=== PATIENT | male | born 1985 | race Caucasian/White ===

== ENCOUNTER 2017-02-13 12:13 | Emergency (ER) | payer MEDICAID | END 2017-02-13 12:50 | disposition home or self-care (01) | DX: J40 Bronchitis, not specified as acute or chronic (principal); R03.0 Elevated blood-pressure reading, without diagnosis of hypertension; G62.9 Polyneuropathy, unspecified; K21.9 Gastro-esophageal reflux disease without esophagitis; F17.200 Nicotine dependence, unspecified, uncomplicated ==

== ENCOUNTER 2017-06-06 19:01 | Emergency (ER) | payer MEDICAID ==
[2017-06-06 19:16] VITALS: BP 121/83
--- NOTE | 2017-06-06 20:31 | ED Physician Documentation ---
PD HPI HEADACHE - Stated complaint Stated Complaint: MIGRAINE - Chief complaint Chief Complaint: Neuro - History obtained from History obtained from: Patient - History of Present Illness Timing - onset: How many months ago (1 1/2 months of neck pain to some degree after a head injury (tree branch fell onto his tent when camping, with reported LOC). Seen in [place] [facility] with CTs of head and neck. Released from ER. has had some neck pain to some degree since, and intermittent migraine type headaches. Current migraine has been the past day.) Timing - onset during: Rest Timing - duration: Days (1) Timing - details: Gradual onset, Still present Worst headache ever?: No: Worst headache ever? Location: Back (over the top to frontal area) Quality: Throbbing, Aching Associated symptoms: Nausea. No: Fever, Weakness, Numbness, Vision changes Improved by: Dark room. No: Meds (tramadol has been helping neck but is out. Has not had any physical treatment such as PT nor chiropractic.) Worsened by: Light Contributing factors: Trauma (see above). No: Recent illness Similar symptoms before: Diagnosis (migraines infrequent in the past, several now the past month.) Review of Systems Constitutional: denies: Fever, Chills Eyes: reports: Photophobia. denies: Loss of vision Ears: denies: Ear pain, Drainage/discharge Nose: denies: Rhinorrhea / runny nose, Congestion Throat: denies: Sore throat Respiratory: denies: Cough GI: reports: Nausea. denies: Vomiting, Diarrhea Skin: denies: Rash, Lesions Neurologic: reports: Headache. denies: Focal weakness, Numbness, Near syncope, Altered mental status PD PAST MEDICAL HISTORY - Past Medical History Past Medical History: Yes Cardiovascular: None Respiratory: None Neuro: Peripheral neuropathy, Seizure disorder Endocrine/Autoimmune: None GI: GERD, Chronic diarrhea : None HEENT: None Psych: None Musculoskeletal: None Derm: None - Past Surgical History Past Surgical History: Yes General: Colonoscopy HEENT: Tonsil/Adenoidectomy - Present Medications Home Medications: Ambulatory Orders Medication Instructions Recorded Confirmed Gabapentin [Neurontin] 800 mg PO TID 01/03/15 06/06/17 Butalb/Acetaminophen/Caffeine 1 each PO Q8H PRN #15 capsule 06/06/17 [[id number]-Fhsehdwf-Udii 50-300-40] Dexamethasone [Decadron] 4 mg PO DAILY #5 tablet 06/06/17 Naproxen 375 mg PO BID #20 tablet 06/06/17 Promethazine [Phenergan] 25 mg PO Q8H PRN #15 tab 06/06/17 Tizanidine HCl 4 mg PO TID #30 capsule 06/06/17 Tramadol HCl 50 mg PO Q6H PRN #30 tablet 06/06/17 tiZANidine [Zanaflex] 4 mg PO DAILY PM 06/06/17 06/06/17 - Allergies Allergies/Adverse Reactions: Allergies Allergy/AdvReac Type Severity Reaction Status Date / Time No Known Drug Allergies Allergy Verified 06/06/17 21:06 - Social History Does the pt smoke?: No Smoking Status: Former smoker Does the pt drink ETOH?: No Does the pt have substance abuse?: No - Immunizations Immunizations are current?: Yes Immunizations: TDAP current <10years - POLST Patient has POLST: No PD ED PE NORMAL - Vitals Vital signs reviewed: Yes - General General: Alert and oriented X 3, Well developed/nourished - HEENT HEENT: Atraumatic, PERRL (light sensitive), Pharynx benign - Neck Neck: Supple, no meningeal sign, No adenopathy, Other (muscular tenderness bilaterally without bony midline tender. ) - Cardiac Cardiac: RRR, No murmur - Respiratory Respiratory: Clear bilaterally - Abdomen Abdomen: Soft, Non tender - Derm Derm: Normal color, Warm and dry - Extremities Extremities: No tenderness to palpate, Normal ROM s pain - Neuro Neuro: Alert and oriented X 3, filler wiper 2-12 intact, No motor deficit, No sensory deficit, Normal speech - Psych Psych: Normal mood Results - Vitals Vitals: Vital Signs - 24 hr 06/06/17 19:14 Temperature 36.7 C Heart Rate 87 Respiratory 14 Rate Blood Pressure 121/83 H O2 Saturation 100 Oxygen O2 Source Room air PD MEDICAL DECISION MAKING - ED course Complexity details: considered differential (more chronic neck pain that is worse, and now migraine type symptoms as well. No red flags per se. Has had several since head injury April 23, and was seen in [facility] ER with CT head and neck per patient. ), d/w patient Departure - Departure Disposition: 01 Home, Self Care Clinical Impression: Neck muscle strain Qualifiers: Encounter type: initial encounter Qualified Code(s): S16.1XXA - Strain of muscle, fascia and tendon at neck level, initial encounter Headache, migraine Qualifiers: Migraine type: without aura Status migrainosus presence: without status migrainosus Intractability: not intractable Qualified Code(s): G43.009 - Migraine without aura, not intractable, without status migrainosus Condition: Stable Record reviewed to determine appropriate education?: Yes Instructions: ED Sprain Strain Neck, ED Headache Migraine Follow-Up: [facility] [Provider Group] Prescriptions: Butalb/Acetaminophen/Caffeine [Csnyut-Yzweufji-Fpii 50-300-40] 1 each PO Q8H PRN #15 capsule PRN Reason: Migraine Dexamethasone [Decadron] 4 mg PO DAILY #5 tablet Naproxen 375 mg PO BID #20 tablet Promethazine [Phenergan] 25 mg PO Q8H PRN #15 tab PRN Reason: Migraine Tizanidine HCl 4 mg PO TID #30 capsule Tramadol HCl 50 mg PO Q6H PRN #30 tablet PRN Reason: Pain Comments: Heat and gentle stretching for the neck. I might suggest chiropractic or massage for the area as well. Continue tizanidine but increase it to 3 times a day for the next week and a half. Naproxen twice daily as an anti-inflammatory and for the pain. Dexamethasone daily for 5 more days as an anti-inflammatory as well. Add tramadol if needed for pain. Can also add Tylenol. For the migraine headaches in particular, could also try Fioricet along with promethazine. Follow-up with [facility] [address], call for an appointment. Discharge Date/Time: 06/06/17 21:07
[2017-06-06] MEDS ORDERED: traMADol 50 MG TABLET PO STA (20:54)
[2017-06-06] MEDS ORDERED: DEXAMETHASONE 10 MG/ML VIAL PO STA (20:54)
[2017-06-06] MEDS ORDERED: METHOCARBAMOL 500 MG TABLET PO STA (20:55)
[2017-06-06] MEDS ORDERED: PROMETHAZINE 25 MG TABLET PO STA (21:01)
[2017-06-06] MEDS ORDERED: DEXAMETHASONE 10 MG/ML VIAL ONE (21:03)
[2017-06-06] MEDS ORDERED: traMADol 50 MG TABLET PO ONE (21:03)
[2017-06-06] MEDS ORDERED: METHOCARBAMOL 500 MG TABLET PO ONE (21:04)
[2017-06-06] MEDS ORDERED: PROMETHAZINE 25 MG TABLET ONE (21:07)
== END 2017-06-06 21:07 | disposition home or self-care (01) ==
LOC: ED 19:01
DX: S16.1XXD Strain of muscle, fascia and tendon at neck level, subsequent encounter (principal); W20.8XXD Other cause of strike by thrown, projected or falling object, subsequent encounter; G43.009 Migraine without aura, not intractable, without status migrainosus; G62.9 Polyneuropathy, unspecified; K21.9 Gastro-esophageal reflux disease without esophagitis; Z87.891 Personal history of nicotine dependence
CPT/HCPCS: 99283; A9270; Q0169

== ENCOUNTER 2018-11-14 14:53 | Inpatient (IN) | payer MEDICAID ==
[2018-11-14 16:54] LABS: BASOPHILS % (AUTO) 0.5 %; EOSINOPHILS % (AUTO) 0.2 %; HGB - HEMOGLOBIN 16.1 g/dL (14.0-18.0); LYMPHOCYTES % (AUTO) 27.2 %; MEAN CORPUSCULAR HGB CONC 34.4 g/dL (32.0-36.0); MEAN CORPUSCULAR VOLUME 104.5 fL (80.0-94.0); MEAN PLATELET VOLUME 7.5 fL (7.4-11.4); MONOCYTES # (AUTO) 0.4 10^3/uL (0.0-1.0); MONOCYTES % (AUTO) 11.6 %; NEUTROPHILS # (AUTO) 2.3 10^3/uL (1.5-6.6); NEUTROPHILS % (AUTO) 60.5 %; PLT - PLATELET COUNT 173 10^3/uL (130-450); RED BLOOD COUNT 4.48 10^6/uL (4.70-6.10); RED CELL DISTRIBUTION WIDTH 15.6 % (12.0-15.0); WHITE BLOOD COUNT 3.7 x10^3/uL (4.8-10.8)
[2018-11-14 17:14] LABS: ALBUMIN/GLOBULIN RATIO 1.3 (1.0-2.2); BILIRUBIN,TOTAL 6.2 mg/dL (0.2-1.0); CALCIUM 9.1 mg/dL (8.5-10.3); CREATININE 0.8 mg/dL (0.6-1.2); TOTAL PROTEIN 7.1 g/dL (6.7-8.2)
[2018-11-14] MEDS ORDERED: SODIUM CHLORIDE 0.9% 1,000 ML IV ONE ×3 (18:49→23:50)
--- NOTE | 2018-11-14 19:04 | ED Physician Documentation ---
PD HPI NVD - Stated complaint Stated Complaint: VOMITING, HEADACHE - Chief complaint Chief Complaint: Abd Pain - History obtained from History obtained from: Patient - History of Present Illness Timing - onset: How many days ago (3) Timing - duration: Days Timing - details: Abrupt onset Pain level max: 5 Pain level now: 5 Associated symptoms: Abdominal pain (crampy, diffuse), Other (nausea, vomiting, diarrhea). No: Fever Contributing factors: Alcohol use (alcoholic) Improved by: Vomiting Worsened by: Eating Recently seen: Not recently seen - Additonal information Additional information: 33-year-old male presents to the emergency department nausea, vomiting, diarrhea over the past 3 days. He is an alcoholic and drinks approximately 12 alcoholic beverages a day. States that he had to have an alcoholic drink to come here today. Review of Systems Ten Systems: 10 systems reviewed and negative Constitutional: denies: Fever, Chills Nose: denies: Rhinorrhea / runny nose, Congestion Throat: denies: Sore throat Cardiac: denies: Chest pain / pressure Respiratory: denies: Cough GI: reports: Diarrhea. denies: Constipation, Hematemesis, Bloody / black stool : denies: Dysuria Skin: denies: Rash PD PAST MEDICAL HISTORY - Past Medical History Cardiovascular: None Respiratory: None Endocrine/Autoimmune: None GI: GERD, Chronic diarrhea : None HEENT: None Psych: None Musculoskeletal: None Derm: None - Past Surgical History Past Surgical History: Yes General: Colonoscopy HEENT: Tonsil/Adenoidectomy - Present Medications Home Medications: Ambulatory Orders Medication Instructions Recorded Confirmed Gabapentin [Neurontin] 800 mg PO TID 01/03/15 06/06/17 Butalb/Acetaminophen/Caffeine 1 each PO Q8H PRN #15 capsule 06/06/17 [[id number]-Wivovyzr-Johb 50-300-40] Dexamethasone [Decadron] 4 mg PO DAILY #5 tablet 06/06/17 Naproxen 375 mg PO BID #20 tablet 06/06/17 Promethazine [Phenergan] 25 mg PO Q8H PRN #15 tab 06/06/17 Tizanidine HCl 4 mg PO TID #30 capsule 06/06/17 Tramadol HCl 50 mg PO Q6H PRN #30 tablet 06/06/17 tiZANidine [Zanaflex] 4 mg PO DAILY PM 06/06/17 06/06/17 - Allergies Allergies/Adverse Reactions: Allergies Allergy/AdvReac Type Severity Reaction Status Date / Time No Known Drug Allergies Allergy Verified 06/06/17 21:06 - Social History Does the pt smoke?: No Smoking Status: Former smoker Does the pt drink ETOH?: No Does the pt have substance abuse?: No - Immunizations Immunizations are current?: Yes Immunizations: TDAP current <10years - POLST Patient has POLST: No PD ED PE NORMAL - Vitals Vital signs reviewed: Yes - General General: Alert and oriented X 3, No acute distress, Well developed/nourished - HEENT HEENT: PERRL, Moist mucous membranes, Other (Mild jaundice) - Neck Neck: Supple, no meningeal sign - Cardiac Cardiac: RRR, Strong equal pulses - Respiratory Respiratory: No respiratory distress, Clear bilaterally - Abdomen Abdomen: Soft, Non distended, Other (Tender palpation right upper quadrant. No peritoneal signs) - Back Back: No CVA TTP, No spinal TTP - Derm Derm: Warm and dry, No rash - Extremities Extremities: No edema - Neuro Neuro: Alert and oriented X 3 - Psych Psych: Normal mood, Normal affect Results - Vitals Vitals: Vital Signs - 24 hr 11/14/18 11/14/18 11/14/18 15:32 18:41 21:05 Temperature 36.8 C 36.7 C Heart Rate 114 H 96 86 Respiratory 18 16 18 Rate Blood Pressure 145/88 H 143/94 H 119/79 O2 Saturation 99 98 98 11/14/18 22:28 Temperature Heart Rate 90 Respiratory 18 Rate Blood Pressure 107/77 O2 Saturation 96 Oxygen O2 Source Room air - Labs Labs: Laboratory Tests 11/14/18 11/14/18 11/14/18 15:38 16:49 16:49 WBC 3.7 L RBC 4.48 L Hgb 16.1 Hct 46.9 MCV 104.5 H MCH 36.0 H MCHC 34.4 RDW 15.6 H Plt Count 173 MPV 7.5 Neut # (Auto) 2.3 Lymph # (Auto) 1.0 L [place] # (Auto) 0.4 Eos # (Auto) 0.0 Baso # (Auto) 0.0 Absolute Nucleated RBC 0.00 Nucleated RBC % 0.1 PT INR APTT Sodium 128 L Potassium 3.7 Chloride 87 L Carbon Dioxide 29 Anion Gap 12.0 BUN 13 Creatinine 0.8 Estimated GFR (MDRD) 111 Glucose 88 Calcium 9.1 Total Bilirubin 6.2 H AST 779 H ALT 534 H Alkaline Phosphatase 79 Total Protein 7.1 Albumin 4.0 Globulin 3.1 Albumin/Globulin Ratio 1.3 Lipase 69 H Ethyl Alcohol Influenza A (Rapid) Negative Influenza B (Rapid) Negative 11/14/18 11/14/18 11/14/18 16:49 16:49 16:49 WBC RBC Hgb Hct MCV MCH MCHC RDW Plt Count MPV Neut # (Auto) Lymph # (Auto) [place] # (Auto) Eos # (Auto) Baso # (Auto) Absolute Nucleated RBC Nucleated RBC % PT 18.5 H INR 1.6 H APTT 41.3 H Sodium Potassium Chloride Carbon Dioxide Anion Gap BUN Creatinine Estimated GFR (MDRD) Glucose Calcium Total Bilirubin AST ALT Alkaline Phosphatase Total Protein Albumin Globulin Albumin/Globulin Ratio Lipase Ethyl Alcohol 177.0 Influenza A (Rapid) Influenza B (Rapid) - Rads (name of study) RUQ US Radiology: Prelim report reviewed, EMP read contemporaneously, See rad report (Large fatty liver. Mild irregular gallbladder wall thickening, with no gallstones or dilated ducts. ) PD MEDICAL DECISION MAKING - ED course Complexity details: reviewed old records, reviewed results, re-evaluated patient, considered differential, d/w patient, d/w training consultant ED course: 33-year-old male, heavy alcoholic who presents to the emergency department with what appears to be an alcoholic hepatitis. Given Ativan, Zofran. His meld score is 25 and his maddrey discriminant factor is 36. I discussed with the hospitalist here, Dr. Gastelum who is concerned that he may go into withdrawal and need an ICU bed, there are no ICU beds available here. Contacted [facility] in [place], however no beds are available there either. No beds available at [facility]. I discussed the case with Dr. Vasquez at [address], [facility] in [place], He does not feel that the patient needs an ICU bed at this time. He states should the patient require ICU level care, he will gladly accept the patient in transfer at that point. Recommends admission here and to call him if the patient worsens to the point of needing ICU bed. Recontacted Dr. Gastelum, she accepts an admission at this time. This document was made in part using voice recognition software. While efforts are made to proofread this document, sound alike and grammatical errors may occur. Departure - Departure Disposition: 66 [facility] DC/Xfer Clinical Impression: Hyponatremia, Dehydration Alcoholic hepatitis Qualifiers: Ascites presence: without ascites Qualified Code(s): K70.10 - Alcoholic hepatitis without ascites Alcohol intoxication Qualifiers: Complication of substance-induced condition: uncomplicated Qualified Code(s): F10.920 - Alcohol use, unspecified with intoxication, uncomplicated Condition: Stable Discharge Date/Time: 11/15/18 00:36
[2018-11-14] MEDS ORDERED: ONDANSETRON 4 MG/2 ML VIAL IVP STA (19:05)
[2018-11-14] MEDS ORDERED: LORazepam 2 MG/ML VIAL IVP STA ×2 (19:05→23:46)
[2018-11-14] MEDS ORDERED: PANTOPRAZOLE 40 MG VIAL IVP STA (19:05)
[2018-11-14 19:13] LABS: INR 1.6 (0.8-1.2); PT - PROTHROMBIN TIME 18.5 secs (9.9-12.6)
--- NOTE | 2018-11-14 20:01 | Ultrasound Report ---
Reason: elevated LFT's, elevated Bilirubin Procedure Date: 11/14/2018 Accession Number: [id number] / [id number] Procedure: US - Abdomen Limited CPT Code: FULL RESULT: EXAM: ABDOMEN ULTRASOUND LIMITED, RUQ EXAM DATE: 11/14/2018 07:49 PM. CLINICAL HISTORY: Elevated LFTs. Elevated Bilirubin. COMPARISON: None. TECHNIQUE: Real-time scanning was performed with static images obtained. FINDINGS: Liver: Enlarged. Heterogeneous echogenic echotexture. 20 cm. Main portal vein flow: Hepatopetal. Gallbladder: Mild irregular wall thickening. No stones or sonographic Stokes's sign. Biliary System: CBD measures 4 mm. No intrahepatic or extrahepatic ductal dilatation. Other: The visualized pancreas and right kidney are unremarkable. No free fluid. IMPRESSION: 1. Large fatty liver. 2. Mild irregular gallbladder wall thickening, with no gallstones or dilated ducts. RADIA
[2018-11-15] MEDS ORDERED: MAGNESIUM SULFATE 2 GRAM 2 GM/50 ML BAG IV ONE (00:06)
[2018-11-15 00:36] LABS: BASOPHILS % (AUTO) 0.4 %; EOSINOPHILS % (AUTO) 0.7 %; HGB - HEMOGLOBIN 13.4 g/dL (14.0-18.0); LYMPHOCYTES # (AUTO) 1.2 10^3/uL (1.5-3.5); LYMPHOCYTES % (AUTO) 37.1 %; MEAN CORPUSCULAR HEMOGLOBIN 36.5 pg (27.0-31.0); MEAN CORPUSCULAR HGB CONC 34.9 g/dL (32.0-36.0); MEAN CORPUSCULAR VOLUME 104.5 fL (80.0-94.0); MEAN PLATELET VOLUME 7.2 fL (7.4-11.4); MONOCYTES # (AUTO) 0.3 10^3/uL (0.0-1.0); MONOCYTES % (AUTO) 10.1 %; NEUTROPHILS # (AUTO) 1.7 10^3/uL (1.5-6.6); NEUTROPHILS % (AUTO) 51.7 %; PLT - PLATELET COUNT 131 10^3/uL (130-450); RED BLOOD COUNT 3.68 10^6/uL (4.70-6.10); RED CELL DISTRIBUTION WIDTH 15.3 % (12.0-15.0); WHITE BLOOD COUNT 3.2 x10^3/uL (4.8-10.8)
[2018-11-15 00:40] LABS: PT - PROTHROMBIN TIME 22.7 secs (9.9-12.6)
[2018-11-15 00:51] LABS: ALBUMIN 2.9 g/dL (3.2-5.5); ALBUMIN/GLOBULIN RATIO 1.3 (1.0-2.2); CALCIUM 7.6 mg/dL (8.5-10.3); CREATININE 0.7 mg/dL (0.6-1.2); MAGNESIUM 1.6 mg/dL (1.7-2.8); TOTAL PROTEIN 5.1 g/dL (6.7-8.2)
[2018-11-15] MEDS: SODIUM CHLORIDE FLUSH 0.9% 10 ML SYRINGE IVP SCH ×4 (01:17→17:27)
[2018-11-15] MEDS: IBUPROFEN 400 MG TABLET PO PRN ×4 (01:37→20:08)
[2018-11-15] MEDS: ONDANSETRON ODT 4 MG TABLET TL PRN ×2 (01:37→12:41)
--- NOTE | 2018-11-15 01:39 | HISTORY & PHYSICAL EXAMINATION ---
Chief Complaint - Chief Complaint Chief Complaint: Nausea and vomiting with abdominal pain in an alcoholic for the last 3 days History of Present Illness - Admitted From Admitted From:: Home/emergency room - History Obtained From Records Reviewed: Miriam History obtained from: Patient, Dr. Mayer, [facility] Exam Limitations: Mild sleepiness - History of Present Illness HPI Comment/Other: This is an unfortunate 33-year-old white male who is a very poor historian but this is currently intoxicated. He has a history of alcohol abuse, and has previous withdrawal seizures. He has been hospitalized 2-3 times in our hospit al because of this. He is also been seen in the emergency room for multiple encounters. He presented himself to the emergency room today because of nausea, vomiting, diarrhea for the last 3 days. He drinks approximately 12 hard cider drinks a day. He has diffuse crampy abdominal pain, no blood in his stool. Unable to keep anything down except the alcohol for the last 3 days. He was evaluated in the emergency room by Dr. Mayer. Afebrile, tachycardic at 114, with a blood pressure of 145/88 and an oxygen saturation of 99. He is alert and oriented. He is a soft, nondistended abdomen. But he is tender over the right upper quadrant. No peritoneal signs. He has mild jaundice. His whit e cell count is low at 3.7, hemoglobin is 16.1. Platelets 173. His INR is 1.6. Sodium 128. BUN 13, creatinine 0.8, total bili 6.2, AST 779, ALT 534, lipase 69. Ethyl alcohol level is 177. Because of his acute alcoholic hepatitis, that is quite severe, Dr. Mayer attempted transfer to an outside facility. Especially for a higher level of care. Currently there are no beds at [facility]. [facility] in [place] did agree to take the patient only if he decompensated enough to need ICU care. History - Past Medical History Cardiovascular: reports: None Respiratory: reports: None Neuro: reports: Seizure disorder Endocrine/Autoimmune: reports: None GI: reports: GERD, Chronic diarrhea : reports: None HEENT: reports: None Psych: reports: None Musculoskeletal: reports: None Derm: reports: None MRSA Hx?: No - Past Surgical History General: reports: Colonoscopy HEENT: reports: Tonsil/Adenoidectomy - Family & Social History Family History Comment/Other: Father of complications of alcoholism when he was in his 60s. Complication included acute alcohol poisoning. Mother is alive And she also has problems with alcoholism. One sister is alive and well positive for diabetes. Positive for heart disease. Negative for cancer. No children Living arrangement: At home Living Situation: With spouse/s.o. Social History Notes: Social history born in [facility]. Living on [facility] since the age of 1. Endorses the use of cannabis, but no heroin, speed, methamphetamines. Drinks on a daily basis.12 hard ciders a day. Never smoked. Unable to hold down a job. without any children.Currently living with his girlfriend in [place]. She does not have any problems with alcoholism or recreational substance abuse. - Substance History Use: Uses substance without health or social issues: Cannabis Abuse: Recurrent use of substance despite neg consequences: Alcohol Abuse Issues: Intoxication, Anxiety Disorder, Other (Seizures and alcoholic hepatitis with alcoholic liver disease) Dependence: Experiences withdrawal or developed tolerances: Alcohol Dependence Issues: Intoxication, Anxiety Disorder, Withdrawal - POLST Patient has POLST: No POLST Status: Full Code Meds/Allgy - Home Medications Home Medications: Ambulatory Orders Medication Instructions Recorded Confirmed Gabapentin [Neurontin] 800 mg PO TID 01/03/15 06/06/17 Butalb/Acetaminophen/Caffeine 1 each PO Q8H PRN #15 capsule 06/06/17 [[id number]-Likglubb-Jcdt 50-300-40] Dexamethasone [Decadron] 4 mg PO DAILY #5 tablet 06/06/17 Naproxen 375 mg PO BID #20 tablet 06/06/17 Promethazine [Phenergan] 25 mg PO Q8H PRN #15 tab 06/06/17 Tizanidine HCl 4 mg PO TID #30 capsule 06/06/17 Tramadol HCl 50 mg PO Q6H PRN #30 tablet 06/06/17 tiZANidine [Zanaflex] 4 mg PO DAILY PM 06/06/17 06/06/17 - Allergies Allergies/Adverse Reactions: Allergies Allergy/AdvReac Type Severity Reaction Status Date / Time No Known Drug Allergies Allergy Verified 06/06/17 21:06 Review of Systems - Constitutional Constitutional: reports: Fatigue, Malaise, Weakness, Poor appetite, Diaphoresis. denies: Fever, Chills - Eyes Eyes: denies: Pain, Irritation, Amaurosis, Blurred vision, Field loss, Vision loss - Ears, Nose & Throat Ears, Nose & Throat: denies: Ear pain, Hearing loss, Hearing aids, Tinnitus, Vertigo, Nasal obstruction, Nasal congestion, Postnasal drainage, Sore throat - Cardiovascular Cariovascular: reports: Decr. exercise tolerance. denies: Irregular heart rate, Palpitations, Chest pain, Edema, Lightheadedness, Syncope, Exertional dyspnea - Respiratory Respiratory: reports: Cough. denies: Sputum production, Wheezing, Snoring, Hemoptysis, Orthopnea, Apnea - Gastrointestinal Gastrointestinal: reports: Abdominal pain, Abdominal distention, Diarrhea, Nausea, Vomiting, Reflux/heartburn, Poor appetite. denies: Black stools, Bloody stools, Coffee grounds emesis, Bloating - Genitourinary Genitourinary: denies: Dysuria, Frequency, Urgency, Hematuria, Incontinence - Musculoskeletal Musculoskeletal: reports: Muscle aches. denies: Muscle pain, Back pain, Stiffness - Integumentary Integumentary: denies: Rash, Pruritis, Lesions, Dryness - Neurological Neurological: reports: General weakness, Headache. denies: Focal weakness, Dizziness, Numbness, Memory problems, Pre-existing deficit - Psychiatric Psychiatric: reports: Depression. denies: Anxiety, Suicidal, Delusions - Endocrine Endocrine: denies: Polyuria, Polydypsia, Polyphagia - Hematologic/Lymphatic Hematologic/Lymphatic: reports: Anemia, Bruising Prior Level of Functionality: Still able to do all his activities of daily living when he is well. 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 Still drives a car. Currently living with his girlfriend in [place]. Sometimes lives with his mother. Exam - Vital Signs Vital Signs: Vital Signs x48h Temp Pulse Pulse Resp BP BP Pulse Ox 11/15/18 00:50 36.8 C 76 16 132/83 H 98 11/15/18 00:06 95 16 126/78 97 11/14/18 22:28 90 18 107/77 96 11/14/18 21:05 86 18 119/79 98 11/14/18 18:41 36.7 C 96 16 143/94 H 98 - Physical Exam General Appearance: positive: No acute distress, Lethargic (Eyes are closed, but he will open them at my insistence, and slowly respond to my questions.) Eyes Bilateral: positive: PERRL, EOMI, Other (Scleral icterus present) Neck: positive: No JVD, Lymphadenopathy (R), Lymphadenopathy (L). negative: Sti ff neck, Carotid bruit Respiratory: positive: Chest non-tender, No respiratory distress. negative: Wheezes, Rales, Rhonchi Cardiovascular: positive: Regular rate & rhythm, Tachycardia. negative: Gallop/S4, Friction rub Peripheral Pulses: positive: 1+ Abdomen: positive: Nml bowel sounds, Tenderness (Mild, right upper quadrant and epigastrium.), Hepatomegaly, Other (Mild distention). negative: Guarding, Rebound Skin: positive: Warm, Diaphoresis, Pallor Extremities: positive: Non-tender, Full ROM, No pedal edema Neurologic/Psychiatric: positive: Oriented x3, CN's nml (2-12), Motor nml, Weakness, Other (So far no tremors. No agitation.) Reflexes: Bicep (R): 1+, Bicep (L): 1+, Knee (R): 1+, Knee (L): 1+, Ankle (R): 0, Ankle (L): 0 Babinski Reflex: Right: Down, Left: Down Conclusion/Plan - Problem List (1) Alcoholic hepatitis Conclusion/Plan: Mirza alcoholic hepatitis score is 6 points. Those with a score greater than 9 may benefit from steroids. Meld score is 24. Although he appears to be sedated, there does not appear to be hepatic encephalopathy. Ammonia level was not done, but will be ordered for the morning. Plan: Monitor for infection Monitor for renal failure Ulcer prophylaxis with proton pump inhibitor. Ammonia level in the morning Banana bag Magnesium sulfate 1 g Acute hepatitis panel in the morning Qualifiers: Ascites presence: without ascites Qualified Code(s): K70.10 - Alcoholic hepatitis without ascites (2) Hx of seizure disorder Conclusion/Plan: Due to alcohol withdrawal. At this time he is still currently intoxicated. He may need Keppra for a short duration of time while he is in the hospital. At this time will continue to monitor. (3) Alcohol abuse Conclusion/Plan: At this time without ascites. Mild liver failure. Strongly encouraged to refrain from drinking and have complete abstinence from alcohol. I have explained to him the severity of his illness tonight. I also explained to him that alcohol withdrawal and alcohol withdrawal seizures carry within themselves their own mortality rate. I have encouraged him to seek whatever help he can whether his spiritual, practical, meditative, etc., to stop drinking. He still defines himself as having a quality of life and that he has a mother that loves him and a girlfriend that loves him. (4) Pancytopenia Conclusion/Plan: Most likely from alcohol toxicity, direct the bone marrow. No evidence of th rombocytopenia. Plan: Anemia panel Banana bag - Lab Results Fish Bones: 11/15/18 00:25 11/15/18 00:25 - Diagnostic Imaging Results Diagnostic Imaging Results: positive: Final report reviewed Diagnostic Imaging Results Comments: EXAM: [id number] US/ABDLTD ([id number]) Reason: elevated LFT's, elevated Bilirubin Procedure Date: 11/14/2018 Accession Number: [id number] / [id number] Procedure: US - Abdomen Limited CPT Code: FULL RESULT: EXAM: ABDOMEN ULTRASOUND LIMITED, RUQ EXAM DATE: 11/14/2018 07:49 PM. CLINICAL HISTORY: Elevated LFTs. Elevated Bilirubin. COMPARISON: None. TECHNIQUE: Real-time scanning was performed with static images obtained. FINDINGS: Liver: Enlarged. Heterogeneous echogenic echotexture. 20 cm. Main portal vein flow: Hepatopetal. Gallbladder: Mild irregular wall thickening. No stones or sonographic Stokes's sign. Biliary System: CBD measures 4 mm. No intrahepatic or extrahepatic ductal dilatation. Other: The visualized pancreas and right kidney are unremarkable. No free fluid. IMPRESSION: 1. Large fatty liver. 2. Mild irregular gallbladder wall thickening, with no gallstones or dilated ducts. Core Measures - Anticipated LOS I expect patient to be DC'd or transferred within 96 hours.: Yes - DVT/VTE - Prophylaxis VTE/DVT Device ordered at admit?: Yes
[2018-11-15 02:18] LABS: MUDS CUTOFF CONCENTRATIONS CUTOFF CONC BELOW:
[2018-11-15 02:29] LABS: AMPHETAMINE SCREEN,URINE NEGATIVE (NEGATIVE); BENZODIAZEPINES SCREEN, URINE POSITIVE (NEGATIVE); COCAINE SCREEN URINE NEGATIVE (NEGATIVE); METHADONE SCREEN, URINE NEGATIVE (NEGATIVE); METHAMPHETAMINES SCREEN, URINE NEGATIVE (NEGATIVE); OPIATE SCREEN, URINE NEGATIVE (NEGATIVE); OXYCODONE SCREEN, URINE NEGATIVE (NEGATIVE); PROPOXYPHENE SCREEN, URINE NEGATIVE (NEGATIVE); TRICYCLIC ANTIDEPRESSANT,URINE NEGATIVE (NEGATIVE)
[2018-11-15 06:03] LABS: MEAN RETIC VALUE 119.6; RED BLOOD COUNT 3.7 10^6/uL (4.70-6.10)
[2018-11-15 06:24] LABS: % IRON SATURATION 92 % (20-50); IRON 149 ug/dL (45-182); TOTAL IRON BINDING CAPACITY 162 ug/dL (250-450); TRANSFERRIN 116 mg/dL (180-329)
[2018-11-15] MEDS: PANTOPRAZOLE 40 MG VIAL IVP SCH (06:42)
[2018-11-15] MEDS: ONDANSETRON 4 MG/2 ML VIAL IVP PRN ×2 (08:54→14:56)
[2018-11-15] MEDS: POLYETHYLENE GLYCOL 3350 17 GM PACKET PO SCH (08:56)
[2018-11-15] MEDS ORDERED: MULTIVITAMIN 10 ML, THIAMINE INJ 100 MG, FOLIC ACID INJ 1 MG in SODIUM CHLORIDE 0.9% 1,... IV SCH (09:00)
--- NOTE | 2018-11-15 09:29 | PROVIDER PROGRESS NOTE ---
Subjective - Prog Note Date Prog Note Date: 11/15/18 Prog Note Time: 08:00 - Subjective Subjective: Patient with continued nausea, although without emesis. No further diarrhea. He is sleepy this morning. Reports that he is thirsty Current Medications - Current Medications Current Medications: Active Medications Chlordiazepoxide HCl (Librium) 25 mg PO Q6HR [facility] Multivitamins 10 ml/ Thiamine HCl 100 mg/ Folic Acid 1 mg/Sodium Chloride 1,011.2 mls @ 100 mls/hr IV DAILY [facility] Last Admin: 11/15/18 09:54 Dose: 100 mls/hr Ibuprofen (Motrin) 400 mg PO Q4HR PRN PRN Reason: Pain 1 to 4 Last Admin: 11/15/18 08:53 Dose: 400 mg Lorazepam (Ativan Inj (Vial)) 1 mg IVP Q30M PRN; Protocol PRN Reason: CIWA >8 Ondansetron HCl (Zofran Inj) 4 mg IVP Q6HR PRN PRN Reason: Nausea / Vomiting Last Admin: 11/15/18 08:54 Dose: 4 mg Ondansetron HCl (Zofran Odt) 4 mg TL Q6HR PRN PRN Reason: Nausea / Vomiting Last Admin: 11/15/18 01:37 Dose: 4 mg Oxycodone HCl (Roxicodone) 5 mg PO Q4HR PRN PRN Reason: Pain 5 to 7 Pantoprazole Sodium (Protonix) 40 mg IVP QDAC [facility] Last Admin: 11/15/18 06:42 Dose: 40 mg Polyethylene Glycol (Miralax) 17 gm PO DAILY [facility] Last Admin: 11/15/18 08:56 Dose: Not Given Prochlorperazine Edisylate (Compazine Inj) 10 mg IVP Q6HR PRN PRN Reason: Nausea / Vomiting Sodium Chloride (Normal Saline Flush 0.9%) 10 ml IVP PRN PRN PRN Reason: NEEDED PER PROVIDER ORDERS Sodium Chloride (Normal Saline Flush 0.9%) 10 ml IVP 0100,0900,1700 [facility] Last Admin: 11/15/18 08:54 Dose: 10 ml Home Meds: Gabapentin [Neurontin] 800 mg PO QID 01/03/15 tiZANidine [Zanaflex] 4 mg PO BID PRN 06/06/17 Bupropion HCl [Bupropion HCl Sr] 150 mg PO DAILY 11/15/18 Propranolol HCl 20 mg PO QID PRN 11/15/18 SUMAtriptan succinate [Sumatriptan Succinate] 100 mg PO ONCE PRN MDD 200 MG 11/15/18 Objective - Vital Signs/Intake & Output Vital Signs: Vital Signs x48h Temp Pulse Resp BP Pulse Ox 11/15/18 08:22 36.6 C 75 16 128/75 96 11/15/18 05:40 37.0 C 79 16 131/76 H 98 Intake & Output: Intake & Output 11/12/18 11/13/18 11/14/18 11/15/18 23:59 23:59 23:59 23:59 Intake Total 1000 2050 Output Total 350 Balance 1000 1700 - Objective General Appearance: positive: No acute distress, Alert Eyes Bilateral: positive: Normal inspection, PERRL, EOMI Eyes: OU Scleral icterus ENT: positive: ENT inspection nml, Pharynx nml Neck: positive: Nml inspection, No JVD Respiratory: positive: Chest non-tender, No respiratory distress, Breath sounds nml Cardiovascular: positive: Regular rate & rhythm Peripheral Pulses: 2+ Dorsalis pedis (R), 2+ Dorsalis pedis (L) Abdomen: positive: No distention, Hepatomegaly, Other (mild RUQ pain) Skin: positive: Warm, Dry Extremities: positive: Full ROM Neurologic/Psychiatric: positive: Oriented x3, CN's nml (2-12), Motor nml, Other (No agitation. No tremors noted at rest.) - Lab Results Fish Bones: 11/15/18 00:25 11/15/18 09:15 Other Labs: Lab Results x24hrs 11/15/18 11/15/18 11/15/18 Range/Units 05:45 05:45 05:45 WBC (4.8-10.8) x10^3/uL RBC (4.70-6.10) 10^6/uL Hgb (14.0-18.0) g/dL Hct (42.0-52.0) % MCV (80.0-94.0) fL MCH (27.0-31.0) pg MCHC (32.0-36.0) g/dL RDW (12.0-15.0) % Plt Count (130-450) 10^3/uL MPV (7.4-11.4) fL Reticulocyte % (Auto) (0.5-2.3) % Neut # (Auto) (1.5-6.6) 10^3/uL Lymph # (Auto) (1.5-3.5) 10^3/uL Butts # (Auto) (0.0-1.0) 10^3/uL Eos # (Auto) (0.0-0.7) 10^3/uL Baso # (Auto) (0.0-0.1) 10^3/uL Absolute Nucleated RBC x10^3/uL Nucleated RBC % /100WBC Absolute Retic (0.020-0.110) 10^6/uL PT (9.9-12.6) secs INR (0.8-1.2) APTT (24.9-33.3) secs Sodium (135-145) mmol/L Potassium (3.5-5.0) mmol/L Chloride (101-111) mmol/L Carbon Dioxide (21-32) mmol/L Anion Gap (6-13) BUN (6-20) mg/dL Creatinine (0.6-1.2) mg/dL Estimated GFR (MDRD) (>89) Glucose (70-100) mg/dL Calcium (8.5-10.3) mg/dL Phosphorus (2.5-4.6) mg/dL Magnesium (1.7-2.8) mg/dL Iron 149 (45-182) ug/dL TIBC 162 L (250-450) ug/dL % Saturation 92 H (20-50) % Transferrin 116 L (180-329) mg/dL Ferritin 2205.0 H (23.9-336.2) ng/mL Total Bilirubin (0.2-1.0) mg/dL GGT (8-55) IU/L AST (10-42) IU/L ALT (10-60) IU/L Alkaline Phosphatase (42-121) IU/L Lactate Dehydrogenase 188 (91-225) IU/L Total Protein (6.7-8.2) g/dL Albumin (3.2-5.5) g/dL Globulin (2.1-4.2) g/dL Albumin/Globulin Ratio (1.0-2.2) Lipase (22-51) U/L Vitamin B12 3236 H (180-914) pg/mL Urine Opiates Screen (NEGATIVE) Ur Oxycodone Screen (NEGATIVE) Urine Methadone Screen (NEGATIVE) Ur Propoxyphene Screen (NEGATIVE) Ur Barbiturates Screen (NEGATIVE) Ur Tricyclics Screen (NEGATIVE) Ur Phencyclidine Scrn (NEGATIVE) Ur Amphetamine Screen (NEGATIVE) U Methamphetamines Scrn (NEGATIVE) U Benzodiazepines Scrn (NEGATIVE) Urine Cocaine Screen (NEGATIVE) U Cannabinoids Screen (NEGATIVE) Ethyl Alcohol mg/dL Influenza A (Rapid) (Negative) Influenza B (Rapid) (Negative) 11/15/18 11/15/18 11/15/18 Range/Units 05:45 01:55 00:25 WBC (4.8-10.8) x10^3/uL RBC 3.70 L (4.70-6.10) 10^6/uL Hgb (14.0-18.0) g/dL Hct (42.0-52.0) % MCV (80.0-94.0) fL MCH (27.0-31.0) pg MCHC (32.0-36.0) g/dL RDW (12.0-15.0) % Plt Count (130-450) 10^3/uL MPV (7.4-11.4) fL Reticulocyte % (Auto) 0.58 (0.5-2.3) % Neut # (Auto) (1.5-6.6) 10^3/uL Lymph # (Auto) (1.5-3.5) 10^3/uL Butts # (Auto) (0.0-1.0) 10^3/uL Eos # (Auto) (0.0-0.7) 10^3/uL Baso # (Auto) (0.0-0.1) 10^3/uL Absolute Nucleated RBC x10^3/uL Nucleated RBC % /100WBC Absolute Retic 0.022 (0.020-0.110) 10^6/uL PT (9.9-12.6) secs INR (0.8-1.2) APTT (24.9-33.3) secs Sodium 132 L (135-145) mmol/L Potassium 3.5 (3.5-5.0) mmol/L Chloride 98 L (101-111) mmol/L Carbon Dioxide 27 (21-32) mmol/L Anion Gap 7.0 (6-13) BUN 10 (6-20) mg/dL Creatinine 0.7 (0.6-1.2) mg/dL Estimated GFR (MDRD) 129 (>89) Glucose 90 (70-100) mg/dL Calcium 7.6 L (8.5-10.3) mg/dL Phosphorus 3.0 (2.5-4.6) mg/dL Magnesium 1.6 L (1.7-2.8) mg/dL Iron (45-182) ug/dL TIBC (250-450) ug/dL % Saturation (20-50) % Transferrin (180-329) mg/dL Ferritin (23.9-336.2) ng/mL Total Bilirubin 5.0 H (0.2-1.0) mg/dL GGT 1118 H (8-55) IU/L AST 517 H (10-42) IU/L ALT 348 H (10-60) IU/L Alkaline Phosphatase 65 (42-121) IU/L Lactate Dehydrogenase (91-225) IU/L Total Protein 5.1 L (6.7-8.2) g/dL Albumin 2.9 L (3.2-5.5) g/dL Globulin 2.2 (2.1-4.2) g/dL Albumin/Globulin Ratio 1.3 (1.0-2.2) Lipase (22-51) U/L Vitamin B12 (180-914) pg/mL Urine Opiates Screen NEGATIVE (NEGATIVE) Ur Oxycodone Screen NEGATIVE (NEGATIVE) Urine Methadone Screen NEGATIVE (NEGATIVE) Ur Propoxyphene Screen NEGATIVE (NEGATIVE) Ur Barbiturates Screen NEGATIVE (NEGATIVE) Ur Tricyclics Screen NEGATIVE (NEGATIVE) Ur Phencyclidine Scrn NEGATIVE (NEGATIVE) Ur Amphetamine Screen NEGATIVE (NEGATIVE) U Methamphetamines Scrn NEGATIVE (NEGATIVE) U Benzodiazepines Scrn POSITIVE H (NEGATIVE) Urine Cocaine Screen NEGATIVE (NEGATIVE) U Cannabinoids Screen NEGATIVE (NEGATIVE) Ethyl Alcohol 58.2 mg/dL Influenza A (Rapid) (Negative) Influenza B (Rapid) (Negative) 11/15/18 11/15/18 11/14/18 Range/Units 00:25 00:25 16:49 WBC 3.2 L (4.8-10.8) x10^3/uL RBC 3.68 L (4.70-6.10) 10^6/uL Hgb 13.4 L (14.0-18.0) g/dL Hct 38.4 L (42.0-52.0) % MCV 104.5 H (80.0-94.0) fL MCH 36.5 H (27.0-31.0) pg MCHC 34.9 (32.0-36.0) g/dL RDW 15.3 H (12.0-15.0) % Plt Count 131 (130-450) 10^3/uL MPV 7.2 L (7.4-11.4) fL Reticulocyte % (Auto) (0.5-2.3) % Neut # (Auto) 1.7 (1.5-6.6) 10^3/uL Lymph # (Auto) 1.2 L (1.5-3.5) 10^3/uL Butts # (Auto) 0.3 (0.0-1.0) 10^3/uL Eos # (Auto) 0.0 (0.0-0.7) 10^3/uL Baso # (Auto) 0.0 (0.0-0.1) 10^3/uL Absolute Nucleated RBC 0.00 x10^3/uL Nucleated RBC % 0.0 /100WBC Absolute Retic (0.020-0.110) 10^6/uL PT 22.7 H (9.9-12.6) secs INR 2.0 H (0.8-1.2) APTT 41.3 H (24.9-33.3) secs Sodium (135-145) mmol/L Potassium (3.5-5.0) mmol/L Chloride (101-111) mmol/L Carbon Dioxide (21-32) mmol/L Anion Gap (6-13) BUN (6-20) mg/dL Creatinine (0.6-1.2) mg/dL Estimated GFR (MDRD) (>89) Glucose (70-100) mg/dL Calcium (8.5-10.3) mg/dL Phosphorus (2.5-4.6) mg/dL Magnesium (1.7-2.8) mg/dL Iron (45-182) ug/dL TIBC (250-450) ug/dL % Saturation (20-50) % Transferrin (180-329) mg/dL Ferritin (23.9-336.2) ng/mL Total Bilirubin (0.2-1.0) mg/dL GGT (8-55) IU/L AST (10-42) IU/L ALT (10-60) IU/L Alkaline Phosphatase (42-121) IU/L Lactate Dehydrogenase (91-225) IU/L Total Protein (6.7-8.2) g/dL Albumin (3.2-5.5) g/dL Globulin (2.1-4.2) g/dL Albumin/Globulin Ratio (1.0-2.2) Lipase (22-51) U/L Vitamin B12 (180-914) pg/mL Urine Opiates Screen (NEGATIVE) Ur Oxycodone Screen (NEGATIVE) Urine Methadone Screen (NEGATIVE) Ur Propoxyphene Screen (NEGATIVE) Ur Barbiturates Screen (NEGATIVE) Ur Tricyclics Screen (NEGATIVE) Ur Phencyclidine Scrn (NEGATIVE) Ur Amphetamine Screen (NEGATIVE) U Methamphetamines Scrn (NEGATIVE) U Benzodiazepines Scrn (NEGATIVE) Urine Cocaine Screen (NEGATIVE) U Cannabinoids Screen (NEGATIVE) Ethyl Alcohol mg/dL Influenza A (Rapid) (Negative) Influenza B (Rapid) (Negative) 11/14/18 11/14/18 11/14/18 Range/Units 16:49 16:49 16:49 WBC (4.8-10.8) x10^3/uL RBC (4.70-6.10) 10^6/uL Hgb (14.0-18.0) g/dL Hct (42.0-52.0) % MCV (80.0-94.0) fL MCH (27.0-31.0) pg MCHC (32.0-36.0) g/dL RDW (12.0-15.0) % Plt Count (130-450) 10^3/uL MPV (7.4-11.4) fL Reticulocyte % (Auto) (0.5-2.3) % Neut # (Auto) (1.5-6.6) 10^3/uL Lymph # (Auto) (1.5-3.5) 10^3/uL Butts # (Auto) (0.0-1.0) 10^3/uL Eos # (Auto) (0.0-0.7) 10^3/uL Baso # (Auto) (0.0-0.1) 10^3/uL Absolute Nucleated RBC x10^3/uL Nucleated RBC % /100WBC Absolute Retic (0.020-0.110) 10^6/uL PT 18.5 H (9.9-12.6) secs INR 1.6 H (0.8-1.2) APTT (24.9-33.3) secs Sodium 128 L (135-145) mmol/L Potassium 3.7 (3.5-5.0) mmol/L Chloride 87 L (101-111) mmol/L Carbon Dioxide 29 (21-32) mmol/L Anion Gap 12.0 (6-13) BUN 13 (6-20) mg/dL Creatinine 0.8 (0.6-1.2) mg/dL Estimated GFR (MDRD) 111 (>89) Glucose 88 (70-100) mg/dL Calcium 9.1 (8.5-10.3) mg/dL Phosphorus (2.5-4.6) mg/dL Magnesium (1.7-2.8) mg/dL Iron (45-182) ug/dL TIBC (250-450) ug/dL % Saturation (20-50) % Transferrin (180-329) mg/dL Ferritin (23.9-336.2) ng/mL Total Bilirubin 6.2 H (0.2-1.0) mg/dL GGT (8-55) IU/L AST 779 H (10-42) IU/L ALT 534 H (10-60) IU/L Alkaline Phosphatase 79 (42-121) IU/L Lactate Dehydrogenase (91-225) IU/L Total Protein 7.1 (6.7-8.2) g/dL Albumin 4.0 (3.2-5.5) g/dL Globulin 3.1 (2.1-4.2) g/dL Albumin/Globulin Ratio 1.3 (1.0-2.2) Lipase 69 H (22-51) U/L Vitamin B12 (180-914) pg/mL Urine Opiates Screen (NEGATIVE) Ur Oxycodone Screen (NEGATIVE) Urine Methadone Screen (NEGATIVE) Ur Propoxyphene Screen (NEGATIVE) Ur Barbiturates Screen (NEGATIVE) Ur Tricyclics Screen (NEGATIVE) Ur Phencyclidine Scrn (NEGATIVE) Ur Amphetamine Screen (NEGATIVE) U Methamphetamines Scrn (NEGATIVE) U Benzodiazepines Scrn (NEGATIVE) Urine Cocaine Screen (NEGATIVE) U Cannabinoids Screen (NEGATIVE) Ethyl Alcohol 177.0 mg/dL Influenza A (Rapid) (Negative) Influenza B (Rapid) (Negative) 11/14/18 11/14/18 Range/Units 16:49 15:38 WBC 3.7 L (4.8-10.8) x10^3/uL RBC 4.48 L (4.70-6.10) 10^6/uL Hgb 16.1 (14.0-18.0) g/dL Hct 46.9 (42.0-52.0) % MCV 104.5 H (80.0-94.0) fL MCH 36.0 H (27.0-31.0) pg MCHC 34.4 (32.0-36.0) g/dL RDW 15.6 H (12.0-15.0) % Plt Count 173 (130-450) 10^3/uL MPV 7.5 (7.4-11.4) fL Reticulocyte % (Auto) (0.5-2.3) % Neut # (Auto) 2.3 (1.5-6.6) 10^3/uL Lymph # (Auto) 1.0 L (1.5-3.5) 10^3/uL Butts # (Auto) 0.4 (0.0-1.0) 10^3/uL Eos # (Auto) 0.0 (0.0-0.7) 10^3/uL Baso # (Auto) 0.0 (0.0-0.1) 10^3/uL Absolute Nucleated RBC 0.00 x10^3/uL Nucleated RBC % 0.1 /100WBC Absolute Retic (0.020-0.110) 10^6/uL PT (9.9-12.6) secs INR (0.8-1.2) APTT (24.9-33.3) secs Sodium (135-145) mmol/L Potassium (3.5-5.0) mmol/L Chloride (101-111) mmol/L Carbon Dioxide (21-32) mmol/L Anion Gap (6-13) BUN (6-20) mg/dL Creatinine (0.6-1.2) mg/dL Estimated GFR (MDRD) (>89) Glucose (70-100) mg/dL Calcium (8.5-10.3) mg/dL Phosphorus (2.5-4.6) mg/dL Magnesium (1.7-2.8) mg/dL Iron (45-182) ug/dL TIBC (250-450) ug/dL % Saturation (20-50) % Transferrin (180-329) mg/dL Ferritin (23.9-336.2) ng/mL Total Bilirubin (0.2-1.0) mg/dL GGT (8-55) IU/L AST (10-42) IU/L ALT (10-60) IU/L Alkaline Phosphatase (42-121) IU/L Lactate Dehydrogenase (91-225) IU/L Total Protein (6.7-8.2) g/dL Albumin (3.2-5.5) g/dL Globulin (2.1-4.2) g/dL Albumin/Globulin Ratio (1.0-2.2) Lipase (22-51) U/L Vitamin B12 (180-914) pg/mL Urine Opiates Screen (NEGATIVE) Ur Oxycodone Screen (NEGATIVE) Urine Methadone Screen (NEGATIVE) Ur Propoxyphene Screen (NEGATIVE) Ur Barbiturates Screen (NEGATIVE) Ur Tricyclics Screen (NEGATIVE) Ur Phencyclidine Scrn (NEGATIVE) Ur Amphetamine Screen (NEGATIVE) U Methamphetamines Scrn (NEGATIVE) U Benzodiazepines Scrn (NEGATIVE) Urine Cocaine Screen (NEGATIVE) U Cannabinoids Screen (NEGATIVE) Ethyl Alcohol mg/dL Influenza A (Rapid) Negative (Negative) Influenza B (Rapid) Negative (Negative) Assessment/Plan - Problem List (1) Alcoholic hepatitis Impression: Mirza alcoholic hepatitis score is 6 points and Meld score 24 on admission. Ammonia level was WNL this morning. LFTs improving. Plan: Ulcer prophylaxis with proton pump inhibitor. Banana bag -- once tolerating oral diet without n/v, will switch to PO thiamine, folate, and MVI Follow up hepatic labs in the morning Qualifiers: Ascites presence: without ascites Qualified Code(s): K70.10 - Alcoholic hepatitis without ascites (2) Hx of seizure disorder Impression: Due to alcohol withdrawal. He may need Keppra for a short duration of time while he is in the hospital. At this time, he has not exhibited any seizure like activity Plan: continue to monitor (3) Alcohol abuse Impression: At this time without ascites. Mild liver failure. He has been strongly encouraged to refrain from drinking and have complete abstinence from alcohol. Plan: add librium for withdrawal CIWA protocol (4) Pancytopenia Impression: Most likely from alcohol toxicity, directly affecting the bone marrow. No evidence of thrombocytopenia. Anemia panel completed. Plan: Obtain folate lever tomorrow CBC tomorrow Qualifiers: Ascites presence: without ascites Qualified Code(s): K70.10 - Alcoholic hepatitis without ascites
[2018-11-15 09:41] LABS: ALBUMIN 3.1 g/dL (3.2-5.5); ALBUMIN/GLOBULIN RATIO 1.4 (1.0-2.2); BILIRUBIN,TOTAL 6.8 mg/dL (0.2-1.0); CALCIUM 8.1 mg/dL (8.5-10.3); CREATININE 0.8 mg/dL (0.6-1.2); TOTAL PROTEIN 5.3 g/dL (6.7-8.2)
[2018-11-15] MEDS: chlordiazePOXIDE 25 MG CAPSULE PO SCH ×3 (12:41→23:45)
[2018-11-15] MEDS: LORazepam 2 MG/ML VIAL IVP PRN ×2 (15:59→20:53)
[2018-11-15] MEDS: SODIUM CHLORIDE FLUSH 0.9% 10 ML SYRINGE IVP PRN (20:53)
[2018-11-15] MEDS: PROCHLORPERAZINE 10 MG/2 ML VIAL IVP PRN (21:02)
[2018-11-16] MEDS: ONDANSETRON ODT 4 MG TABLET TL PRN ×2 (00:08→08:57)
[2018-11-16] MEDS: oxyCODONE 5 MG TABLET PO PRN ×4 (00:09→19:37)
[2018-11-16] MEDS: SODIUM CHLORIDE FLUSH 0.9% 10 ML SYRINGE IVP SCH ×3 (02:06→15:51)
[2018-11-16] MEDS: IBUPROFEN 400 MG TABLET PO PRN (03:09)
[2018-11-16] MEDS: chlordiazePOXIDE 25 MG CAPSULE PO SCH ×3 (06:05→17:34)
[2018-11-16] MEDS: SODIUM CHLORIDE FLUSH 0.9% 10 ML SYRINGE IVP PRN (06:06)
[2018-11-16] MEDS: PANTOPRAZOLE 40 MG VIAL IVP SCH (06:07)
[2018-11-16 06:39] LABS: BASOPHILS % (AUTO) 0.5 %; EOSINOPHILS # (AUTO) 0.1 10^3/uL (0.0-0.7); EOSINOPHILS % (AUTO) 3.1 %; HGB - HEMOGLOBIN 13.3 g/dL (14.0-18.0); LYMPHOCYTES # (AUTO) 1.4 10^3/uL (1.5-3.5); LYMPHOCYTES % (AUTO) 40.8 %; MEAN CORPUSCULAR HEMOGLOBIN 36.3 pg (27.0-31.0); MEAN CORPUSCULAR HGB CONC 34.3 g/dL (32.0-36.0); MEAN CORPUSCULAR VOLUME 105.7 fL (80.0-94.0); MEAN PLATELET VOLUME 8.3 fL (7.4-11.4); MONOCYTES # (AUTO) 0.3 10^3/uL (0.0-1.0); MONOCYTES % (AUTO) 10.4 %; NEUTROPHILS # (AUTO) 1.5 10^3/uL (1.5-6.6); NEUTROPHILS % (AUTO) 45.2 %; PLT - PLATELET COUNT 104 10^3/uL (130-450); RED BLOOD COUNT 3.66 10^6/uL (4.70-6.10); WHITE BLOOD COUNT 3.3 x10^3/uL (4.8-10.8)
[2018-11-16 06:43] LABS: INR 1.4 (0.8-1.2); PT - PROTHROMBIN TIME 15.5 secs (9.9-12.6)
[2018-11-16 06:57] LABS: ALBUMIN 3.1 g/dL (3.2-5.5); ALBUMIN/GLOBULIN RATIO 1.3 (1.0-2.2); BILIRUBIN,TOTAL 5.9 mg/dL (0.2-1.0); CALCIUM 8.3 mg/dL (8.5-10.3); CREATININE 0.7 mg/dL (0.6-1.2); PHOSPHORUS 2.7 mg/dL (2.5-4.6); TOTAL PROTEIN 5.5 g/dL (6.7-8.2)
--- NOTE | 2018-11-16 08:51 | PROVIDER PROGRESS NOTE ---
Subjective - Prog Note Date Prog Note Date: 11/16/18 Prog Note Time: 08:30 - Subjective Subjective: Patient with improved appetite today, ate breakfast Denies nausea. Received ativan yesterday evening for CIWA >8 Does not sleep well at night, reports that is one of the reasons he started to drink when he was younger K 3.2 today, is being repleted Liver enzymes trending down Current Medications - Current Medications Current Medications: Active Medications Chlordiazepoxide HCl (Librium) 25 mg PO Q6HR [facility] Last Admin: 11/16/18 06:05 Dose: 25 mg Multivitamins 10 ml/ Thiamine HCl 100 mg/ Folic Acid 1 mg/Sodium Chloride 1,011.2 mls @ 100 mls/hr IV DAILY [facility] Last Infusion: 11/15/18 20:04 Dose: Infused Ibuprofen (Motrin) 400 mg PO Q4HR PRN PRN Reason: Pain 1 to 4 Last Admin: 11/16/18 03:09 Dose: 400 mg Lorazepam (Ativan Inj (Vial)) 1 mg IVP Q30M PRN; Protocol PRN Reason: CIWA >8 Last Admin: 11/15/18 20:53 Dose: 1 mg Ondansetron HCl (Zofran Inj) 4 mg IVP Q6HR PRN PRN Reason: Nausea / Vomiting Last Admin: 11/15/18 14:56 Dose: 4 mg Ondansetron HCl (Zofran Odt) 4 mg TL Q6HR PRN PRN Reason: Nausea / Vomiting Last Admin: 11/16/18 00:08 Dose: 4 mg Oxycodone HCl (Roxicodone) 5 mg PO Q4HR PRN PRN Reason: Pain 5 to 7 Last Admin: 11/16/18 06:06 Dose: 5 mg Pantoprazole Sodium (Protonix) 40 mg IVP QDAC [facility] Last Admin: 11/16/18 06:07 Dose: 40 mg Polyethylene Glycol (Miralax) 17 gm PO DAILY [facility] Last Admin: 11/15/18 08:56 Dose: Not Given Potassium Chloride (K-Dur) 20 meq PO Q2HR [facility] Stop: 11/16/18 12:01 Prochlorperazine Edisylate (Compazine Inj) 10 mg IVP Q6HR PRN PRN Reason: Nausea / Vomiting Last Admin: 11/15/18 21:02 Dose: 10 mg Sodium Chloride (Normal Saline Flush 0.9%) 10 ml IVP PRN PRN PRN Reason: NEEDED PER PROVIDER ORDERS Last Admin: 11/16/18 06:06 Dose: 10 ml Sodium Chloride (Normal Saline Flush 0.9%) 10 ml IVP 0100,0900,1700 [facility] Last Admin: 11/16/18 02:06 Dose: 10 ml Home Medications: Gabapentin [Neurontin] 800 mg PO QID 01/03/15 tiZANidine [Zanaflex] 4 mg PO BID PRN 06/06/17 Bupropion HCl [Bupropion HCl Sr] 150 mg PO DAILY 11/15/18 LORazepam [Ativan] 0.5 - 1 mg PO QPM PRN 11/15/18 Propranolol HCl 20 mg PO QID PRN 11/15/18 Objective - Vital Signs/Intake & Output Reviewed Vital Signs: Yes Vital Signs: Vital Signs x48h Temp Pulse Resp BP Pulse Ox 11/16/18 08:00 36.6 C 99 16 159/85 H 97 11/16/18 03:03 36.6 C 70 18 129/63 98 Intake & Output: Intake & Output 11/13/18 11/14/18 11/15/18 11/16/18 23:59 23:59 23:59 23:59 Intake Total 1000 5041.2 Output Total 1450 1000 Balance 1000 3591.2 -1000 - Objective General Appearance: positive: No acute distress, Alert Eyes Bilateral: positive: Normal inspection, PERRL ENT: positive: ENT inspection nml, Pharynx nml, No signs of dehydration Neck: positive: Nml inspection, Trachea midline Respiratory: positive: Chest non-tender, No respiratory distress, Breath sounds nml. negative: Wheezes, Rales, Rhonchi Cardiovascular: positive: Regular rate & rhythm, No murmur, No gallop Peripheral Pulses: 2+ Dorsalis pedis (R), 2+ Dorsalis pedis (L) Abdomen: positive: Non-tender, Nml bowel sounds, No distention, Hepatomegaly Skin: positive: Warm, Dry Extremities: positive: Non-tender, Full ROM Neurologic/Psychiatric: positive: Oriented x3, CN's nml (2-12), Motor nml, Sensation nml, Mood/affect nml - Lab Results Fish Bones: 11/16/18 06:06 11/16/18 06:06 Other Labs: Lab Results x24hrs 11/16/18 11/16/18 11/16/18 Range/Units 06:06 06:06 06:06 WBC 3.3 L (4.8-10.8) x10^3/uL RBC 3.66 L (4.70-6.10) 10^6/uL Hgb 13.3 L (14.0-18.0) g/dL Hct 38.7 L (42.0-52.0) % MCV 105.7 H (80.0-94.0) fL MCH 36.3 H (27.0-31.0) pg MCHC 34.3 (32.0-36.0) g/dL RDW 16.0 H (12.0-15.0) % Plt Count 104 L (130-450) 10^3/uL MPV 8.3 (7.4-11.4) fL Neut # (Auto) 1.5 (1.5-6.6) 10^3/uL Lymph # (Auto) 1.4 L (1.5-3.5) 10^3/uL [place] # (Auto) 0.3 (0.0-1.0) 10^3/uL Eos # (Auto) 0.1 (0.0-0.7) 10^3/uL Baso # (Auto) 0.0 (0.0-0.1) 10^3/uL Absolute Nucleated RBC 0.00 x10^3/uL Nucleated RBC % 0.0 /100WBC PT (9.9-12.6) secs INR (0.8-1.2) Sodium 134 L (135-145) mmol/L Potassium 3.2 L (3.5-5.0) mmol/L Chloride 102 (101-111) mmol/L Carbon Dioxide 27 (21-32) mmol/L Anion Gap 5.0 L (6-13) BUN 6 (6-20) mg/dL Creatinine 0.7 (0.6-1.2) mg/dL Estimated GFR (MDRD) 129 (>89) Glucose 94 (70-100) mg/dL Calcium 8.3 L (8.5-10.3) mg/dL Phosphorus 2.7 (2.5-4.6) mg/dL Magnesium 2.0 (1.7-2.8) mg/dL Total Bilirubin 5.9 H (0.2-1.0) mg/dL GGT 1075 H (8-55) IU/L AST 327 H (10-42) IU/L ALT 267 H (10-60) IU/L Alkaline Phosphatase 70 (42-121) IU/L Ammonia (7-35) umol/L Total Protein 5.5 L (6.7-8.2) g/dL Albumin 3.1 L (3.2-5.5) g/dL Globulin 2.4 (2.1-4.2) g/dL Albumin/Globulin Ratio 1.3 (1.0-2.2) Folate 10.05 (5.90 - >24.8) ng/mL 11/16/18 11/15/18 11/15/18 Range/Units 06:06 09:15 09:15 WBC (4.8-10.8) x10^3/uL RBC (4.70-6.10) 10^6/uL Hgb (14.0-18.0) g/dL Hct (42.0-52.0) % MCV (80.0-94.0) fL MCH (27.0-31.0) pg MCHC (32.0-36.0) g/dL RDW (12.0-15.0) % Plt Count (130-450) 10^3/uL MPV (7.4-11.4) fL Neut # (Auto) (1.5-6.6) 10^3/uL Lymph # (Auto) (1.5-3.5) 10^3/uL [place] # (Auto) (0.0-1.0) 10^3/uL Eos # (Auto) (0.0-0.7) 10^3/uL Baso # (Auto) (0.0-0.1) 10^3/uL Absolute Nucleated RBC x10^3/uL Nucleated RBC % /100WBC PT 15.5 H (9.9-12.6) secs INR 1.4 H (0.8-1.2) Sodium 134 L (135-145) mmol/L Potassium 3.8 (3.5-5.0) mmol/L Chloride 98 L (101-111) mmol/L Carbon Dioxide 27 (21-32) mmol/L Anion Gap 9.0 (6-13) BUN 8 (6-20) mg/dL Creatinine 0.8 (0.6-1.2) mg/dL Estimated GFR (MDRD) 111 (>89) Glucose 88 (70-100) mg/dL Calcium 8.1 L (8.5-10.3) mg/dL Phosphorus (2.5-4.6) mg/dL Magnesium (1.7-2.8) mg/dL Total Bilirubin 6.8 H (0.2-1.0) mg/dL GGT (8-55) IU/L AST 459 H (10-42) IU/L ALT 333 H (10-60) IU/L Alkaline Phosphatase 58 (42-121) IU/L Ammonia 27.1 (7-35) umol/L Total Protein 5.3 L (6.7-8.2) g/dL Albumin 3.1 L (3.2-5.5) g/dL Globulin 2.2 (2.1-4.2) g/dL Albumin/Globulin Ratio 1.4 (1.0-2.2) Folate (5.90 - >24.8) ng/mL Assessment/Plan - Problem List (1) Alcoholic hepatitis Impression: [place] alcoholic hepatitis score 6 points and Meld score 24 on admission. Ammonia level was WNL 2/8. LFTs improving -- AST 327 and ALT 267 today. He is tolerating a regular diet Plan: Ulcer prophylaxis with proton pump inhibitor. change banana Banana bag to PO thiamine, folate, and MVI daily acute hepatitis labs anticipate if patient continues to improve, he will be able to discharge [facility] with close follow-up outpatient. Qualifiers: Ascites presence: without ascites Qualified Code(s): K70.10 - Alcoholic hepatitis without ascites (2) Hx of seizure disorder Impression: Due to alcohol withdrawal. At this time, he has not exhibited any seizure like activity Plan: continue to monitor (3) Alcohol abuse Impression: At this time without ascites. Mild liver failure. He has been strongly encouraged to refrain from drinking and have complete abstinence from alcohol. Plan: add librium for withdrawal -- will plan to discharge patient with librium taper. CIWA protocol (4) Pancytopenia Impression: Most likely from alcohol toxicity, directly affecting the bone marrow. Platelets decreased to 104 today. Anemia panel completed. Plan: monitor for bleeding daily CBCs Qualifiers: Ascites presence: without ascites Qualified Code(s): K70.10 - Alcoholic h epatitis without ascites
[2018-11-16] MEDS: POTASSIUM CHLORIDE 20 MEQ TABLET PO SCH ×3 (08:57→12:10)
[2018-11-16] MEDS: POLYETHYLENE GLYCOL 3350 17 GM PACKET PO SCH (08:58)
[2018-11-16] MEDS: FOLIC ACID 1 MG TABLET PO SCH (09:05)
[2018-11-16] MEDS: THIAMINE 100 MG TABLET PO SCH (09:05)
[2018-11-16 13:28] LABS: HEPATITIS A IGM NON-REACTIVE (NON-REACTIVE); HEPATITIS B CORE ANTIBODY IGM NON-REACTIVE (NON-REACTIVE); HEPATITIS B SURFACE ANTIGEN NON-REACTIVE (NON-REACTIVE); HEPATITIS C ANTIBODY NON-REACTIVE (NON-REACTIVE)
[2018-11-16] MEDS: PROCHLORPERAZINE 10 MG/2 ML VIAL IVP PRN ×2 (15:51→21:09)
[2018-11-16] MEDS: LORazepam 2 MG/ML VIAL IVP PRN ×2 (15:52→21:05)
[2018-11-17] MEDS: chlordiazePOXIDE 25 MG CAPSULE PO SCH ×2 (00:09→06:40)
[2018-11-17] MEDS: oxyCODONE 5 MG TABLET PO PRN ×2 (00:09→06:41)
[2018-11-17] MEDS: ONDANSETRON ODT 4 MG TABLET TL PRN ×2 (00:09→08:33)
[2018-11-17] MEDS: SODIUM CHLORIDE FLUSH 0.9% 10 ML SYRINGE IVP SCH ×2 (00:09→08:35)
[2018-11-17 06:15] LABS: BASOPHILS % (AUTO) 0.7 %; EOSINOPHILS # (AUTO) 0.1 10^3/uL (0.0-0.7); HGB - HEMOGLOBIN 13.2 g/dL (14.0-18.0); LYMPHOCYTES # (AUTO) 1.6 10^3/uL (1.5-3.5); LYMPHOCYTES % (AUTO) 42.8 %; MEAN CORPUSCULAR HEMOGLOBIN 36.4 pg (27.0-31.0); MEAN CORPUSCULAR VOLUME 107.2 fL (80.0-94.0); MEAN PLATELET VOLUME 8.2 fL (7.4-11.4); MONOCYTES # (AUTO) 0.3 10^3/uL (0.0-1.0); MONOCYTES % (AUTO) 7.8 %; NEUTROPHILS # (AUTO) 1.7 10^3/uL (1.5-6.6); NEUTROPHILS % (AUTO) 45.7 %; PLT - PLATELET COUNT 85 10^3/uL (130-450); RED BLOOD COUNT 3.63 10^6/uL (4.70-6.10); WHITE BLOOD COUNT 3.7 x10^3/uL (4.8-10.8)
[2018-11-17 06:26] LABS: INR 1.1 (0.8-1.2); PT - PROTHROMBIN TIME 12.2 secs (9.9-12.6)
[2018-11-17 06:33] LABS: ALBUMIN 3.1 g/dL (3.2-5.5); ALBUMIN/GLOBULIN RATIO 1.1 (1.0-2.2); BILIRUBIN,TOTAL 3.5 mg/dL (0.2-1.0); CALCIUM 8.9 mg/dL (8.5-10.3); CREATININE 0.8 mg/dL (0.6-1.2); MAGNESIUM 1.7 mg/dL (1.7-2.8); PHOSPHORUS 3.8 mg/dL (2.5-4.6); TOTAL PROTEIN 5.8 g/dL (6.7-8.2)
[2018-11-17] MEDS ORDERED: PANTOPRAZOLE 40 MG TABLET PO SCH (07:00)
[2018-11-17] MEDS ORDERED: MULTIVITAMIN TABLET PO SCH (08:00)
[2018-11-17] MEDS: FOLIC ACID 1 MG TABLET PO SCH (08:34)
[2018-11-17] MEDS: THIAMINE 100 MG TABLET PO SCH (08:34)
[2018-11-17] MEDS: POLYETHYLENE GLYCOL 3350 17 GM PACKET PO SCH (08:35)
--- NOTE | 2018-11-17 10:08 | CT Report ---
Reason: abd pain Procedure Date: 11/17/2018 Accession Number: [id number] / [id number] Procedure: CT - KUB CPT Code: FULL RESULT: EXAM: CT ABDOMEN AND PELVIS (CT KUB) EXAM DATE: 11/17/2018 08:26 AM. CLINICAL HISTORY: Generalized abdominal pain. COMPARISONS: Abdomen limited 11/14/2018 7:20 PM. TECHNIQUE: Routine axial helical CT imaging was performed through the abdomen and pelvis without IV contrast. Reconstructions: Coronal and sagittal. In accordance with CT protocol optimization, one or more of the following dose reduction techniques were utilized for this exam: automated exposure control, adjustment of mA and/or KV based on patient size, or use of iterative reconstructive technique. FINDINGS: Lung Bases: Unremarkable. Right Kidney/Ureter: No stones, hydronephrosis, or hydroureter. No perinephric fat stranding. Left Kidney/Ureter: No stones, hydronephrosis, or hydroureter. No perinephric fat stranding. Other Solid Organs: Unenhanced images of the liver, spleen, adrenals and pancreas are unremarkable. Gallbladder/Bile Ducts: Mildly contracted gallbladder. Peritoneal Cavity: Stomach is nondistended. No small bowel obstruction. Small fatty umbilical hernia. Normal appendix. Moderate volume of stool in the colon. No diverticulitis. No free air. No enlarged retroperitoneal or mesenteric lymph nodes. Pelvic Organs: No bladder calculi. Urinary bladder is minimally distended. Prostate gland and seminal vesicles are unremarkable. No pelvic adenopathy. No pelvic free fluid. Vasculature: Unremarkable. Other: No acute osseous abnormalities are identified. IMPRESSION: 1. Normal appendix. 2. No nephrolithiasis. No hydronephrosis. No bladder calculi. 3. No bowel obstruction. No diverticulitis. Moderate volume of stool in the colon. 4. Mildly contracted gallbladder on these unenhanced images. [facility]
--- NOTE | 2018-11-17 11:17 | Discharge Plan ---
Discharge Plan Disposition: Home, Self Care Condition: Good Prescriptions: chlordiazePOXIDE [Librium] See Taper PO Q6HR 3 Days capsule Ibuprofen 400 mg PO Q6HR #25 tablet Ondansetron Odt [Zofran Odt] 4 mg TL Q6HR PRN #10 tablet PRN Reason: Nausea / Vomiting Thiamine [Vitamin B-1] 100 mg PO DAILY #30 tablet Diet: Regular Activity Restrictions: No Restrictions Shower Restrictions: No Driving Restrictions: No Weight Bearing: Full Weight Additional Instructions or Follow Up instructions: You were admitted for complications related to alcohol abuse. Your liver enzymes (indicating injury to your liver) were quite elevated on admission. They improved before discharge, but still remain elevated. You were treated for your alcohol withdrawal and sent home on a taper of librium. It is strongly advised that you stay away from alcohol, given the severity of injury to your liver on admission. The social science instructor has given you outpatient resources for your alcohol abuse. Please follow-up a [facility] with the first available provider to monitor how your liver is healing. No Smoking: If you smoke, Please STOP! Call for help.
--- NOTE | 2018-11-17 11:17 | DISCHARGE SUMMARY ---
"Discharge Summary Admit Date: 11/14/18 Discharge Date: 11/17/18 Discharging Provider: Tara Klein [facility] Primary Care Provider: Previously saw Dr. Manuel Palmer at [facility] Code Status: Attempt Resuscitation Condition at Discharge: Good Discharge Disposition: 01 Home, Self Care - DIAGNOSES Admission Diagnoses: Acute hepatitis H/o seizure disorder Alcohol abuse Pancytopenia Discharge Diagnoses with Status of Each Condition: (1) Alcoholic hepatitis, improved (2) Hx of seizure disorder, stable (3) Alcohol abuse, stable (4) Pancytopenia, ongoing - HPI History of Present Illness: As Per Dr. Thomas's H&P dated 11/14/2018: 'This is an unfortunate 33-year-old white male who is a very poor historian but this is currently intoxicated. He has a history of alcohol abuse, and has previous withdrawal seizures. He has been hospitalized 2-3 times in our hospital because of this. He is also been seen in the emergency room for multiple encounters. He presented himself to the emergency room today because of nausea, vomiting, diarrhea for the last 3 days. He drinks approximately 12 hard cider drinks a day. He has diffuse crampy abdominal pain, no blood in his stool. Unable to keep anything down except the alcohol for the last 3 days. He was evaluated in the emergency room by Dr. Mayer. Afebrile, tachycardic at 114, with a blood pressure of 145/88 and an oxygen saturation of 99. He is alert and oriented. He is a soft, nondistended abdomen. But he is tender over the right upper quadrant. No peritoneal signs. He has mild jaundice. His white cell count is low at 3.7, hemoglobin is 16.1. Platelets 173. His INR is 1.6. Sodium 128. BUN 13, creatinine 0.8, total bili 6.2, AST 779, ALT 534, lipase 69. Ethyl alcohol level is 177. Because of his acute alcoholic hepatitis, that is quite severe, Dr. Mayer attempted transfer to an outside facility. Especially for a higher level of care. Currently there are no beds at [facility]. [facility] in [place] did agree to take the patient only if he decompensated enough to need ICU care.' - CONSULTS | PROCEDURES Consultations: None - HOSPITAL COURSE Hospital Course: Hemal was admitted to the hospital for acute alcoholic hepatitis. Mirza alcoholic hepatitis score 6 points and Meld score 24 on admission. Ammonia level was WNL 2/8. His AST/ALT on admission were 779/534, respectively. His AST improved to 204 and ALT to 214 on the day of discharge. He was given a banana bag and once he was able to tolerate a regular diet, this was changed to oral folate/thiamine/MVI. He carries a h/o seizure disorder with previous alcohol withdrawal episodes, but did not exhibit any seizure like activity during his hospitalization. He was placed on the CIWA protocol during his hospitalization. Librium was added and he was discharged with a librium taper over 3 days. He was pancytopenic during hospitalization. There was no evidence of bleeding. He was strongly encouraged to refrain from drinking and have complete abstinence from alcohol. LABOR GANG SUPERVISOR was consulted and gave him information for outpatient resources. He was instructed to have close follow-up with a primary care provider. He states that he previously saw providers at [facility], but has not sought care in some time due to his providers leaving. He was asked to see one of the providers in the office within 7-10 days to establish care and ensure that his liver continues to improve. - ALLERGIES Allergies/Adverse Reactions: Allergies Allergy/AdvReac Type Severity Reaction Status Date / Time No Known Drug Allergies Allergy Verified 06/06/17 21:06 - MEDICATIONS Home Medications: Ambulatory Orders Medication Instructions Recorded Confirmed Gabapentin [Neurontin] 800 mg PO QID 01/03/15 11/15/18 tiZANidine [Zanaflex] 4 mg PO BID PRN 06/06/17 11/15/18 Bupropion HCl [Bupropion HCl Sr] 150 mg PO DAILY 11/15/18 11/15/18 LORazepam [Ativan] 0.5 - 1 mg PO QPM PRN 11/15/18 11/15/18 Propranolol HCl 20 mg PO QID PRN 11/15/18 11/15/18 Ibuprofen 400 mg PO Q6HR #25 tablet 11/17/18 Ibuprofen [Motrin] 400 mg PO Q4HR PRN tablet 11/17/18 Ondansetron Odt [Zofran Odt] 4 mg TL Q6HR PRN #10 tablet 11/17/18 Thiamine [Vitamin B-1] 100 mg PO DAILY #30 tablet 11/17/18 chlordiazePOXIDE [Librium] See Taper PO Q6HR 3 Days capsule 11/17/18 - PHYSICAL EXAM AT DISCHARGE General Appearance: positive: No acute distress, Alert Eyes Bilateral: positive: Normal inspection, PERRL, EOMI ENT: positive: ENT inspection nml, Pharynx nml, No signs of dehydration Neck: positive: Nml inspection, No JVD Respiratory: positive: Chest non-tender, No respiratory distress, Breath sounds nml. negative: Wheezes, Rales, Rhonchi Cardiovascular: positive: Regular rate & rhythm. negative: Tachycardia Peripheral Pulses: positive: 2+ Abdomen: positive: Non-tender, Nml bowel sounds, No distention, Hepatomegaly. negative: Guarding, Rebound Skin: positive: Warm, Dry Extremities: positive: Non-tender, Full ROM Neurologic/Psychiatric: positive: Oriented x3, CN's nml (2-12), Motor nml, Sensation nml, Mood/affect nml, Other (No tremors.) - LABS Result Diagrams: 11/17/18 06:00 11/17/18 06:00 - DIAGNOSTIC IMAGING Diagnostic Imaging Results: Final report reviewed Diagnostic Imaging Results Comments: Abdominal u/s 11/14/2018 -- large fatty liver, mild irregular gallbladder wall thickening, with no gallstones of dilated ducts CT scan w/o contrast 11/17/2018 -- Negative except for moderate volume of stool in the colon - FOLLOW UP Follow Up: Follow-up with provider at [facility] within 7-10 days to follow up on liver enzymes and platelets. - TIME SPENT Time Spent in Discharge (Minutes): 45"
[2018-11-17 12:06] VITALS: BP 132/82
[2018-11-18 13:46] LABS: HEPATITIS B SURFACE ANTIGEN NON-REACTIVE (NON-REACTIVE); HEPATITIS C ANTIBODY NON-REACTIVE (NON-REACTIVE)
== END 2018-11-17 12:20 | disposition home or self-care (01) | DRG 433 ==
LOC: ED 14:53 → MS2 11-15 00:01
PROVIDERS: ADMIT Specialist; ATTEND Nurse Practitioner
DX: K70.10 Alcoholic hepatitis without ascites (principal); D61.818 Other pancytopenia; F10.239 Alcohol dependence with withdrawal, unspecified; F10.229 Alcohol dependence with intoxication, unspecified; Y90.6 Blood alcohol level of 120-199 mg/100 ml; K21.9 Gastro-esophageal reflux disease without esophagitis; K52.9 Noninfective gastroenteritis and colitis, unspecified; Z87.891 Personal history of nicotine dependence; G40.909 Epilepsy, unspecified, not intractable, without status epilepticus; R11.2 Nausea with vomiting, unspecified
CPT/HCPCS: 36415; 74176; 76705; 80053; 80074; 80306; 80320; 82140; 82607; 82728; 82746; 82977; 83540; 83615; 83690; 83735; 84100; 84132; 84466; 85025; 85044; 85610; 85730; 86317; 86704; 86709; 86803; 87275; 87276; 87340; 96361; 96374; 96375; 96376; 99284; 99285

== ENCOUNTER 2018-11-28 13:01 | Outpatient (CLI) | payer MEDICAID ==
[2018-11-28 18:16] LABS: BASOPHILS # (AUTO) 0.1 10^3/uL (0.0-0.1); BASOPHILS % (AUTO) 1.3 %; EOSINOPHILS # (AUTO) 0.1 10^3/uL (0.0-0.7); EOSINOPHILS % (AUTO) 1.1 %; HGB - HEMOGLOBIN 13.1 g/dL (14.0-18.0); LYMPHOCYTES # (AUTO) 1.9 10^3/uL (1.5-3.5); LYMPHOCYTES % (AUTO) 32.2 %; MEAN CORPUSCULAR HEMOGLOBIN 38.5 pg (27.0-31.0); MEAN CORPUSCULAR HGB CONC 36.1 g/dL (32.0-36.0); MEAN CORPUSCULAR VOLUME 106.4 fL (80.0-94.0); MEAN PLATELET VOLUME 7.4 fL (7.4-11.4); MONOCYTES # (AUTO) 0.6 10^3/uL (0.0-1.0); MONOCYTES % (AUTO) 9.6 %; NEUTROPHILS # (AUTO) 3.2 10^3/uL (1.5-6.6); NEUTROPHILS % (AUTO) 55.8 %; PLT - PLATELET COUNT 264 10^3/uL (130-450); RED CELL DISTRIBUTION WIDTH 14.5 % (12.0-15.0); WHITE BLOOD COUNT 5.8 x10^3/uL (4.8-10.8)
[2018-11-28 18:17] LABS: ALBUMIN 4.3 g/dL (3.2-5.5); ALBUMIN/GLOBULIN RATIO 1.3 (1.0-2.2); BILIRUBIN,TOTAL 1.1 mg/dL (0.2-1.0); CALCIUM 9.6 mg/dL (8.5-10.3); TOTAL PROTEIN 7.5 g/dL (6.7-8.2)
== END 2018-11-28 13:02 | disposition home or self-care (01) ==
LOC: LAB.F 13:01
PROVIDERS: ATTEND Nurse Practitioner Family
DX: K85.90 Acute pancreatitis without necrosis or infection, unspecified (principal)
CPT/HCPCS: 36415; 80053; 82150; 83690; 85025

== ENCOUNTER 2019-06-17 11:49 | Outpatient (CLI) | payer MEDICAID ==
--- NOTE | 2019-06-17 15:40 | XRAY Report ---
Reason: BRONCHITIS J40 Procedure Date: 06/17/2019 Accession Number: [id number] / [id number] Procedure: XRS - Chest 2 View X-Ray CPT Code: 44281 FULL RESULT: EXAM: CHEST RADIOGRAPHY EXAM DATE: 06/17/2019 11:59 AM. CLINICAL HISTORY: Chronic cough COMPARISON: CHEST 2 VIEW PA/LAT 09/11/2015 8:21 PM. TECHNIQUE: 2 views. FINDINGS: Lungs/Pleura: No focal opacities evident. No pleural effusion. No pneumothorax. Normal volumes. Mediastinum: Heart and mediastinal contours are unremarkable. Other: Negative bony structures. IMPRESSION: Normal 2-view chest radiography. RADIA
== END 2019-06-17 11:50 | disposition home or self-care (01) ==
LOC: DI.S 11:49
PROVIDERS: ATTEND Family Medicine
DX: J40 Bronchitis, not specified as acute or chronic (principal)
CPT/HCPCS: 71046

== ENCOUNTER 2019-06-22 13:20 | Outpatient (CLI) | payer MEDICAID | END 2019-06-22 13:21 | disposition short-term general hospital (02) | LOC: EMS 13:20 | PROVIDERS: ATTEND Surgery | DX: R07.9 Chest pain, unspecified (principal); R05 Cough | CPT/HCPCS: A0425; A0427; A0999 ==

== ENCOUNTER 2019-10-30 13:51 | Outpatient (CLI) | payer MEDICAID ==
[2019-10-30 18:44] LABS: BASOPHILS % (AUTO) 0.9 %; EOSINOPHILS % (AUTO) 1.2 %; HGB - HEMOGLOBIN 15.4 g/dL (14.0-18.0); LYMPHOCYTES # (AUTO) 1.5 10^3/uL (1.5-3.5); MEAN CORPUSCULAR HEMOGLOBIN 36.5 pg (27.0-31.0); MEAN CORPUSCULAR HGB CONC 35.6 g/dL (32.0-36.0); MEAN CORPUSCULAR VOLUME 102.6 fL (80.0-94.0); MEAN PLATELET VOLUME 9.4 fL (7.4-11.4); MONOCYTES # (AUTO) 0.3 10^3/uL (0.0-1.0); MONOCYTES % (AUTO) 7.4 %; NEUTROPHILS # (AUTO) 1.5 10^3/uL (1.5-6.6); NEUTROPHILS % (AUTO) 45.5 %; PLT - PLATELET COUNT 159 10^3/uL (130-450); RED BLOOD COUNT 4.22 10^6/uL (4.70-6.10); RED CELL DISTRIBUTION WIDTH 12.1 % (12.0-15.0); WHITE BLOOD COUNT 3.4 x10^3/uL (4.8-10.8)
[2019-10-30 19:02] LABS: ALBUMIN 4.3 g/dL (3.2-5.5); ALBUMIN/GLOBULIN RATIO 1.7 (1.0-2.2); BILIRUBIN,TOTAL 0.8 mg/dL (0.2-1.0); CREATININE 0.9 mg/dL (0.6-1.2); TOTAL PROTEIN 6.9 g/dL (6.7-8.2)
[2019-10-30 19:32] LABS: CRP - C-REACTIVE PROTEIN 2.2 mg/dL (0-1.0)
== END 2019-10-30 13:52 | disposition home or self-care (01) ==
LOC: LAB.S 13:51
PROVIDERS: ATTEND Family Medicine
DX: R19.7 Diarrhea, unspecified (principal); R10.9 Unspecified abdominal pain; R61 Generalized hyperhidrosis
CPT/HCPCS: 36415; 80053; 81599; 82150; 82784; 83516; 83690; 85025; 85651; 86140; 86480

== ENCOUNTER 2019-12-06 22:48 | Emergency (ER) | payer MEDICAID ==
--- NOTE | 2019-12-06 23:27 | XRAY Report ---
Reason: fall/trauma/pain Procedure Date: 12/06/2019 Accession Number: [id number] / [id number] Procedure: XR - Ankle 3 View LT CPT Code: Final Report FULL RESULT: EXAM: LEFT ANKLE RADIOGRAPHY EXAM DATE: 12/06/2019 11:22 PM. CLINICAL HISTORY: Fall/trauma/pain. COMPARISON: ANKLE 3 VIEW LT 10/06/2015 5:07 PM. TECHNIQUE: 3 views. FINDINGS: Bones: Normal. No fractures or bone lesions. Joints: Normal. No effusion. No subluxations. The ankle mortise is normally aligned. Soft Tissues: Unremarkable. IMPRESSION: Normal ankle radiography. RADIA
--- NOTE | 2019-12-06 23:39 | ED Physician Documentation ---
PD HPI LOWER EXT INJURY - Stated complaint Stated Complaint: LT ANKLE PX/FALL OFF LADDER - Chief complaint Chief Complaint: Ext Problem - History obtained from History obtained from: Patient - Additional information Additional information: Patient comes emergency department complaining of left ankle pain and swelling for the past week after stepping off a ladder and rolling his ankle. Patient states at that time, he felt a "pop" in the area of his ankle, but he does not remember exactly where. He states that he is noticed lateral ankle pain and that that is also where the swelling has been. He states has been limping around on the ankle for the last week, but that it keeps hurting and he was concerned that something more by be wrong. Patient denies any history of prior injury to this ankle that he can remember, though he states that he probably injured it at some point. He denies any other injuries to any of part of his body during the incident. No other complaints at this time. Review of Systems Ten Systems: 10 systems reviewed and negative Constitutional: reports: Reviewed and negative Eyes: reports: Reviewed and negative Ears: reports: Reviewed and negative Nose: reports: Reviewed and negative Throat: reports: Reviewed and negative Cardiac: reports: Reviewed and negative Respiratory: reports: Reviewed and negative GI: reports: Reviewed and negative : reports: Reviewed and negative Skin: reports: Reviewed and negative Musculoskeletal: reports: Joint pain, Pain with weight bearing Neurologic: reports: Reviewed and negative Psychiatric: reports: Reviewed and negative Endocrine: reports: Reviewed and negative Immunocompromised: reports: Reviewed and negative PD PAST MEDICAL HISTORY - Past Medical History Past Medical History: Yes Cardiovascular: None Respiratory: None Neuro: Seizure disorder Endocrine/Autoimmune: None GI: GERD, Chronic diarrhea : None HEENT: None Psych: None Musculoskeletal: None Derm: None Other Past Medical History: Trigeminal Neuralgia - Past Surgical History Past Surgical History: Yes General: Colonoscopy HEENT: Tonsil/Adenoidectomy - Present Medications Home Medications: Ambulatory Orders Medication Instructions Recorded Confirmed Gabapentin [Neurontin] 800 mg PO QID 01/03/15 11/15/18 tiZANidine [Zanaflex] 4 mg PO BID PRN 06/06/17 11/15/18 LORazepam [Ativan] 0.5 - 1 mg PO QPM PRN 11/15/18 11/15/18 Propranolol HCl 20 mg PO QID PRN 11/15/18 11/15/18 buPROPion HCL [Bupropion HCl Sr] 150 mg PO DAILY 11/15/18 11/15/18 Ibuprofen 400 mg PO Q6HR #25 tablet 11/17/18 Ibuprofen [Motrin] 400 mg PO Q4HR PRN tablet 11/17/18 Ondansetron Odt [Zofran Odt] 4 mg TL Q6HR PRN #10 tablet 11/17/18 Thiamine [Vitamin B-1] 100 mg PO DAILY #30 tablet 11/17/18 chlordiazePOXIDE [Librium] See Taper PO Q6HR 3 Days capsule 11/17/18 - Allergies Allergies/Adverse Reactions: Allergies Allergy/AdvReac Type Severity Reaction Status Date / Time No Known Drug Allergies Allergy Verified 12/06/19 22:59 - Social History Does the pt smoke?: No Smoking Status: Never smoker Does the pt drink ETOH?: No Does the pt have substance abuse?: No - Immunizations Immunizations are current?: Yes Immunizations: TDAP current <10years - POLST Patient has POLST: No POLST Status: Full Code PD ED PE NORMAL - Vitals Vital signs reviewed: Yes - General General: Alert and oriented X 3, No acute distress - HEENT HEENT: Atraumatic, PERRL, EOMI - Neck Neck: Supple, no meningeal sign - Cardiac Cardiac: Strong equal pulses - Respiratory Respiratory: No respiratory distress - Derm Derm: Normal color, Warm and dry, No rash - Extremities Extremities: No deformity, Other (Patient has mild left ankle edema laterally, with faint contusion. He has moderate tenderness palpation over the talofibular ligament area on the left, and mildly limited range of motion, secondary to pain.No bony deformity is noted. No point tenderness of any of the bony structures of the patient's ankle) - Neuro Neuro: Alert and oriented X 3 - Psych Psych: Normal mood, Normal affect Results - Vitals Vitals: Vital Signs - 24 hr 12/06/19 12/07/19 22:59 00:05 Temperature 36.6 C 36.5 C Heart Rate 82 68 Respiratory 16 16 Rate Blood Pressure 144/94 H 136/78 H O2 Saturation 93 100 Oxygen O2 Source Room air - Rads (name of study) Left ankle x-ray Radiology: Final report received, Discussed with rads, EMP read indepedently (Final radiologist impression: Normal ankle radiography.), See rad report PD MEDICAL DECISION MAKING - ED course Complexity details: reviewed old records, reviewed results, considered differential, d/w patient ED course: Patient was worked up with x-ray series of his left ankle, which was found to be negative. He was placed in a Velcro air splint, and we have discussed home management of his symptoms. He may weight-bear as tolerated. There is no evidence of dislocation or fracture on x-ray. We discussed potential need for follow-up, as well as the usual indications for return. Departure - Departure Disposition: 01 Home, Self Care Clinical Impression: Ankle sprain Condition: Fair Instructions: ED Sprain Ankle W X Ray Comments: Your x-ray looks good, and was read by the radiologist as negative. There is no evidence of fracture or dislocation. Most likely, you have sprained your ankle, which would be expected for the sort of injury you are reporting. You may use the air splint for support as long as you need. You may bear weight as tolerated. Please use ice, elevation, ibuprofen, and Tylenol to help with symptoms. Please follow-up with your primary care physician if you are not feeling better in the next couple of weeks. Please avoid any activities that involve strenuous or twisting motion of your ankle. Discharge Date/Time: 12/07/19 00:10
[2019-12-07 00:23] VITALS: BP 136/78
== END 2019-12-07 00:10 | disposition home or self-care (01) ==
LOC: ED 22:48
DX: S93.402A Sprain of unspecified ligament of left ankle, initial encounter (principal); X50.1XXA Overexertion from prolonged static or awkward postures, initial encounter; Y93.89 Activity, other specified
CPT/HCPCS: 99283; 99284

== ENCOUNTER 2019-12-30 11:51 | Outpatient (CLI) | payer MEDICAID | END 2019-12-30 11:52 | disposition critical access hospital (66) | LOC: EMS 11:51 | PROVIDERS: ATTEND Surgery | DX: S09.90XA Unspecified injury of head, initial encounter (principal); W19.XXXA Unspecified fall, initial encounter; Z72.89 Other problems related to lifestyle | CPT/HCPCS: A0425; A0429; A0999 ==

== ENCOUNTER 2019-12-30 12:16 | Emergency (ER) | payer MEDICAID ==
[2019-12-30] MEDS ORDERED: SODIUM CHLORIDE 0.9% 1,000 ML IV ONE (12:45)
[2019-12-30] MEDS ORDERED: ONDANSETRON 4 MG/2 ML VIAL IVP STA (12:48)
[2019-12-30 12:53] LABS: EOSINOPHILS # (AUTO) 0.1 10^3/uL (0.0-0.7); LYMPHOCYTES % (AUTO) 34.1 %; MEAN CORPUSCULAR HGB CONC 34.9 g/dL (32.0-36.0); MEAN CORPUSCULAR VOLUME 106.1 fL (80.0-94.0); MEAN PLATELET VOLUME 10.6 fL (7.4-11.4); MONOCYTES # (AUTO) 0.2 10^3/uL (0.0-1.0); MONOCYTES % (AUTO) 6.3 %; NEUTROPHILS # (AUTO) 1.7 10^3/uL (1.5-6.6); NEUTROPHILS % (AUTO) 55.3 %; PLT - PLATELET COUNT 55 10^3/uL (130-450); RED BLOOD COUNT 3.78 10^6/uL (4.70-6.10); RED CELL DISTRIBUTION WIDTH 11.6 % (12.0-15.0)
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
[2019-12-30 12:59] LABS: MUDS CUTOFF CONCENTRATIONS CUTOFF CONC BELOW:
[2019-12-30 13:01] LABS: BILIRUBIN,URINE NEGATIVE (NEGATIVE); GLUCOSE, URINE (UA) NEGATIVE (NEGATIVE); KETONES,URINE (UA) NEGATIVE (NEGATIVE); LEUKOCYTE ESTERASE, URINE NEGATIVE (NEGATIVE); NITRITE,URINE NEGATIVE (NEGATIVE); OCCULT BLOOD,URINE NEGATIVE (NEGATIVE); PH,URINE 6.5 PH (5.0-7.5); PROTEIN,URINE NEGATIVE (NEGATIVE); UROBILINOGEN,URINE 0.2 (NORMAL) E.U./dL (NORMAL)
[2019-12-30 13:01] LABS: CALCIUM 8.4 mg/dL (8.5-10.3); CREATININE 0.7 mg/dL (0.6-1.2)
[2019-12-30 13:02] LABS: CLARITY,URINE CLEAR (CLEAR)
[2019-12-30 13:11] LABS: AMPHETAMINE SCREEN,URINE NEGATIVE (NEGATIVE); BENZODIAZEPINES SCREEN, URINE NEGATIVE (NEGATIVE); COCAINE SCREEN URINE NEGATIVE (NEGATIVE); METHADONE SCREEN, URINE NEGATIVE (NEGATIVE); METHAMPHETAMINES SCREEN, URINE NEGATIVE (NEGATIVE); OPIATE SCREEN, URINE NEGATIVE (NEGATIVE); OXYCODONE SCREEN, URINE NEGATIVE (NEGATIVE); PROPOXYPHENE SCREEN, URINE NEGATIVE (NEGATIVE); TRICYCLIC ANTIDEPRESSANT,URINE NEGATIVE (NEGATIVE)
--- NOTE | 2019-12-30 13:13 | CT Report ---
Reason: GLF, ETOH, + LOC Procedure Date: 12/30/2019 Accession Number: [id number] / [id number] Procedure: CT - HEAD WO CPT Code: Final Report FULL RESULT: EXAM: CT HEAD EXAM DATE: 12/30/2019 01:01 PM. CLINICAL HISTORY: Ground-level fall, alcohol abuse, loss of consciousness. COMPARISON: HEAD W/O 11/14/2015 5:32 PM HEAD W/O 09/11/2015 8:37 PM. TECHNIQUE: Multiaxial CT images were obtained from the foramen magnum to the vertex. Reformats: Sagittal and coronal. IV contrast: None. In accordance with CT protocol optimization, one or more of the following dose reduction techniques were utilized for this exam: automated exposure control, adjustment of mA and/or KV based on patient size, or use of iterative reconstructive technique. FINDINGS: Parenchyma: No intraparenchymal hemorrhage. No evidence of mass, midline shift, or CT findings of infarction. Douglas-white differentiation is distinct. Extraaxial Spaces: Normal for age. No subdural or epidural collections identified. Ventricles: Normal in size and position. Sinuses and Orbits: Imaged paranasal sinuses, orbits, and mastoids show no significant abnormality. Bones: No evidence of fracture or calvarial defect. Other: None. IMPRESSION: Normal head CT. No acute fracture or intracranial hemorrhage. RADIA
[2019-12-30 14:04] LABS: ALBUMIN 3.8 g/dL (3.2-5.5); BILIRUBIN,TOTAL 2.5 mg/dL (0.2-1.0); MAGNESIUM 2.3 mg/dL (1.7-2.8); TOTAL PROTEIN 6.4 g/dL (6.7-8.2)
[2019-12-30 15:49] VITALS: BP 126/74
== END 2019-12-30 15:55 | disposition home or self-care (01) ==
LOC: EDUNIT# → ED 12:16
DX: S06.0X9A Concussion with loss of consciousness of unspecified duration, initial encounter (principal); W19.XXXA Unspecified fall, initial encounter; W22.8XXA Striking against or struck by other objects, initial encounter; Y92.002 Bathroom of unspecified non-institutional (private) residence as the place of occurrence of the external cause; F10.230 Alcohol dependence with withdrawal, uncomplicated
CPT/HCPCS: 36415; 70450; 80048; 80076; 80306; 81001; 81003; 83735; 85025; 87086; 93005; 96361; 96374; 99284

== ENCOUNTER 2020-03-03 18:23 | Emergency (ER) | payer MEDICAID ==
[2020-03-03] MEDS ORDERED: DICYCLOMINE 10 MG CAPSULE PO STA (18:42)
[2020-03-03] MEDS ORDERED: LOPERAMIDE 2 MG CAPSULE PO STA (18:42)
[2020-03-03] MEDS ORDERED: ONDANSETRON 4 MG/2 ML VIAL IVP STA (18:42)
[2020-03-03] MEDS ORDERED: SODIUM CHLORIDE 0.9% 1,000 ML IV STA (18:42)
[2020-03-03] MEDS ORDERED: THIAMINE INJ 100 MG in SODIUM CHLORIDE 0.9% 50 ML IV STA (18:42)
--- NOTE | 2020-03-03 18:44 | ED Physician Documentation ---
PD HPI ABD PAIN - Stated complaint Stated Complaint: NVD - Chief complaint Chief Complaint: Abd Pain - History obtained from History obtained from: Patient (34-year-old gentleman with longstanding history of alcohol abuse. He was actually sober for several years and doing well, but relapsed to alcohol about 6 or 8 months ago. Over the last 4 to 5 days he has had left lower quadrant pain associated with vomiting and diarrhea. No blood fr om either end. The pain and the vomiting have not kept him from drinking. He describes the pain as burning, nonradiating. No sick contacts. No fevers.) Review of Systems Ten Systems: 10 systems reviewed and negative Constitutional: denies: Fever, Chills Cardiac: denies: Chest pain / pressure, Palpitations Respiratory: denies: Dyspnea, Cough GI: reports: Abdominal Pain, Nausea, Vomiting, Diarrhea. denies: Hematemesis, Bloody / black stool PD PAST MEDICAL HISTORY - Past Medical History Cardiovascular: None Respiratory: None Neuro: Seizure disorder Endocrine/Autoimmune: None GI: GERD, Chronic diarrhea : None HEENT: None Psych: None Musculoskeletal: None Derm: None - Past Surgical History Past Surgical History: Yes General: Colonoscopy HEENT: Tonsil/Adenoidectomy - Present Medications Home Medications: Ambulatory Orders Medication Instructions Recorded Confirmed Gabapentin [Neurontin] 800 mg PO QID 01/03/15 11/15/18 tiZANidine [Zanaflex] 4 mg PO BID PRN 06/06/17 11/15/18 LORazepam [Ativan] 0.5 - 1 mg PO QPM PRN 11/15/18 11/15/18 Propranolol HCl 20 mg PO QID PRN 11/15/18 11/15/18 buPROPion HCL [Bupropion HCl Sr] 150 mg PO DAILY 11/15/18 11/15/18 Ibuprofen 400 mg PO Q6HR #25 tablet 11/17/18 Ibuprofen [Motrin] 400 mg PO Q4HR PRN tablet 11/17/18 Ondansetron Odt [Zofran Odt] 4 mg TL Q6HR PRN #10 tablet 11/17/18 Thiamine [Vitamin B-1] 100 mg PO DAILY #30 tablet 11/17/18 chlordiazePOXIDE [Librium] See Taper PO Q6HR 3 Days capsule 11/17/18 Ondansetron Odt [Zofran] 4 mg TL Q6H PRN #10 tablet 03/03/20 diazePAM [Valium] 5 - 10 mg PO TID PRN #15 tablet 03/03/20 - Allergies Allergies/Adverse Reactions: Allergies Allergy/AdvReac Type Severity Reaction Status Date / Time No Known Drug Allergies Allergy Verified 12/06/19 22:59 - Social History Does the pt smoke?: No Smoking Status: Never smoker Does the pt drink ETOH?: No Does the pt have substance abuse?: No - Immunizations Immunizations are current?: Yes Immunizations: TDAP current <10years - POLST Patient has POLST: No POLST Status: Full Code PD ED PE NORMAL - Vitals Vital signs reviewed: Yes - General General: Alert and oriented X 3, No acute distress - Abdomen Abdomen: Normal bowel sounds, Other (Abdomen is soft and completely nontender) - Derm Derm: Other (He has a lot of bruises all over that he cannot really Splane. No specifically tender areas.) - Extremities Extremities: No deformity, No tenderness to palpate, Normal ROM s pain - Neuro Neuro: Alert and oriented X 3, Normal speech Results - Vitals Vitals: Vital Signs - 24 hr 03/03/20 03/03/20 03/03/20 18:31 18:49 19:41 Temperature 36.8 C Heart Rate 97 80 80 Respiratory 16 18 16 Rate Blood Pressure 138/96 H 130/99 H 109/75 O2 Saturation 95 95 96 03/03/20 20:21 Temperature Heart Rate 84 Respiratory 16 Rate Blood Pressure 124/80 O2 Saturation 97 Oxygen O2 Source Room air - Labs Labs: Laboratory Tests 03/03/20 03/03/20 03/03/20 18:52 18:52 18:52 WBC 3.2 L RBC 4.33 L Hgb 16.2 Hct 45.6 MCV 105.3 H MCH 37.4 H MCHC 35.5 RDW 11.6 L Plt Count 114 L MPV 9.4 Neut # (Auto) 1.8 Lymph # (Auto) 1.2 L [place] # (Auto) 0.2 Eos # (Auto) 0.0 Baso # (Auto) 0.0 Absolute Nucleated RBC 0.00 Nucleated RBC % 0.0 PT 13.5 H INR 1.2 Sodium 142 Potassium 3.7 Chloride 104 Carbon Dioxide 27 Anion Gap 11.0 BUN 9 Creatinine 0.7 Estimated GFR (MDRD) 128 Glucose 104 H Calcium 9.2 Magnesium 2.2 Total Bilirubin 1.0 AST 45 H ALT 20 Alkaline Phosphatase 45 Total Protein 8.0 Albumin 4.6 Globulin 3.4 Albumin/Globulin Ratio 1.4 Lipase 54 H PD MEDICAL DECISION MAKING - ED course ED course: 34-year-old gentleman with alcoholism and now abdominal pain, benign exam on initial evaluation and on repeat exam at 8:35 PM prior to discharge. After divided doses of medication he was feeling much better and tolerated p.o. Challenge. Departure - Departure Disposition: 01 Home, Self Care Clinical Impression: Alcohol abuse Abdominal pain Qualifiers: Abdominal location: generalized Qualified Code(s): R10.84 - Generalized abdominal pain Alcohol intoxication Qualifiers: Complication of substance-induced condition: uncomplicated Qualified Code(s): F10.920 - Alcohol use, unspecified with intoxication, uncomplicated Condition: Good Record reviewed to determine appropriate education?: Yes Instructions: ED Alcohol Intoxication, ED Abdominal Pain Unkn Cause Prescriptions: diazePAM [Valium] 5 - 10 mg PO TID PRN #15 tablet PRN Reason: Spasms Ondansetron Odt [Zofran] 4 mg TL Q6H PRN #10 tablet PRN Reason: Nausea / Vomiting Comments: For the Valium, do not fill it till tomorrow, your girlfriend should hold the prescription and not to give it to you if there is any concern that you have been drinking. Follow-up with your primary care physician. Also seek out Alcoholics Anonymous. Return anytime if worse.
[2020-03-03 18:56] LABS: BASOPHILS % (AUTO) 0.6 %; EOSINOPHILS % (AUTO) 0.3 %; HGB - HEMOGLOBIN 16.2 g/dL (14.0-18.0); LYMPHOCYTES # (AUTO) 1.2 10^3/uL (1.5-3.5); LYMPHOCYTES % (AUTO) 36.2 %; MEAN CORPUSCULAR HEMOGLOBIN 37.4 pg (27.0-31.0); MEAN CORPUSCULAR HGB CONC 35.5 g/dL (32.0-36.0); MEAN CORPUSCULAR VOLUME 105.3 fL (80.0-94.0); MEAN PLATELET VOLUME 9.4 fL (7.4-11.4); MONOCYTES # (AUTO) 0.2 10^3/uL (0.0-1.0); MONOCYTES % (AUTO) 6.9 %; NEUTROPHILS # (AUTO) 1.8 10^3/uL (1.5-6.6); PLT - PLATELET COUNT 114 10^3/uL (130-450); RED BLOOD COUNT 4.33 10^6/uL (4.70-6.10); RED CELL DISTRIBUTION WIDTH 11.6 % (12.0-15.0); WHITE BLOOD COUNT 3.2 x10^3/uL (4.8-10.8)
[2020-03-03 19:02] LABS: INR 1.2 (0.8-1.2); PT - PROTHROMBIN TIME 13.5 secs (9.9-12.6)
[2020-03-03 19:16] LABS: ALBUMIN 4.6 g/dL (3.2-5.5); ALBUMIN/GLOBULIN RATIO 1.4 (1.0-2.2); CALCIUM 9.2 mg/dL (8.5-10.3); CREATININE 0.7 mg/dL (0.6-1.2); MAGNESIUM 2.2 mg/dL (1.7-2.8)
[2020-03-03] MEDS ORDERED: PANTOPRAZOLE 40 MG VIAL IVP STA (19:33)
[2020-03-03] MEDS ORDERED: METOCLOPRAMIDE 10 MG/2 ML VIAL IVP STA (19:33)
[2020-03-03 20:22] VITALS: BP 124/80
== END 2020-03-03 21:15 | disposition home or self-care (01) ==
LOC: ED 18:23
DX: R10.84 Generalized abdominal pain (principal); R11.2 Nausea with vomiting, unspecified; R19.7 Diarrhea, unspecified; F10.129 Alcohol abuse with intoxication, unspecified
CPT/HCPCS: 36415; 80053; 83690; 83735; 85025; 85610; 96365; 96375; 99284; 99285; A9270; J2765; J3411; J7040

== ENCOUNTER 2020-03-17 20:11 | Emergency (ER) | payer MEDICAID ==
--- NOTE | 2020-03-17 21:33 | ED Physician Documentation ---
PD HPI NVD - Stated complaint Stated Complaint: NVD - Chief complaint Chief Complaint: Trauma Ext - History obtained from History obtained from: Patient - History of Present Illness Timing - onset: How many days ago (3 days of nausea and vomiting, states unable to eat food. Has still been drinking to keep from having shaking/withdrawal. Would like to stop alcohol. Friend noted [employer] today that the patient had episode of shaking and poor interaction/not answering questions.) Timing - duration: Days (3) Timing - details: Gradual onset, Still present Associated symptoms: Abdominal pain (upper abd), Loss of appetite. No: Fever, Hematemesis, Dizzy, Near syncope / syncope Contributing factors: Alcohol use. No: Sick contact, Bad food, Travel Similar symptoms before: Diagnosis (alcoholic gastritis, prior pancreatitis, and alcohol related seizures.) Review of Systems Constitutional: reports: Myalgias. denies: Fever, Chills Nose: denies: Rhinorrhea / runny nose, Congestion Throat: denies: Sore throat Respiratory: denies: Cough GI: reports: Abdominal Pain, Nausea, Vomiting. denies: Abdominal Swelling, Constipation, Diarrhea, Hematemesis Musculoskeletal: denies: Neck pain, Back pain Neurologic: reports: Generalized weakness, Seizure (possibly [employer]). denies: Near syncope, Confused, Altered mental status PD PAST MEDICAL HISTORY - Past Medical History Cardiovascular: None Respiratory: None Neuro: Seizure disorder Endocrine/Autoimmune: None GI: GERD, Chronic diarrhea : None HEENT: None Psych: None Musculoskeletal: None Derm: None - Past Surgical History Past Surgical History: Yes General: Colonoscopy HEENT: Tonsil/Adenoidectomy - Present Medications Home Medications: Ambulatory Orders Medication Instructions Recorded Confirmed Gabapentin [Neurontin] 800 mg PO QID 01/03/15 11/15/18 tiZANidine [Zanaflex] 4 mg PO BID PRN 06/06/17 11/15/18 LORazepam [Ativan] 0.5 - 1 mg PO QPM PRN 11/15/18 11/15/18 Propranolol HCl 20 mg PO QID PRN 11/15/18 11/15/18 buPROPion HCL [Bupropion HCl Sr] 150 mg PO DAILY 11/15/18 11/15/18 Ibuprofen 400 mg PO Q6HR #25 tablet 11/17/18 Ibuprofen [Motrin] 400 mg PO Q4HR PRN tablet 11/17/18 Ondansetron Odt [Zofran Odt] 4 mg TL Q6HR PRN #10 tablet 11/17/18 Thiamine [Vitamin B-1] 100 mg PO DAILY #30 tablet 11/17/18 chlordiazePOXIDE [Librium] See Taper PO Q6HR 3 Days capsule 11/17/18 Ondansetron Odt [Zofran] 4 mg TL Q6H PRN #10 tablet 03/03/20 diazePAM [Valium] 5 - 10 mg PO TID PRN #15 tablet 03/03/20 Famotidine 20 mg PO DAILY #30 tablet 03/17/20 Ondansetron Odt [Zofran] 4 mg TL Q6H PRN #10 tablet 03/17/20 chlordiazePOXIDE [Librium] 25 mg PO Q6H PRN #25 capsule 03/17/20 - Allergies Allergies/Adverse Reactions: Allergies Allergy/AdvReac Type Severity Reaction Status Date / Time No Known Drug Allergies Allergy Verified 03/17/20 20:40 - Social History Does the pt smoke?: No Smoking Status: Never smoker Does the pt drink ETOH?: No Does the pt have substance abuse?: No - Immunizations Immunizations are current?: Yes Immunizations: TDAP current <10years - POLST Patient has POLST: No POLST Status: Full Code PD ED PE NORMAL - Vitals Vital signs reviewed: Yes - General General: Alert and oriented X 3, Well developed/nourished - HEENT HEENT: Atraumatic, Pharynx benign. No: Moist mucous membranes - Neck Neck: Supple, no meningeal sign, No adenopathy - Cardiac Cardiac: RRR, No murmur - Respiratory Respiratory: Clear bilaterally - Abdomen Abdomen: Normal bowel sounds, Soft, Non distended, No organomegaly, Other (tender upper abd/epigastric area without percussion nor rebound tenderness) - Male Male : Deferred - Rectal Rectal: Deferred - Back Back: No CVA TTP - Derm Derm: Normal color, Warm and dry - Extremities Extremities: No tenderness to palpate, Normal ROM s pain, No edema, No calf tenderness / cord - Neuro Neuro: Alert and oriented X 3, Normal speech, Other (right hand with numbness along thumb and index finger, weakness for hyperextension at the wrist. Normal color and pulses/cap refill. ) Results - Vitals Vitals: Vital Signs - 24 hr 03/17/20 03/17/20 03/17/20 20:26 20:45 23:02 Temperature 36.9 C Heart Rate 91 80 76 Respiratory 16 18 14 Rate Blood Pressure 147/94 H 144/86 H 126/85 H O2 Saturation 98 98 98 Oxygen O2 Source Room air - Labs Labs: Laboratory Tests 03/17/20 03/17/20 20:41 20:41 WBC 6.0 RBC 4.26 L Hgb 15.9 Hct 45.0 MCV 105.6 H MCH 37.3 H MCHC 35.3 RDW 11.5 L Plt Count 180 MPV 9.4 Neut # (Auto) 4.5 Lymph # (Auto) 0.9 L [place] # (Auto) 0.6 Eos # (Auto) 0.0 Baso # (Auto) 0.0 Absolute Nucleated RBC 0.00 Nucleated RBC % 0.0 Sodium 140 Potassium 3.9 Chloride 97 L Carbon Dioxide 34 H Anion Gap 9.0 BUN 18 Creatinine 0.8 Estimated GFR (MDRD) 110 Glucose 89 Calcium 9.2 Magnesium 2.2 Total Bilirubin 0.7 AST 39 ALT 21 Alkaline Phosphatase 36 L Total Protein 8.0 Albumin 5.1 Globulin 2.9 Albumin/Globulin Ratio 1.8 Lipase 44 Ethyl Alcohol 223.9 - Rads (name of study) right hand Radiology: Prelim report reviewed (no fractures), See rad report PD MEDICAL DECISION MAKING - ED course Complexity details: re-evaluated patient (he is seeming less shaky and nauseated. His BA was still elevated but he could certainly be having some withdrawal/anxiety with it anyway. He is really wanting to head home and his girlfriend is agreeable, will be with him, and bring him back if needed. ), cons idered differential (seems likely alcoholic gastritis and vomiting, with likely anxiety. Might have some element of withdrawal. Sounds like he may have had an alcohol related seizure, which he says he has had in the past. 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 We talked about it being a rather tight timeframe for him to get through the withdrawal treatment timeframe with stopping drinking and using the benzodiazepines. He states he would be willing to give it a good try and seems determined to do that. He states the boat is a dry boat so he would not have any alcohol for the summer. Departure - Departure Disposition: 01 Home, Self Care Clinical Impression: Alcohol related seizure, Alcoholism Gastritis Qualifiers: Gastritis type: alcoholic Chronicity: acute Gastritis bleeding: without bleeding Qualified Code(s): K29.20 - Alcoholic gastritis without bleeding Acute radial nerve palsy Qualifiers: Laterality: right Qualified Code(s): G56.31 - Lesion of radial nerve, right upper limb Condition: Stable Instructions: ED Withdrawal Alcohol, ED Nausea Vomiting Prescriptions: chlordiazePOXIDE [Librium] 25 mg PO Q6H PRN #25 capsule PRN Reason: Alcohol Withdrawal Famotidine 20 mg PO DAILY #30 tablet Ondansetron Odt [Zofran] 4 mg TL Q6H PRN #10 tablet PRN Reason: Nausea / Vomiting Comments: Use the Ativan 1 mg to 2 mg every 6 hours if needed for withdrawal symptoms. Stop alcohol. Use Zofran as needed for nausea and vomiting. Famotidine acid reducing medicine daily for the next several weeks. Use the Librium 1-2 every 6 hours if needed for withdrawal symptoms with the idea of tapering the amount over the next 3 to 5 days. Try to decrease the amount taken and then lengthen the interval to every 8 hours or twice a day as tolerated. Typically the tapering can occur over 3 to 5 days. Discharge Date/Time: 03/17/20 23:04
[2020-03-17] MEDS ORDERED: FAMOTIDINE 20 MG/2 ML SYRINGE IVP STA (21:46)
[2020-03-17] MEDS ORDERED: SODIUM CHLORIDE 0.9% 1,000 ML IV STA (21:46)
[2020-03-17] MEDS ORDERED: ONDANSETRON 4 MG/2 ML VIAL IVP STA (21:46)
--- NOTE | 2020-03-17 21:53 | XRAY Report ---
Reason: possible injury Procedure Date: 03/17/2020 Accession Number: [id number] / [id number] Procedure: XR - Hand 3 View RT CPT Code: Final Report FULL RESULT: PROCEDURE: Hand 3 View RT INDICATIONS: possible injury TECHNIQUE: 3 views of the hand(s) acquired. COMPARISON: None. FINDINGS: Bones: No fractures or dislocations. No suspicious bony lesions. Soft tissues: No suspicious soft tissue calcifications. IMPRESSION: No trauma found. Reviewed by: Linwood Miller MD on 03/17/2020 9:51 PM PDT Approved by: Linwood Miller MD on 03/17/2020 9:51 PM PDT Station ID: [id number]
[2020-03-17 21:55] LABS: BASOPHILS % (AUTO) 0.5 %; EOSINOPHILS % (AUTO) 0.2 %; HGB - HEMOGLOBIN 15.9 g/dL (14.0-18.0); LYMPHOCYTES # (AUTO) 0.9 10^3/uL (1.5-3.5); LYMPHOCYTES % (AUTO) 14.1 %; MEAN CORPUSCULAR HEMOGLOBIN 37.3 pg (27.0-31.0); MEAN CORPUSCULAR HGB CONC 35.3 g/dL (32.0-36.0); MEAN CORPUSCULAR VOLUME 105.6 fL (80.0-94.0); MEAN PLATELET VOLUME 9.4 fL (7.4-11.4); MONOCYTES # (AUTO) 0.6 10^3/uL (0.0-1.0); MONOCYTES % (AUTO) 9.5 %; NEUTROPHILS # (AUTO) 4.5 10^3/uL (1.5-6.6); NEUTROPHILS % (AUTO) 75.4 %; PLT - PLATELET COUNT 180 10^3/uL (130-450); RED BLOOD COUNT 4.26 10^6/uL (4.70-6.10); RED CELL DISTRIBUTION WIDTH 11.5 % (12.0-15.0)
[2020-03-17] MEDS ORDERED: LORazepam 2 MG/ML VIAL IVP STA (21:56)
[2020-03-17 22:07] LABS: ALBUMIN 5.1 g/dL (3.2-5.5); ALBUMIN/GLOBULIN RATIO 1.8 (1.0-2.2); BILIRUBIN,TOTAL 0.7 mg/dL (0.2-1.0); CALCIUM 9.2 mg/dL (8.5-10.3); CREATININE 0.8 mg/dL (0.6-1.2); MAGNESIUM 2.2 mg/dL (1.7-2.8)
[2020-03-17] MEDS ORDERED: ONDANSETRON ODT 4 MG Prepack 2 TL PRN (22:50)
[2020-03-17] MEDS ORDERED: LORazepam 1 MG TABLET PO STA (22:50)
[2020-03-17 23:03] VITALS: BP 126/85
== END 2020-03-17 23:04 | disposition home or self-care (01) ==
LOC: ED 20:11
DX: K29.20 Alcoholic gastritis without bleeding (principal); F10.20 Alcohol dependence, uncomplicated; G40.509 Epileptic seizures related to external causes, not intractable, without status epilepticus; G56.31 Lesion of radial nerve, right upper limb
CPT/HCPCS: 36415; 73130; 80053; 80320; 83690; 83735; 85025; 96361; 96374; 96375; 96376; 99284; J2060; J8499

== ENCOUNTER 2020-06-08 12:35 | Outpatient (CLI) | payer MEDICAID ==
[2020-06-08 15:14] LABS: BASOPHILS % (AUTO) 0.9 %; EOSINOPHILS % (AUTO) 0.6 %; HGB - HEMOGLOBIN 15.5 g/dL (14.0-18.0); LYMPHOCYTES % (AUTO) 29.8 %; MEAN CORPUSCULAR HEMOGLOBIN 35.8 pg (27.0-31.0); MEAN CORPUSCULAR HGB CONC 35.6 g/dL (32.0-36.0); MEAN CORPUSCULAR VOLUME 100.7 fL (80.0-94.0); MEAN PLATELET VOLUME 9.7 fL (7.4-11.4); MONOCYTES # (AUTO) 0.2 10^3/uL (0.0-1.0); MONOCYTES % (AUTO) 4.8 %; NEUTROPHILS # (AUTO) 2.1 10^3/uL (1.5-6.6); NEUTROPHILS % (AUTO) 63.3 %; PLT - PLATELET COUNT 122 10^3/uL (130-450); RED BLOOD COUNT 4.33 10^6/uL (4.70-6.10); RED CELL DISTRIBUTION WIDTH 13.5 % (12.0-15.0); WHITE BLOOD COUNT 3.3 x10^3/uL (4.8-10.8)
[2020-06-08 15:39] LABS: ALBUMIN 4.5 g/dL (3.2-5.5); ALBUMIN/GLOBULIN RATIO 1.7 (1.0-2.2); BILIRUBIN,TOTAL 1.7 mg/dL (0.2-1.0); CALCIUM 9.1 mg/dL (8.5-10.3); CRP - C-REACTIVE PROTEIN 1.9 mg/dL (0-1.0); TOTAL PROTEIN 7.2 g/dL (6.7-8.2)
== END 2020-06-08 12:36 | disposition home or self-care (01) ==
LOC: LAB.S 12:35
PROVIDERS: ATTEND Physician Assistant Medical
DX: R19.7 Diarrhea, unspecified (principal)
CPT/HCPCS: 36415; 80053; 82150; 83690; 84443; 85025; 86140

== ENCOUNTER 2020-06-09 07:00 | Outpatient (CLI) | payer MEDICAID | END 2020-06-09 23:59 | disposition home or self-care (01) | LOC: LAB.R 07:00 | PROVIDERS: ATTEND Physician Assistant Medical | DX: R19.7 Diarrhea, unspecified (principal) | CPT/HCPCS: 81599; 87045; 87046; 87177; 87209; 87427; 87506 ==

== ENCOUNTER 2020-06-23 11:32 | Inpatient (IN) | payer MEDICAID ==
[2020-06-23] MEDS ORDERED: SODIUM CHLORIDE 0.9% 1,000 ML IV STA (11:41)
[2020-06-23] MEDS ORDERED: ONDANSETRON 4 MG/2 ML VIAL IVP STA ×2 (11:41→15:10)
--- NOTE | 2020-06-23 12:01 | ED Physician Documentation ---
History of Present Illness - Stated complaint Stated Complaint: BLOOD IN STOOL - Chief complaint Chief Complaint: Abd Pain - History obtained from History obtained from: Patient, Other (chart) - History of Present Illness Timing: Prior to arrival, How many hours ago (24) - Additonal information Additional information: 34-year-old male with a history of alcohol abuse presents to the emergency department with approximately 24 hours of vomiting and diarrhea. He reports vomiting coffee-ground emesis but also having hematochezia over the course of the night. He reports left-sided abdominal pain feeling weak and dizzy. At the time this gentleman does smell heavily of alcohol but reports last drinking yesterday evening. Fainting episodes chest pain or shortness of breath. He does have a history of alcohol withdrawal and seizures related to that. He reports that he last had a colonoscopy in 2007. He denies any history of esophageal varices but denies ever having an EGD. 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 However when they returned to [facility] he began to drink again. He has been back on [facility] for about 6 weeks and states that he is drinking only 3-4 beers a day Review of Systems Constitutional: reports: Chills, Myalgias Eyes: reports: Reviewed and negative Ears: reports: Reviewed and negative Nose: reports: Reviewed and negative Throat: reports: Reviewed and negative Cardiac: reports: Chest pain / pressure, Calf pain. denies: Pedal edema Respiratory: denies: Dyspnea, Cough GI: reports: Abdominal Pain, Nausea, Vomiting, Diarrhea, Hematemesis, Bloody / black stool. denies: Abdominal Swelling, Constipation : denies: Dysuria, Frequency, Hesitancy, Unable to Void, Hematuria Skin: denies: Rash, Lesions Musculoskeletal: reports: Reviewed and negative Neurologic: reports: Near syncope, Seizure (hx of etoh withdrawl). denies: Generalized weakness, Focal weakness, Difficulty speaking, Altered mental status, Headache, Head injury, LOC Psychiatric: reports: Reviewed and negative PD PAST MEDICAL HISTORY - Past Medical History Cardiovascular: None Respiratory: None Neuro: Seizure disorder Endocrine/Autoimmune: None GI: GERD, Chronic diarrhea : None HEENT: None Psych: None Musculoskeletal: None Derm: None - Past Surgical History Past Surgical History: Yes General: Colonoscopy HEENT: Tonsil/Adenoidectomy - Present Medications Home Medications: Ambulatory Orders Medication Instructions Recorded Confirmed Gabapentin [Neurontin] 800 mg PO QID 01/03/15 11/15/18 tiZANidine [Zanaflex] 4 mg PO TID PRN 06/06/17 11/15/18 buPROPion HCL [Bupropion HCl Sr] 150 mg PO DAILY 11/15/18 11/15/18 Ondansetron Odt [Zofran] 4 mg TL Q6H PRN #10 tablet 03/03/20 Famotidine 20 mg PO DAILY #30 tablet 03/17/20 chlordiazePOXIDE [Librium] 25 mg PO Q6H PRN #25 capsule 03/17/20 Albuterol Sulf [Ventolin Hfa 2 puffs IH QID PRN 06/23/20 Inhaler] SUMAtriptan succinate [Sumatriptan 100 mg PO DAILY PRN 06/23/20 Succinate] - Allergies Allergies/Adverse Reactions: Allergies Allergy/AdvReac Type Severity Reaction Status Date / Time No Known Drug Allergies Allergy Verified 06/23/20 11:39 - Social History Does the pt smoke?: No Smoking Status: Never smoker Does the pt drink ETOH?: No Does the pt have substance abuse?: No - Immunizations Immunizations are current?: Yes Immunizations: TDAP current <10years - POLST Patient has POLST: No POLST Status: Full Code PD ED PE EXPANDED - General General: Alert, No acute distress, Anxious, Other (glassy eyed; smells heavily of etoh) - HEENT HEENT: Atraumatic, PERRL, EOMI - Neck Neck: Supple w/out meningeal sx. No: Adenopathy, Soft tissue TTP, Limited ROM - Cardiac Cardiac: Regular Rate, Regular Rhythm, Radial strong equal, Pedal strong equal, Cap refill < 2 sec - Respiratory Respiratory: Clear to ausultation vane. No: Distress, Labored, Wheezing - Abdomen Abdomen: Hyperactive BS, Tender to palpation, Left abdomen (left sided tenderness to palpation, no rebound or guarding), Hepatomegaly. No: Rebound, Guarding, Surgical scars - Rectal Rectal: Normal Tone, Other (brown/light red stool on gloved finger; assume heme positive) - Derm Derm: Normal color. No: Jaundiced, Petecchiae, Purpura - Extremities Extremities: Normal - Neuro Neuro: Alert and Oriented X 3, CNII-XII intact, Cerebellar nl, Normal gait, Normal speech - GCS Eye Opening: Spontaneous Motor: Obeys Commands Verbal: Oriented Total: 15 Results - Vitals Vitals: Vital Signs - 24 hr 06/23/20 06/23/20 06/23/20 11:44 12:01 12:23 Temperature 36.6 C 36.8 C Heart Rate 62 64 Respiratory 16 18 Rate Blood Pressure 137/94 H 130/93 H O2 Saturation 96 97 06/23/20 06/23/20 06/23/20 12:30 13:00 14:07 Temperature 36.8 C Heart Rate 60 82 56 L Respiratory 13 15 21 Rate Blood Pressure 123/94 H 117/67 116/75 O2 Saturation 99 97 98 06/23/20 06/23/20 06/23/20 14:30 15:06 15:30 Temperature Heart Rate 61 62 57 L Respiratory 13 15 10 L Rate Blood Pressure 126/71 117/68 115/72 O2 Saturation 96 99 97 Oxygen O2 Source Room air - EKG (time done) 1217 Rate: Rate (enter#) (55) Rhythm: NSR [place]: Normal Intervals: Normal PA QRS: Normal Ischemia: ST elevation c/w repol Compare to prior EKG: Unchanged from prior EKG Computer interpretation: Agree with computer - Labs Labs: Laboratory Tests 06/23/20 06/23/20 06/23/20 11:50 11:50 11:50 WBC 2.8 L RBC 4.34 L Hgb 15.4 Hct 44.6 MCV 103.7 H MCH 36.0 H MCHC 34.5 RDW 12.7 Plt Count 111 L MPV 11.3 Neut # (Auto) Not Reportable Lymph # (Auto) Not Reportable [place] # (Auto) Not Reportable Eos # (Auto) Not Reportable Baso # (Auto) Not Reportable Absolute Nucleated RBC Not Reportable Total Counted 100 Band Neuts % (Manual) 1 Abnorm Lymph % (Manual) 0 Nucleated RBC % Not Reportable Neutrophils # (Manual) 1.5 Lymphocytes # (Manual) 1.1 L Monocytes # (Manual) 0.1 Eosinophils # (Manual) 0.0 Basophils # (Manual) 0.1 Differential Comment MANUAL DIFFERENTIAL WBC Morphology NORMAL APPEARANCE Platelet Estimate DECREASED (<130,000) Platelet Morphology NORMAL APPEARANCE RBC Morph Micro Appear 1+ MACROCYTOSIS Whole Blood INR Sodium 138 Potassium 4.7 Chloride 100 L Carbon Dioxide 26 Anion Gap 12.0 BUN 17 Creatinine 1.0 Estimated GFR (MDRD) 85 L Glucose 97 Calcium 8.6 Total Bilirubin 1.7 H AST 330 H ALT 122 H Alkaline Phosphatase 62 Total Creatine Kinase 104 Troponin I High Sens Total Protein 6.1 L Albumin 4.0 Globulin 2.2 Albumin/Globulin Ratio 1.9 Lipase 49 Urine Color Urine Clarity Urine pH Ur Specific [place] Urine Protein Urine Glucose (UA) Urine Ketones Urine Occult Blood Urine Nitrite Urine Bilirubin Urine Urobilinogen Ur Leukocyte Esterase Ur Microscopic Review Urine Culture Comments Ethyl Alcohol 201.9 Blood Type Blood Type Recheck Antibody Screen 06/23/20 06/23/20 06/23/20 11:50 11:50 12:20 WBC RBC Hgb Hct MCV MCH MCHC RDW Plt Count MPV Neut # (Auto) Lymph # (Auto) [place] # (Auto) Eos # (Auto) Baso # (Auto) Absolute Nucleated RBC Total Counted Band Neuts % (Manual) Abnorm Lymph % (Manual) Nucleated RBC % Neutrophils # (Manual) Lymphocytes # (Manual) Monocytes # (Manual) Eosinophils # (Manual) Basophils # (Manual) Differential Comment WBC Morphology Platelet Estimate Platelet Morphology RBC Morph Micro Appear Whole Blood INR 1.1 Sodium Potassium Chloride Carbon Dioxide Anion Gap BUN Creatinine Estimated GFR (MDRD) Glucose Calcium Total Bilirubin AST ALT Alkaline Phosphatase Total Creatine Kinase Troponin I High Sens 7.2 Total Protein Albumin Globulin Albumin/Globulin Ratio Lipase Urine Color Urine Clarity Urine pH Ur Specific [place] Urine Protein Urine Glucose (UA) Urine Ketones Urine Occult Blood Urine Nitrite Urine Bilirubin Urine Urobilinogen Ur Leukocyte Esterase Ur Microscopic Review Urine Culture Comments Ethyl Alcohol Blood Type Blood Type Recheck AB POSITIVE Antibody Screen 06/23/20 06/23/20 06/23/20 12:45 13:05 14:50 WBC 2.4 L RBC 3.83 L Hgb 13.9 L Hct 39.7 L MCV 103.7 H MCH 36.3 H MCHC 35.0 RDW 12.9 Plt Count 84 L MPV 12.9 H Neut # (Auto) Lymph # (Auto) [place] # (Auto) Eos # (Auto) Baso # (Auto) Absolute Nucleated RBC Total Counted Band Neuts % (Manual) Abnorm Lymph % (Manual) Nucleated RBC % Neutrophils # (Manual) Lymphocytes # (Manual) Monocytes # (Manual) Eosinophils # (Manual) Basophils # (Manual) Differential Comment WBC Morphology Platelet Estimate Platelet Morphology RBC Morph Micro Appear Whole Blood INR Sodium Potassium Chloride Carbon Dioxide Anion Gap BUN Creatinine Estimated GFR (MDRD) Glucose Calcium Total Bilirubin AST ALT Alkaline Phosphatase Total Creatine Kinase Troponin I High Sens Total Protein Albumin Globulin Albumin/Globulin Ratio Lipase Urine Color YELLOW Urine Clarity CLEAR Urine pH 7.0 Ur Specific [place] 1.020 Urine Protein NEGATIVE Urine Glucose (UA) NEGATIVE Urine Ketones NEGATIVE Urine Occult Blood NEGATIVE Urine Nitrite NEGATIVE Urine Bilirubin NEGATIVE Urine Urobilinogen 0.2 (NORMAL) Ur Leukocyte Esterase NEGATIVE Ur Microscopic Review NOT INDICATED Urine Culture Comments NOT INDICATED Ethyl Alcohol Blood Type AB POSITIVE Blood Type Recheck Antibody Screen NEGATIVE - Rads (name of study) CXR Radiology: Final report received (No acute cardiopulmonary process) PD MEDICAL DECISION MAKING - ED course Complexity details: reviewed results, re-evaluated patient, considered differential, d/w patient ED course: 34-year-old male with a history of alcohol abuse previous acute alcoholic hepatitis presents to the emergency department with about 24 hours of hemataemesis and reported hematochezia. - Patient presented to the emergency department he was hemodynamically stable. Initial hemoglobin 15. He was given 1 L of IV fluids and after nearly 4 hours in the emergency department repeat hemoglobin was 13.9. During the time of his stay here he has not had any further vomiting or hematochezia. CT angios of the abdomen Did not show any acute abnormality. We did discuss with the radiologist if she felt that there were any bleeding varices and she indicated that there were not. Patient's INR was 1.1. He had LFT elevations consistent with alcoholic hepatitis. He was started on a Protonix infusion while here in the emergency department. I have spoken with Dr. Mary Gastelum admitting hospitalist at 1600 who agrees to meet this gentleman for GI bleed and acute alcoholic hepatitis. Departure - Departure Disposition: 66 [facility] DC/Xfer Clinical Impression: GI bleed Qualifiers: GI bleed type/associated pathology: unspecified gastrointestinal hemorrhage type Qualified Code(s): K92.2 - Gastrointestinal hemorrhage, unspecified Alcoholic hepatitis Qualifiers: Ascites presence: without ascites Qualified Code(s): K70.10 - Alcoholic hepatitis without ascites Condition: Stable Discharge Date/Time: 06/23/20 17:12
[2020-06-23 12:03] LABS: BASOPHILS % (AUTO) 1.1 %; EOSINOPHILS % (AUTO) 0.4 %; MEAN PLATELET VOLUME 11.3 fL (7.4-11.4); MONOCYTES % (AUTO) 5.4 %; NEUTROPHILS % (AUTO) 49.7 %; PLT - PLATELET COUNT 111 10^3/uL (130-450); RED BLOOD COUNT 4.34 10^6/uL (4.70-6.10); RED CELL DISTRIBUTION WIDTH 12.7 % (12.0-15.0); WHITE BLOOD COUNT 2.8 x10^3/uL (4.8-10.8)
[2020-06-23 12:09] LABS: ABNORMAL LYMPHS % (MANUAL) 0 %
[2020-06-23] MEDS ORDERED: PANTOPRAZOLE 40 MG VIAL IVP STA (12:19)
[2020-06-23] MEDS ORDERED: PANTOPRAZOLE 80 MG in SODIUM CHLORIDE 0.9% 100ML 100 ML IV STA (12:19)
[2020-06-23 12:24] LABS: BAND NEUTROPHILS % (MANUAL) 1 %; BASOPHILS # (MANUAL) 0.1 10^3/uL (0-0.1); BASOPHILS % (MANUAL) 4 %; LYMPHOCYTES # (MANUAL) 1.1 10^3/uL (1.5-3.5); LYMPHOCYTES % (MANUAL) 40 %; MONOCYTES # (MANUAL) 0.1 10^3/uL (0.0-1.0)
[2020-06-23 12:25] LABS: PLATELET ESTIMATE, MANUAL DECREASED (<130,000) (NORMAL); PLATELET MORPHOLOGY NORMAL APPEARANCE (NORMAL); RBC MORPHOLOGY (MULTIPLE) 1+ MACROCYTOSIS (NORMAL)
[2020-06-23 12:26] LABS: DIFFERENTIAL COMMENT MANUAL DIFFERENTIAL
--- NOTE | 2020-06-23 12:31 | XRAY Report ---
PROCEDURE: Chest 1 View X-Ray INDICATIONS: GIB TECHNIQUE: One view of the chest was acquired. COMPARISON: 06/17/2019 FINDINGS: Surgical changes and devices: None. Lungs and pleura: No pleural effusions or pneumothorax. Lungs are clear. Mediastinum: Mediastinal contours appear normal. Heart size is normal. Bones and chest wall: No suspicious bony lesions. Overlying soft tissues appear unremarkable. IMPRESSION: Unremarkable portable chest. Reviewed by: Lee Manning MD on 06/23/2020 11:30 AM LENY Approved by: Lee Manning MD on 06/23/2020 11:30 AM AKLILY Station ID: [id number]
[2020-06-23] MEDS ORDERED: IOVERSOL 320 100 ML VIAL IVP ONE ×2 (12:36→13:47)
[2020-06-23 13:04] LABS: ALBUMIN/GLOBULIN RATIO 1.9 (1.0-2.2); BILIRUBIN,TOTAL 1.7 mg/dL (0.2-1.0); CALCIUM 8.6 mg/dL (8.5-10.3); TOTAL PROTEIN 6.1 g/dL (6.7-8.2)
[2020-06-23 13:16] LABS: BILIRUBIN,URINE NEGATIVE (NEGATIVE); GLUCOSE, URINE (UA) NEGATIVE (NEGATIVE); KETONES,URINE (UA) NEGATIVE (NEGATIVE); LEUKOCYTE ESTERASE, URINE NEGATIVE (NEGATIVE); NITRITE,URINE NEGATIVE (NEGATIVE); OCCULT BLOOD,URINE NEGATIVE (NEGATIVE); PROTEIN,URINE NEGATIVE (NEGATIVE); UROBILINOGEN,URINE 0.2 (NORMAL) E.U./dL (NORMAL)
[2020-06-23 13:20] LABS: CLARITY,URINE CLEAR (CLEAR)
[2020-06-23 13:38] LABS: HGB - HEMOGLOBIN 15.4 g/dL (14.0-18.0)
[2020-06-23 13:39] LABS: MEAN CORPUSCULAR HGB CONC 34.5 g/dL (32.0-36.0)
[2020-06-23 13:41] LABS: MEAN CORPUSCULAR VOLUME 103.7 fL (80.0-94.0)
[2020-06-23] MEDS ORDERED: SODIUM CHLORIDE 0.9% 500 ML IV STA (14:39)
[2020-06-23 15:10] LABS: HGB - HEMOGLOBIN 13.9 g/dL (14.0-18.0); MEAN CORPUSCULAR HEMOGLOBIN 36.3 pg (27.0-31.0); MEAN CORPUSCULAR VOLUME 103.7 fL (80.0-94.0); MEAN PLATELET VOLUME 12.9 fL (7.4-11.4); RED BLOOD COUNT 3.83 10^6/uL (4.70-6.10); RED CELL DISTRIBUTION WIDTH 12.9 % (12.0-15.0); WHITE BLOOD COUNT 2.4 x10^3/uL (4.8-10.8)
--- NOTE | 2020-06-23 15:35 | CT Report ---
PROCEDURE: ANGIO ABDOMEN/PELVIS W INDICATIONS: GI bleed CONTRAST: IV CONTRAST: Optiray 320 ml: 100 PO CONTRAST: *NO PO CONTRAST TECHNIQUE: After the administration of intravenous contrast, 2 and 5 mm sections acquired from the diaphragm to the iliac crests. 3-dimensional maximum intensity projection (MIP) coronal and sagittal reformats, a nd/or 3-dimensional volume rendering reformatting was then performed. For radiation dose reduction, the following was used: automated exposure control, adjustment of mA and/or kV according to patient size. COMPARISON: Chest x-ray 06/23/2020, CT [facility] 11/17/2018 FINDINGS: Image quality: Excellent. Extravascular tissues: Lung bases are clear. Heart size is normal. Liver is enlarged with steatosi s. The spleen is normal in size and enhancement. Gallbladder is unremarkable Biliary system is non dilated. Pancreas enhances normally. No adrenal nodules. Kidneys are normal in size and enhancemen t, without hydronephrosis. Non-opacified bowel loops are nonobstructive. The left colon is collapsed secondary to incomplete distention, limiting evaluation. There is a mildly thickened appearance of t he proximal ascending colon without inflammatory change. Scattered colonic diverticula are present. N o free fluid or air. No retroperitoneal or mesenteric adenopathy. Minimal fat-containing ventral her daren is present. No suspicious bony abnormalities. No vertebral body compression fractures. Abdominal aorta: No evidence of aneurysmal dilation, dissection or hemodynamically significant steno sis. Mesenteric arteries: No evidence of aneurysmal dilation, dissection or hemodynamically significant s tenosis. Renal arteries: No evidence of aneurysmal dilation, dissection or hemodynamically significant stenos is. IMPRESSION: 1. Limited evaluation of the distal colon secondary to incomplete distention. However, no surrounding inflammatory change. The right colon demonstrates mild thickening within the ascending portion, over all nonspecific secondary to incomplete distention and no pericolonic inflammatory change. 2. No visualized evidence of aneurysmal dilation, dissection or hemodynamically significant stenosis. No vessel extravasation. Reviewed by: Juanita Kumar MD on 06/23/2020 3:34 PM PDT Approved by: Juanita Kumar MD on 06/23/2020 3:34 PM PDT Station ID: [id number]
[2020-06-23] MEDS ORDERED: PROCHLORPERAZINE 10 MG/2 ML VIAL IVP PRN (16:00)
[2020-06-23] MEDS ORDERED: LACTATED RINGERS 1,000 ML IV SCH (16:00)
[2020-06-23] MEDS ORDERED: THIAMINE INJ 100 MG in SODIUM CHLORIDE 0.9% 50 ML IV STA (16:10)
--- NOTE | 2020-06-23 16:28 | HISTORY & PHYSICAL EXAMINATION ---
Chief Complaint - Chief Complaint Chief Complaint: GI bleed and vomiting of blood History of Present Illness - Admitted From Admitted From:: ER - History Obtained From Records Reviewed: [facility] History obtained from: pt - History of Present Illness HPI Comment/Other: This is a 34-year-old male with a history of alcohol abuse and seizure-caused by alcohol withdrawal, presents to the emergency department with overnight of vomiting and diarrhea. He reports vomiting coffee-ground emesis on last night at the same time, he still drunk bear, but also having hematochezia over the night. He report his diarrhea is stopped now. He report his last drink is last night to have three large beer. Patient report his father and his uncle both from alcohol abuse. He reports that he had a colonoscopy and EGD in 2007, he report both was normal reported to him. Initial hemoglobin 15. He was given 1 L of IV fluids and after nearly 4 hours in the emergency department, in the repeated hemoglobin was 13.9. IN hospital, he has not had any further vomiting of blood or hematochezia. CT angios of the abdomen Did not indicate acute abnormality. ER discuss with the radiologist, radiologist did not think pt has varices. Patient was admitted for GI bleeding, general surgeon was called and the plan to have EGD first on tomorrow. Discussed the care goal with the patient, patient want full code History - Past Medical History Cardiovascular: reports: None Respiratory: reports: None Neuro: reports: Seizure disorder Endocrine/Autoimmune: reports: None GI: reports: GERD, Chronic diarrhea : reports: None HEENT: reports: None Psych: reports: None Musculoskeletal: reports: None Derm: reports: None MRSA Hx?: No - Past Surgical History General: reports: Colonoscopy HEENT: reports: Tonsil/Adenoidectomy - Family & Social History Family History Comment/Other: Father of complications of alcoholism when he was in his 60s. Complication included acute alcohol poisoning. Mother is alive And she also has problems with alcoholism. One sister is alive and well positive for diabetes. Positive for heart disease. Negative for cancer. No children Social History Notes: Social history born in [facility]. Living on [facility] since the age of 1. Endorses the use of cannabis, but no heroin, speed, methamphetamines. Drinks on a daily basis.12 hard ciders a day. Never smoked. Unable to hold down a job. without any children.Currently living with his girlfriend in [place]. She does not have any problems with alcoholism or recreational substance abuse. - Substance History Use: Uses substance without health or social issues: Cannabis - POLST Patient has POLST: No POLST Status: Full Code Meds/Allgy - Home Medications Home Medications: Ambulatory Orders Medication Instructions Recorded Confirmed Gabapentin [Neurontin] 800 mg PO QID 01/03/15 11/15/18 tiZANidine [Zanaflex] 4 mg PO TID PRN 06/06/17 11/15/18 buPROPion HCL [Bupropion HCl Sr] 150 mg PO DAILY 11/15/18 11/15/18 Ondansetron Odt [Zofran] 4 mg TL Q6H PRN #10 tablet 03/03/20 Famotidine 20 mg PO DAILY #30 tablet 03/17/20 chlordiazePOXIDE [Librium] 25 mg PO Q6H PRN #25 capsule 03/17/20 Albuterol Sulf [Ventolin Hfa 2 puffs IH QID PRN 06/23/20 Inhaler] SUMAtriptan succinate [Sumatriptan 100 mg PO DAILY PRN 06/23/20 Succinate] - Allergies Allergies/Adverse Reactions: Allergies Allergy/AdvReac Type Severity Reaction Status Date / Time No Known Drug Allergies Allergy Verified 06/23/20 11:39 Review of Systems - Constitutional Constitutional: denies: Fever, Chills, Weakness, Diaphoresis, Night sweats - Eyes Eyes: denies: Pain, Blurred vision, Spots in vision, Field loss, Vision loss, Dipolpia - Ears, Nose & Throat Ears, Nose & Throat: denies: Ear pain, Vertigo, Nasal discharge, Nosebleeds, Sore throat, Bleeding gums - Cardiovascular Cariovascular: denies: Irregular heart rate, Palpitations, Chest pain, Edema, Lightheadedness, Syncope, Exertional dyspnea, Decr. exercise tolerance - Respiratory Respiratory: denies: Cough, Sputum production, Wheezing, Snoring, Hemoptysis, Orthopnea, SOB at rest, SOB with exertion - Gastrointestinal Gastrointestinal: reports: Abdominal pain, Diarrhea, Rectal bleeding, Black stools, Bloody stools, Nausea, Vomiting, Coffee grounds emesis. denies: Abdomi nal distention, Constipation, Change in bowel habits, Bile emesis - Genitourinary Genitourinary: denies: Dysuria, Frequency, Urgency, Hematuria, Incontinence, Fl ank pain, Urethral discharge - Musculoskeletal Musculoskeletal: denies: Muscle pain, Back pain, Muscle aches, Stiffness, Limited range of motion, Muscle weakness, Gout, Joint pain - Integumentary Integumentary: denies: Rash, Lesions, Acne - Neurological Neurological: denies: General weakness, Focal weakness, Headache, Dizziness, Numbness, Memory problems, Pre-existing deficit, Abnormal gait, Seizures, Incoordination, Slurred speech - Psychiatric Psychiatric: denies: Depression, Suicidal, Delusions, Hallucinations, Homicidal - Endocrine Endocrine: denies: Polydypsia - Hematologic/Lymphatic Hematologic/Lymphatic: denies: Anemia, Bruising, Blood clots, Lymphadenopathy, Bleeding tendencies Exam - Vital Signs Vital Signs: Vital Signs x48h Temp Pulse Resp BP Pulse Ox 06/23/20 15:30 57 L 10 L 115/72 97 06/23/20 15:06 62 15 117/68 99 06/23/20 14:30 61 13 126/71 96 06/23/20 14:07 36.8 C 56 L 21 116/75 98 06/23/20 13:00 82 15 117/67 97 06/23/20 12:30 60 13 123/94 H 99 06/23/20 12:23 36.8 C 06/23/20 12:01 64 18 130/93 H 97 06/23/20 11:44 36.6 C 62 16 137/94 H 96 - Physical Exam General Appearance: positive: No acute distress, Alert. negative: Lethargic Eyes Bilateral: positive: Normal inspection, PERRL, No lid inflammation ENT: positive: ENT inspection nml, No signs of dehydration. negative: Purulent nasal drainage Neck: positive: Nml inspection, Thyroid nml, Trachea midline. negative: Thyromegaly, Stiff neck, Tracheal deviation Respiratory: positive: Chest non-tender, No respiratory distress, Breath sounds nml. negative: Wheezes, Rales, Rhonchi Cardiovascular: positive: Regular rate & rhythm, No murmur. negative: Irregularly irregular, Tachycardia, Bradycardia, Systolic murmur, Diastolic murmur Peripheral Pulses: positive: 2+ Abdomen: positive: Non-tender, Nml bowel sounds, No distention. negative: Tenderness, Guarding, Rebound Back: positive: Nml inspection. negative: CVA tenderness (R), CVA tenderness (L) Skin: positive: Color nml, No rash, Warm, Dry. negative: Cyanosis, Diaphoresis, Pallor Extremities: positive: Non-tender, Full ROM, Nml appearance. negative: Calf tenderness, Denisse's sign/cords Neurologic/Psychiatric: positive: Oriented x3, Motor nml, Sensation nml. negative: Weakness, Sensory loss, Facial droop, Slurred/abnml speech, Depressed mood/affect Conclusion/Plan - Problem List (1) GI bleed Conclusion/Plan: Patient reported he has both vomiting blood and Blood stool in his diarrhea. His hemoglobin is 13.9 now. Patient is hx of alcohol abusive. We will order type and screen, H&H to monitor hemoglobin, Protonix twice daily, Consult with general surgeon, plan to have EGD first for patient tomorrow. Qualifiers: GI bleed type/associated pathology: unspecified gastrointestinal hemorrhage type Qualified Code(s): K92.2 - Gastrointestinal hemorrhage, unspecified (2) Alcohol abuse Conclusion/Plan: Patient has a history of alcohol abuse still, he continues drink alcohol on last night. Patient reported his father and uncle both from alcohol abuse. Strongly advised the patient quitted alcohol, patient is at [facility] protocol, patient started with an banana bag, Librium will schedule patient for withdrawal.Patient was given once of intravenous vitamin B1. (3) Alcoholic hepatitis Conclusion/Plan: Patient had elevated liver enzyme, likely caused by alcohol abuse.Continue laboratory monitoring, advised patient quitted alcohol Qualifiers: Ascites presence: without ascites Qualified Code(s): K70.10 - Alcoholic hepatitis without ascites (4) Seizure Conclusion/Plan: Patient has hx of seizure with alcohol withdrawal, will schedule Librium for patient, and Ativan 2 mg as needed for seizure. Patient is on seizure precaution - Lab Results Fish Bones: 06/23/20 14:50 06/23/20 11:50 Core Measures - Anticipated LOS I expect patient to be DC'd or transferred within 96 hours.: Yes - DVT/VTE - Prophylaxis VTE/DVT Device ordered at admit?: Yes VTE/DVT Prophylaxis med ordered at admit?: Yes
[2020-06-23] MEDS: ONDANSETRON 4 MG/2 ML VIAL IVP PRN (17:29)
[2020-06-23] MEDS: MORPHINE 2 MG/ML CARPUJECT IVP PRN (17:29)
[2020-06-23] MEDS: LORazepam 2 MG/ML VIAL IVP PRN ×4 (17:30→21:35)
[2020-06-23] MEDS: SODIUM CHLORIDE FLUSH 0.9% 10 ML SYRINGE IVP SCH ×2 (17:36→23:41)
[2020-06-23] MEDS: MULTIVITAMIN 10 ML, FOLIC ACID INJ 1 MG, THIAMINE INJ 100 MG, MAGNESIUM SULFATE 2 GM in... IV SCH ×5 (17:55)
[2020-06-23] MEDS ORDERED: LORazepam 2 MG/ML VIAL IVP PRN (18:10)
[2020-06-23] MEDS: ALBUTEROL NEB 2.5 MG/3 ML INH PRN (18:51)
[2020-06-23] MEDS: chlordiazePOXIDE 25 MG CAPSULE PO SCH ×2 (19:07→23:41)
[2020-06-23] MEDS: NICOTINE 14 MG PATCH TOP SCH (20:08)
[2020-06-23 21:09] LABS: EOSINOPHILS % (AUTO) 0.3 %; HGB - HEMOGLOBIN 14.4 g/dL (14.0-18.0); LYMPHOCYTES % (AUTO) 46.5 %; MEAN CORPUSCULAR HEMOGLOBIN 38.1 pg (27.0-31.0); MEAN CORPUSCULAR HGB CONC 36.5 g/dL (32.0-36.0); MEAN CORPUSCULAR VOLUME 104.5 fL (80.0-94.0); MEAN PLATELET VOLUME 11.2 fL (7.4-11.4); MONOCYTES % (AUTO) 4.5 %; NEUTROPHILS % (AUTO) 47.4 %; PLT - PLATELET COUNT 71 10^3/uL (130-450); RED BLOOD COUNT 3.78 10^6/uL (4.70-6.10); RED CELL DISTRIBUTION WIDTH 12.7 % (12.0-15.0); WHITE BLOOD COUNT 2.9 x10^3/uL (4.8-10.8)
[2020-06-23 21:45] LABS: ABNORMAL LYMPHS % (MANUAL) 0 %; BAND NEUTROPHILS % (MANUAL) 0 %
[2020-06-23] MEDS: PANTOPRAZOLE 40 MG VIAL IVP SCH (21:48)
[2020-06-23 22:02] LABS: BASOPHILS # (MANUAL) 0.1 10^3/uL (0-0.1); BASOPHILS % (MANUAL) 2 %; DIFFERENTIAL COMMENT MANUAL DIFFERENTIAL; LYMPHOCYTES # (MANUAL) 1.1 10^3/uL (1.5-3.5); LYMPHOCYTES % (MANUAL) 38 %; MONOCYTES # (MANUAL) 0.1 10^3/uL (0.0-1.0); PLATELET ESTIMATE, MANUAL DECREASED (<130,000) (NORMAL); RBC MORPHOLOGY (MULTIPLE) 1+ MACROCYTOSIS (NORMAL)
[2020-06-24] MEDS: LORazepam 2 MG/ML VIAL IVP PRN ×5 (04:00→16:12)
[2020-06-24] MEDS: MORPHINE 2 MG/ML CARPUJECT IVP PRN ×2 (04:00→09:15)
[2020-06-24] MEDS: ONDANSETRON 4 MG/2 ML VIAL IVP PRN ×2 (04:00→15:39)
[2020-06-24] MEDS: SODIUM CHLORIDE FLUSH 0.9% 10 ML SYRINGE IVP PRN ×2 (04:01→06:27)
[2020-06-24 05:28] LABS: MEAN CORPUSCULAR HGB CONC 35.7 g/dL (32.0-36.0); MEAN CORPUSCULAR VOLUME 103.7 fL (80.0-94.0); MEAN PLATELET VOLUME 11.8 fL (7.4-11.4); MONOCYTES % (AUTO) 5.5 %; NEUTROPHILS % (AUTO) 42.2 %; PLT - PLATELET COUNT 65 10^3/uL (130-450); RED BLOOD COUNT 3.78 10^6/uL (4.70-6.10); RED CELL DISTRIBUTION WIDTH 12.8 % (12.0-15.0); WHITE BLOOD COUNT 2.9 x10^3/uL (4.8-10.8)
[2020-06-24 05:35] LABS: ABNORMAL LYMPHS % (MANUAL) 0 %
[2020-06-24 06:11] LABS: BAND NEUTROPHILS % (MANUAL) 1 %; DIFFERENTIAL COMMENT MANUAL DIFFERENTIAL; LYMPHOCYTES # (MANUAL) 1.3 10^3/uL (1.5-3.5); LYMPHOCYTES % (MANUAL) 46 %; MONOCYTES # (MANUAL) 0.1 10^3/uL (0.0-1.0); PLATELET ESTIMATE, MANUAL DECREASED (<130,000) (NORMAL); RBC MORPHOLOGY (MULTIPLE) NORMAL APPEARANCE (NORMAL)
[2020-06-24] MEDS: NICOTINE 14 MG PATCH TOP SCH (06:27)
[2020-06-24] MEDS: chlordiazePOXIDE 25 MG CAPSULE PO SCH ×3 (06:27→18:25)
[2020-06-24] MEDS: PANTOPRAZOLE 40 MG VIAL IVP SCH ×2 (06:27→21:19)
[2020-06-24 06:43] LABS: CREATININE 0.8 mg/dL (0.6-1.2)
[2020-06-24 06:44] LABS: BILIRUBIN,TOTAL 2.3 mg/dL (0.2-1.0); CALCIUM 7.7 mg/dL (8.5-10.3)
[2020-06-24 06:46] LABS: ALBUMIN 3.1 g/dL (3.2-5.5); ALBUMIN/GLOBULIN RATIO 1.6 (1.0-2.2)
[2020-06-24] MEDS ORDERED: MULTIVITAMIN 10 ML, FOLIC ACID INJ 1 MG, THIAMINE INJ 100 MG, MAGNESIUM SULFATE 2 GM in... IV SCH ×5 (09:00)
[2020-06-24] MEDS: SODIUM CHLORIDE FLUSH 0.9% 10 ML SYRINGE IVP SCH ×2 (09:14→20:26)
[2020-06-24] MEDS: THIAMINE 100 MG TABLET PO SCH (09:15)
[2020-06-24] MEDS: ALBUTEROL NEB 2.5 MG/3 ML INH PRN (09:33)
[2020-06-24 10:47] LABS: MEAN CORPUSCULAR HGB CONC 34.7 g/dL (32.0-36.0); MEAN CORPUSCULAR VOLUME 103.9 fL (80.0-94.0); MEAN PLATELET VOLUME 11.5 fL (7.4-11.4); PLT - PLATELET COUNT 58 10^3/uL (130-450); RED BLOOD COUNT 3.61 10^6/uL (4.70-6.10); RED CELL DISTRIBUTION WIDTH 12.7 % (12.0-15.0); WHITE BLOOD COUNT 3.8 x10^3/uL (4.8-10.8)
[2020-06-24 10:49] LABS: BASOPHILS # (AUTO) 0.3 10^3/uL (0.0-0.1); BASOPHILS % (AUTO) 0.6 %; EOSINOPHILS # (AUTO) 0.7 10^3/uL (0.0-0.7); EOSINOPHILS % (AUTO) 1.5 %; LYMPHOCYTES # (AUTO) 2.1 10^3/uL (1.5-3.5); LYMPHOCYTES % (AUTO) 43.7 %; MONOCYTES # (AUTO) 0.3 10^3/uL (0.0-1.0); MONOCYTES % (AUTO) 5.3 %; NEUTROPHILS # (AUTO) 2.3 10^3/uL (1.5-6.6); NEUTROPHILS % (AUTO) 48.7 %
--- NOTE | 2020-06-24 11:05 | PHARMACY PROGRESS NOTE ---
- Best Possible Medication History Admit Date and Time: 06/23/20 1600 Processed by: Pharmacy Medication History completed: Yes Patient Interview: Pt unable to participate Secondary Source(s): Physician records, Pharmacy records As the person ultimately responsible for medication therapy, providers are able to order a medication from an existing home medication list in [facility] via the "Reconcile Routine" prior to Confirmation of that medication by software support representative. Such practice is discouraged except when the physician, in their clinical judgment, deems that a medical need exists for a medication without regard to previous use.
[2020-06-24] MEDS: MULTIVITAMIN 10 ML, FOLIC ACID INJ 1 MG, THIAMINE INJ 100 MG, MAGNESIUM SULFATE 2 GM in... IV SCH ×5 (11:46)
--- NOTE | 2020-06-24 15:04 | CONSULTATION NOTE ---
Referring Provider Name of Referring Provider:: Conrad Consult Date: 06/24/20 Chief Complaint - Chief Complaint Chief Complaint: Vomiting and diarrhea History of Present Illness - Admitted From Admitted From:: ED - History Obtained From Records Reviewed: Provider's notes History obtained from: Providers and patient Exam Limitations: None - History of Present Illness HPI Comment/Other: Hemal is an unfortunate 34-year-old gentleman who presented to the emergency room last evening complaining of abdominal pain. He reports that he had some nausea and vomiting yesterday that became worse over the day until he was not able to keep liquids down. He presented to the emergency room.He has a history of significant alcohol use and abuse. He has a history of having had seizures related to alcohol withdrawal.He reports some blood in the vomitus.He currently lives with his girlfriend in [place].He reports that he only drinks beer currently.I have been asked to see him regarding the possibility of an EGD.He had a CT scan in the emergency room that did not reveal any evidence of varices. History - Past Medical History Cardiovascular: reports: None Respiratory: reports: None Neuro: reports: Seizure disorder Endocrine/Autoimmune: reports: None GI: reports: GERD, Chronic diarrhea : reports: None HEENT: reports: None Psych: reports: None Musculoskeletal: reports: None Derm: reports: None MRSA Hx?: No - Past Surgical History General: reports: Colonoscopy HEENT: reports: Tonsil/Adenoidectomy - Family & Social History Family History Comment/Other: Father of complications of alcoholism when he was in his 60s. Complication included acute alcohol poisoning. Mother is alive And she also has problems with alcoholism. One sister is alive and well positive for diabetes. Positive for heart disease. Negative for cancer. No children Social History Notes: Social history born in [facility]. Living on [facility] since the age of 1. Endorses the use of cannabis, but no heroin, speed, methamphetamines. Drinks on a daily basis.12 hard ciders a day. Never smoked. Unable to hold down a job. without any children.Currently living with his girlfriend in [place]. She does not have any problems with alcoholism or recreational substance abuse. - Substance History Use: Uses substance without health or social issues: Cannabis - POLST Patient has POLST: No POLST Status: Full Code Meds/Allgy - Home Medications Home Medications: Ambulatory Orders Medication Instructions Recorded Confirmed tiZANidine [Zanaflex] 4 mg PO TID PRN 06/06/17 06/24/20 Ondansetron Odt [Zofran] 4 mg TL Q6H PRN #10 tablet 03/03/20 06/24/20 Famotidine 20 mg PO DAILY #30 tablet 03/17/20 06/24/20 Albuterol Sulf [Ventolin Hfa 2 puffs INH QID PRN 06/23/20 06/24/20 Inhaler] SUMAtriptan succinate [Sumatriptan 100 mg PO DAILY PRN 06/23/20 06/24/20 Succinate] Gabapentin [Neurontin] 800 mg PO QID 06/24/20 06/24/20 - Allergies Allergies/Adverse Reactions: Allergies Allergy/AdvReac Type Severity Reaction Status Date / Time No Known Drug Allergies Allergy Verified 06/23/20 11:39 Review of Systems - Constitutional Constitutional: denies: Fatigue, Fever, Chills - Eyes Eyes: denies: Pain, Blurred vision - Ears, Nose & Throat Ears, Nose & Throat: denies: Tinnitus, Vertigo - Cardiovascular Cariovascular: denies: Irregular heart rate, Palpitations - Respiratory Respiratory: denies: Wheezing, Snoring - Gastrointestinal Gastrointestinal: reports: Abdominal pain. denies: Abdominal distention, Consti pation - Genitourinary Genitourinary: denies: Dysuria, Frequency - Musculoskeletal Musculoskeletal: denies: Muscle pain, Back pain - Integumentary Integumentary: denies: Rash - Neurological Neurological: denies: General weakness - All Other Systems All Other Systems: reports: Reviewed and negative Exam - Vital Signs Reviewed Vital Signs: Yes Vital Signs: Vital Signs x48h Temp Pulse Pulse Resp BP Pulse Ox 06/24/20 09:33 72 10 L 06/24/20 08:00 36.7 C 64 152/131 H 96 - Physical Exam General Appearance: positive: No acute distress, Alert Eyes Bilateral: positive: PERRL, EOMI Neck: positive: Nml inspection, Trachea midline Respiratory: positive: Chest non-tender, No respiratory distress, Breath sounds nml Cardiovascular: positive: Regular rate & rhythm Peripheral Pulses: positive: 1+ Abdomen: positive: Non-tender. negative: Guarding, Rebound Neurologic/Psychiatric: positive: Oriented x3, Other (Trembling) Conclusion and Plan - Lab Results Laboratory Results 06/24/20 09:05: Magnesium 2.2 06/24/20 09:05: WBC 3.8 L, RBC 3.61 L, Hgb 13.0 L, Hct 37.5 L, MCV 103.9 H, MCH 36.0 H, MCHC 34.7, RDW 12.7, Plt Count 58 L, MPV 11.5 H, Neut # (Auto) 2.3, Lymph # (Auto) 2.1, Garvin # (Auto) 0.3, Eos # (Auto) 0.7, Baso # (Auto) 0.3 H, Absolute Nucleated RBC 0.00, Nucleated RBC % 0.0 06/24/20 04:35: Sodium 138, Potassium 3.7, Chloride 101, Carbon Dioxide 23, Anion Gap 14.0 H, BUN 12, Creatinine 0.8, Estimated GFR (MDRD) 110, Glucose 83, Calcium 7.7 L, Total Bilirubin 2.3 H, AST 202 H, ALT 94 H, Alkaline Phosphatase 52, Total Protein 5.0 L, Albumin 3.1 L, Globulin 1.9 L, Albumin/Globulin Ratio 1.6 06/24/20 04:35: WBC 2.9 L, RBC 3.78 L, Hgb 14.0, Hct 39.2 L, MCV 103.7 H, MCH 37.0 H, MCHC 35.7, RDW 12.8, Plt Count 65 L, MPV 11.8 H, Neut # (Auto) Not Reportable, Lymph # (Auto) Not Reportable, [place] # (Auto) Not Reportable, Eos # (Auto) Not Reportable, Baso # (Auto) Not Reportable, Absolute Nucleated RBC Not Reportable, Total Counted 100, Band Neuts % (Manual) 1, Abnorm Lymph % (Manual) 0, Nucleated RBC % Not Reportable, Neutrophils # (Manual) 1.4 L, Lymphocytes # (Manual) 1.3 L, Monocytes # (Manual) 0.1, Eosinophils # (Manual) 0.0, Basophils # (Manual) 0.0, Differential Comment MANUAL DIFFERENTIAL, Platelet Estimate DECREASED (<130,000), RBC Morph Micro Appear NORMAL APPEARANCE 06/23/20 21:02: WBC 2.9 L, RBC 3.78 L, Hgb 14.4, Hct 39.5 L, MCV 104.5 H, MCH 38.1 H, MCHC 36.5 H, RDW 12.7, Plt Count 71 L, MPV 11.2, Neut # (Auto) Not Reportable, Lymph # (Auto) Not Reportable, [place] # (Auto) Not Reportable, Eos # (Auto) Not Reportable, Baso # (Auto) Not Reportable, Absolute Nucleated RBC Not Reportable, Total Counted 100, Band Neuts % (Manual) 0, Abnorm Lymph % (Manual) 0, Nucleated RBC % Not Reportable, Neutrophils # (Manual) 1.6, Lymphocytes # (Manual) 1.1 L, Monocytes # (Manual) 0.1, Eosinophils # (Manual) 0.0, Basophils # (Manual) 0.1, Differential Comment MANUAL DIFFERENTIAL, Platelet Estimate DECREASED (<130,000), RBC Morph Micro Appear 1+ MACROCYTOSIS 06/23/20 14:50: WBC 2.4 L, RBC 3.83 L, Hgb 13.9 L, Hct 39.7 L, MCV 103.7 H, MCH 36.3 H, MCHC 35.0, RDW 12.9, Plt Count 84 L, MPV 12.9 H 06/23/20 13:05: Urine Color YELLOW, Urine Clarity CLEAR, Urine pH 7.0, Ur Specific [place] 1.020, Urine Protein NEGATIVE, Urine Glucose (UA) NEGATIVE, Urine Ketones NEGATIVE, Urine Occult Blood NEGATIVE, Urine Nitrite NEGATIVE, Urine Bilirubin NEGATIVE, Urine Urobilinogen 0.2 (NORMAL), Ur Leukocyte Esterase NEGATIVE, Ur Microscopic Review NOT INDICATED, Urine Culture Comments NOT INDICATED 06/23/20 12:45: Blood Type AB POSITIVE, Antibody Screen NEGATIVE 06/23/20 12:20: Whole Blood INR 1.1 06/23/20 11:50: Blood Type Recheck AB POSITIVE 06/23/20 11:50: Troponin I High Sens 7.2 06/23/20 11:50: Total Creatine Kinase 104 06/23/20 11:50: Sodium 138, Potassium 4.7, Chloride 100 L, Carbon Dioxide 26, Anion Gap 12.0, BUN 17, Creatinine 1.0, Estimated GFR (MDRD) 85 L, Glucose 97, Calcium 8.6, Total Bilirubin 1.7 H, AST 330 H, ALT 122 H, Alkaline Phosphatase 62, Total Protein 6.1 L, Albumin 4.0, Globulin 2.2, Albumin/Globulin Ratio 1.9, Lipase 49, Ethyl Alcohol 201.9 06/23/20 11:50: WBC 2.8 L, RBC 4.34 L, Hgb 15.4, Hct 44.6, MCV 103.7 H, MCH 36.0 H, MCHC 34.5, RDW 12.7, Plt Count 111 L, MPV 11.3, Neut # (Auto) Not Reportab le, Lymph # (Auto) Not Reportable, Garvin # (Auto) Not Reportable, Eos # (Auto) Not Reportable, Baso # (Auto) Not Reportable, Absolute Nucleated RBC Not Reportable, Total Counted 100, Band Neuts % (Manual) 1, Abnorm Lymph % (Manual) 0, Nucleated RBC % Not Reportable, Neutrophils # (Manual) 1.5, Lymphocytes # (Manual) 1.1 L, Monocytes # (Manual) 0.1, Eosinophils # (Manual) 0.0, Basophils # (Manual) 0.1, Differential Comment MANUAL DIFFERENTIAL, WBC Morphology NORMAL APPEARANCE, Platelet Estimate DECREASED (<130,000), Platelet Morphology NORMAL APPEARANCE, RBC Morph Micro Appear 1+ MACROCYTOSIS Laboratory Results WBC 3.7 x10^3/uL (4.8-10.8) L 06/24/20 14:50 RBC 3.83 10^6/uL (4.70-6.10) L 06/24/20 14:50 Hgb 14.1 g/dL (14.0-18.0) 06/24/20 14:50 Hct 40.1 % (42.0-52.0) L 06/24/20 14:50 MCV 104.7 fL (80.0-94.0) H 06/24/20 14:50 MCH 36.8 pg (27.0-31.0) H 06/24/20 14:50 MCHC 35.2 g/dL (32.0-36.0) 06/24/20 14:50 RDW 12.7 % (12.0-15.0) 06/24/20 14:50 Plt Count 62 10^3/uL (130-450) L 06/24/20 14:50 MPV 10.7 fL (7.4-11.4) 06/24/20 14:50 Neut # (Auto) 2.3 10^3/uL (1.5-6.6) 06/24/20 14:50 Lymph # (Auto) 1.2 10^3/uL (1.5-3.5) L 06/24/20 14:50 Garvin # (Auto) 0.2 10^3/uL (0.0-1.0) 06/24/20 14:50 Eos # (Auto) 0.0 10^3/uL (0.0-0.7) 06/24/20 14:50 Baso # (Auto) 0.0 10^3/uL (0.0-0.1) 06/24/20 14:50 Absolute Nucleated RBC 0.00 x10^3/uL 06/24/20 14:50 Total Counted 100 06/24/20 04:35 Band Neuts % (Manual) 1 % (0-10) 06/24/20 04:35 Abnorm Lymph % (Manual) 0 % 06/24/20 04:35 Nucleated RBC % 0.0 /100WBC 06/24/20 14:50 Neutrophils # (Manual) 1.4 10^3/uL (1.5-6.6) L 06/24/20 04:35 Lymphocytes # (Manual) 1.3 10^3/uL (1.5-3.5) L 06/24/20 04:35 Monocytes # (Manual) 0.1 10^3/uL (0.0-1.0) 06/24/20 04:35 Eosinophils # (Manual) 0.0 10^3/uL (0-0.7) 06/24/20 04:35 Basophils # (Manual) 0.0 10^3/uL (0-0.1) 06/24/20 04:35 Differential Comment MANUAL DIFFERENTIAL 06/24/20 04:35 WBC Morphology NORMAL APPEARANCE (NORMAL) 06/23/20 11:50 Platelet Estimate DECREASED (<130,000) (NORMAL) 06/24/20 04:35 Platelet Morphology NORMAL APPEARANCE (NORMAL) 06/23/20 11:50 RBC Morph Micro Appear NORMAL APPEARANCE (NORMAL) 06/24/20 04:35 Whole Blood INR 1.1 (0.8-1.2) 06/23/20 12:20 Sodium 138 mmol/L (135-145) 06/24/20 04:35 Potassium 3.7 mmol/L (3.5-5.0) 06/24/20 04:35 Chloride 101 mmol/L (101-111) 06/24/20 04:35 Carbon Dioxide 23 mmol/L (21-32) 06/24/20 04:35 Anion Gap 14.0 (6-13) H 06/24/20 04:35 BUN 12 mg/dL (6-20) 06/24/20 04:35 Creatinine 0.8 mg/dL (0.6-1.2) 06/24/20 04:35 Estimated GFR (MDRD) 110 (>89) 06/24/20 04:35 Glucose 83 mg/dL (70-100) 06/24/20 04:35 Calcium 7.7 mg/dL (8.5-10.3) L 06/24/20 04:35 Magnesium 2.2 mg/dL (1.7-2.8) 06/24/20 09:05 Total Bilirubin 2.3 mg/dL (0.2-1.0) H 06/24/20 04:35 AST 202 IU/L (10-42) H 06/24/20 04:35 ALT 94 IU/L (10-60) H 06/24/20 04:35 Alkaline Phosphatase 52 IU/L (42-121) 06/24/20 04:35 Total Creatine Kinase 104 IU/L (22-269) 06/23/20 11:50 Troponin I High Sens 7.2 ng/L (2.3-19.7) 06/23/20 11:50 Total Protein 5.0 g/dL (6.7-8.2) L 06/24/20 04:35 Albumin 3.1 g/dL (3.2-5.5) L 06/24/20 04:35 Globulin 1.9 g/dL (2.1-4.2) L 06/24/20 04:35 Albumin/Globulin Ratio 1.6 (1.0-2.2) 06/24/20 04:35 Lipase 49 U/L (22-51) 06/23/20 11:50 Urine Color YELLOW 06/23/20 13:05 Urine Clarity CLEAR (CLEAR) 06/23/20 13:05 Urine pH 7.0 PH (5.0-7.5) 06/23/20 13:05 Ur Specific [place] 1.020 (1.002-1.030) 06/23/20 13:05 Urine Protein NEGATIVE mg/dL (NEGATIVE) 06/23/20 13:05 Urine Glucose (UA) NEGATIVE mg/dL (NEGATIVE) 06/23/20 13:05 Urine Ketones NEGATIVE mg/dL (NEGATIVE) 06/23/20 13:05 Urine Occult Blood NEGATIVE (NEGATIVE) 06/23/20 13:05 Urine Nitrite NEGATIVE (NEGATIVE) 06/23/20 13:05 Urine Bilirubin NEGATIVE (NEGATIVE) 06/23/20 13:05 Urine Urobilinogen 0.2 (NORMAL) E.U./dL (NORMAL) 06/23/20 13:05 Ur Leukocyte Esterase NEGATIVE (NEGATIVE) 06/23/20 13:05 Ur Microscopic Review NOT INDICATED 06/23/20 13:05 Urine Culture Comments NOT INDICATED 06/23/20 13:05 Ethyl Alcohol 201.9 mg/dL 06/23/20 11:50 Blood Type AB POSITIVE 06/23/20 12:45 Blood Type Recheck AB POSITIVE 06/23/20 11:50 Antibody Screen NEGATIVE 06/23/20 12:45 - Diagnosis Diagnosis: Vomiting and upper GI hemorrhage in the setting of a known history of EtOH use and abuse. - Plan Plan: I agree with the plan for EGD. We have discussed the risks and benefits of the procedure and the patient has expressed a desire to complete it. Verbal and written consent were obtained.
[2020-06-24 15:07] LABS: BASOPHILS % (AUTO) 0.8 %; EOSINOPHILS % (AUTO) 0.8 %; HGB - HEMOGLOBIN 14.1 g/dL (14.0-18.0); LYMPHOCYTES # (AUTO) 1.2 10^3/uL (1.5-3.5); LYMPHOCYTES % (AUTO) 32.1 %; MEAN CORPUSCULAR HEMOGLOBIN 36.8 pg (27.0-31.0); MEAN CORPUSCULAR HGB CONC 35.2 g/dL (32.0-36.0); MEAN CORPUSCULAR VOLUME 104.7 fL (80.0-94.0); MEAN PLATELET VOLUME 10.7 fL (7.4-11.4); MONOCYTES # (AUTO) 0.2 10^3/uL (0.0-1.0); MONOCYTES % (AUTO) 4.6 %; NEUTROPHILS # (AUTO) 2.3 10^3/uL (1.5-6.6); NEUTROPHILS % (AUTO) 61.4 %; PLT - PLATELET COUNT 62 10^3/uL (130-450); RED BLOOD COUNT 3.83 10^6/uL (4.70-6.10); RED CELL DISTRIBUTION WIDTH 12.7 % (12.0-15.0); WHITE BLOOD COUNT 3.7 x10^3/uL (4.8-10.8)
--- NOTE | 2020-06-24 15:18 | ANESTHESIA ---
Pre-Anesthesia VS, & Labs - Diagnosis vomiting and diarrhea - Procedure EGD Vital Signs: Temp Pulse Resp BP Pulse Ox 36.7 C 66 10 L 152/131 H 96 06/24/20 08:00 06/24/20 14:30 06/24/20 14:30 06/24/20 08:00 06/24/20 08:00 Height: 5 ft 9 in Weight (kg): 69 kg Body Mass Index: 22.4 BMI Classification: Healthy weight - NPO >8 hours - Lab Results Current Lab Results: Laboratory Tests 06/24/20 09:05: Magnesium 2.2 06/24/20 09:05: WBC 3.8 L, RBC 3.61 L, Hgb 13.0 L, Hct 37.5 L, MCV 103.9 H, MCH 36.0 H, MCHC 34.7, RDW 12.7, Plt Count 58 L, MPV 11.5 H, Neut # (Auto) 2.3, Lymph # (Auto) 2.1, [place] # (Auto) 0.3, Eos # (Auto) 0.7, Baso # (Auto) 0.3 H, Absolute Nucleated RBC 0.00, Nucleated RBC % 0.0 06/24/20 04:35: Sodium 138, Potassium 3.7, Chloride 101, Carbon Dioxide 23, An ion Gap 14.0 H, BUN 12, Creatinine 0.8, Estimated GFR (MDRD) 110, Glucose 83, Calcium 7.7 L, Total Bilirubin 2.3 H, AST 202 H, ALT 94 H, Alkaline Phosphatase 52, Total Protein 5.0 L, Albumin 3.1 L, Globulin 1.9 L, Albumin/Globulin Ratio 1.6 06/24/20 04:35: WBC 2.9 L, RBC 3.78 L, Hgb 14.0, Hct 39.2 L, MCV 103.7 H, MCH 37.0 H, MCHC 35.7, RDW 12.8, Plt Count 65 L, MPV 11.8 H, Neut # (Auto) Not Reportable, Lymph # (Auto) Not Reportable, [place] # (Auto) Not Reportable, Eos # (Auto) Not Reportable, Baso # (Auto) Not Reportable, Absolute Nucleated RBC Not Reportable, Total Counted 100, Band Neuts % (Manual) 1, Abnorm Lymph % (Manual) 0, Nucleated RBC % Not Reportable, Neutrophils # (Manual) 1.4 L, Lymphocytes # (Manual) 1.3 L, Monocytes # (Manual) 0.1, Eosinophils # (Manual) 0.0, Basophils # (Manual) 0.0, Differential Comment MANUAL DIFFERENTIAL, Platelet Estimate DECREASED (<130,000), RBC Morph Micro Appear NORMAL APPEARANCE 06/23/20 21:02: WBC 2.9 L, RBC 3.78 L, Hgb 14.4, Hct 39.5 L, MCV 104.5 H, MCH 38.1 H, MCHC 36.5 H, RDW 12.7, Plt Count 71 L, MPV 11.2, Neut # (Auto) Not Reportable, Lymph # (Auto) Not Reportable, [place] # (Auto) Not Reportable, Eos # (Auto) Not Reportable, Baso # (Auto) Not Reportable, Absolute Nucleated RBC Not Reportable, Total Counted 100, Band Neuts % (Manual) 0, Abnorm Lymph % (Manual) 0, Nucleated RBC % Not Reportable, Neutrophils # (Manual) 1.6, Lymphocytes # (Manual) 1.1 L, Monocytes # (Manual) 0.1, Eosinophils # (Manual) 0.0, Basophils # (Manual) 0.1, Differential Comment MANUAL DIFFERENTIAL, Platelet Estimate DECREASED (<130,000), RBC Morph Micro Appear 1+ MACROCYTOSIS 06/23/20 14:50: WBC 2.4 L, RBC 3.83 L, Hgb 13.9 L, Hct 39.7 L, MCV 103.7 H, MCH 36.3 H, MCHC 35.0, RDW 12.9, Plt Count 84 L, MPV 12.9 H 06/23/20 12:45: Blood Type AB POSITIVE, Antibody Screen NEGATIVE 06/23/20 12:20: Whole Blood INR 1.1 06/23/20 11:50: Blood Type Recheck AB POSITIVE 06/23/20 11:50: Troponin I High Sens 7.2 06/23/20 11:50: Total Creatine Kinase 104 06/23/20 11:50: Sodium 138, Potassium 4.7, Chloride 100 L, Carbon Dioxide 26, Anion Gap 12.0, BUN 17, Creatinine 1.0, Estimated GFR (MDRD) 85 L, Glucose 97, Calcium 8.6, Total Bilirubin 1.7 H, AST 330 H, ALT 122 H, Alkaline Phosphatase 62, Total Protein 6.1 L, Albumin 4.0, Globulin 2.2, Albumin/Globulin Ratio 1.9, Lipase 49, Ethyl Alcohol 201.9 06/23/20 11:50: WBC 2.8 L, RBC 4.34 L, Hgb 15.4, Hct 44.6, MCV 103.7 H, MCH 36.0 H, MCHC 34.5, RDW 12.7, Plt Count 111 L, MPV 11.3, Neut # (Auto) Not Reportable, Lymph # (Auto) Not Reportable, [place] # (Auto) Not Reportable, Eos # (Auto) Not Reportable, Baso # (Auto) Not Reportable, Absolute Nucleated RBC Not Reportable, Total Counted 100, Band Neuts % (Manual) 1, Abnorm Lymph % (Manual) 0, Nucleated RBC % Not Reportable, Neutrophils # (Manual) 1.5, Lymphocytes # (Manual) 1.1 L, Monocytes # (Manual) 0.1, Eosinophils # (Manual) 0.0, Basophils # (Manual) 0.1, Differential Comment MANUAL DIFFERENTIAL, WBC Morphology NORMAL APPEARANCE, Platelet Estimate DECREASED (<130,000), Platelet Morphology NORMAL APPEARANCE, RBC Morph Micro Appear 1+ MACROCYTOSIS Fish Bones: 06/24/20 09:05 06/24/20 04:35 Home Medications and Allergies Home Medications: Ambulatory Orders Albuterol Sulf [Ventolin Hfa Inhaler] 2 puffs INH QID PRN 06/23/20 SUMAtriptan succinate [Sumatriptan Succinate] 100 mg PO DAILY PRN 06/23/20 Gabapentin [Neurontin] 800 mg PO QID 06/24/20 Active Medications Acetaminophen (Tylenol) 650 mg PO Q4HR PRN PRN Reason: Pain or Fever > 38C (100.4F) Albuterol () 2.5 mg INH RTQ4H PRN PRN Reason: Wheezing Last Admin: 06/24/20 09:33 Dose: 2.5 mg Documented by: Chlordiazepoxide HCl (Librium) 25 mg PO Q6HR DANYA Last Admin: 06/24/20 13:05 Dose: 25 mg Documented by: Multivitamins 10 ml/ Folic Acid 1 mg/ Thiamine HCl 100 mg / Magnesium Sulfate 2 gm/Sodium Chloride 1,015.2 mls @ 100 mls/hr IV DAILY [facility] Stop: 06/24/20 19:10 Last Admin: 06/24/20 11:46 Dose: 100 mls/hr Documented by: Potassium Chloride/Dextrose/Sod Cl (D5.45ns W/20 Meq Kcl) 1,000 mls @ 100 mls/hr IV .Q10H [facility] Stop: 06/25/20 05:59 Lorazepam (Ativan Inj (Vial)) 1 mg IVP Q30M PRN; Protocol PRN Reason: CIWA >8 Last Admin: 06/24/20 13:01 Dose: 1 mg Documented by: Lorazepam (Ativan Inj (Vial)) 2 mg IVP Q2H PRN PRN Reason: Seizure Morphine Sulfate (Morphine (Carpuject)) 2 mg IVP Q2HR PRN PRN Reason: Pain 8 to 10 Last Admin: 06/24/20 09:15 Dose: 2 mg Documented by: Nicotine (Nicoderm) 1 patch TOP DAILY [facility] Last Admin: 06/24/20 06:27 Dose: 1 patch Documented by: Ondansetron HCl (Zofran Inj) 4 mg IVP Q6HR PRN PRN Reason: Nausea / Vomiting Last Admin: 06/24/20 04:00 Dose: 4 mg Documented by: Pantoprazole Sodium (Protonix) 40 mg IVP BID [facility] Last Admin: 06/24/20 06:27 Dose: 40 mg Documented by: Prochlorperazine Edisylate (Compazine Inj) 10 mg IVP Q6HR PRN PRN Reason: Nausea / Vomiting Last Admin: 06/24/20 09:14 Dose: 10 mg Documented by: Sodium Chloride (Normal Saline Flush 0.9%) 10 ml IVP PRN PRN PRN Reason: NEEDED PER PROVIDER ORDERS Last Admin: 06/24/20 06:27 Dose: 30 ml Documented by: Sodium Chloride (Normal Saline Flush 0.9%) 10 ml IVP 0100,0900,1700 [facility] Last Admin: 06/24/20 09:14 Dose: 20 ml Documented by: Thiamine HCl (Vitamin B-1) 100 mg PO DAILY [facility] Last Admin: 06/24/20 09:15 Dose: 100 mg Documented by: tiZANidine [Zanaflex] 4 mg PO TID PRN 06/06/17 Albuterol Sulf [Ventolin Hfa Inhaler] 2 puffs INH QID PRN 06/23/20 SUMAtriptan succinate [Sumatriptan Succinate] 100 mg PO DAILY PRN 06/23/20 Gabapentin [Neurontin] 800 mg PO QID 06/24/20 Allergies/Adverse Reactions: Allergies Allergy/AdvReac Type Severity Reaction Status Date / Time No Known Drug Allergies Allergy Verified 06/23/20 11:39 Anes History & Medical History - Anesthetic History Anesthesia Complications: reports: No previous complications - Medical History Cardiovascular: reports: None Pulmonary: reports: None Gastrointestinal: reports: GERD, Chronic diarrhea Urinary: reports: None Neuro: reports: Seizure disorder Musculoskeletal: reports: None Endocrine/Autoimmune: reports: None Blood Disorders: reports: None Skin: reports: None Smoking Status: Never smoker - Surgical History General: Colonoscopy Eyes Ears Nose Throat (EENT): Tonsil/Adenoidectomy Exam General: Alert Dental: WNL Neck Mobility: Normal Thyromental Distance: greater than 6 cm Respiratory: Lungs clear Cardiovascular: Regular rate, Normal S1, Normal S2 Plan Anesthesia Type: MAC Consent for Procedure(s) Verified and Reviewed: Yes Code Status: Attempt Resuscitation ASA classification: 2-Mild systemic disease Is this case an emergency?: No
[2020-06-24] MEDS: ACETAMINOPHEN 325 MG TABLET PO PRN (15:39)
[2020-06-24] MEDS ORDERED: PROPOFOL 500 MG/50 ML 500 MG/50 ML VIAL ONE (16:08)
[2020-06-24] MEDS ORDERED: LIDO GARGLE 30 ML BOTTLE PO ONE (17:56)
[2020-06-24] MEDS ORDERED: LIDO GARGLE 30 ML BOTTLE ONE (17:59)
--- NOTE | 2020-06-24 18:04 | PROVIDER PROGRESS NOTE ---
Subjective - Prog Note Date Prog Note Date: 06/24/20 - Subjective Pt reports feeling: Improved Subjective: Patient reported he has no vomiting of the blood on today but he still has some dark stool. Patient right now is still at EGD procedure. Current Medications - Current Medications Current Medications: Active Medications Acetaminophen (Tylenol) 650 mg PO Q4HR PRN PRN Reason: Pain or Fever > 38C (100.4F) Last Admin: 06/25/20 08:30 Dose: 650 mg Documented by: Albuterol () 2.5 mg INH RTQ4H PRN PRN Reason: Wheezing Last Admin: 06/25/20 07:51 Dose: 2.5 mg Documented by: Chlordiazepoxide HCl (Librium) 25 mg PO Q6HR DANYA Last Admin: 06/25/20 11:04 Dose: 25 mg Documented by: Lorazepam (Ativan Inj (Vial)) 1 mg IVP Q30M PRN; Protocol PRN Reason: CIWA >8 Last Admin: 06/25/20 13:28 Dose: 1 mg Documented by: Lorazepam (Ativan Inj (Vial)) 2 mg IVP Q2H PRN PRN Reason: Seizure Nicotine (Nicoderm) 1 patch TOP DAILY [facility] Last Admin: 06/25/20 08:34 Dose: 1 patch Documented by: Ondansetron HCl (Zofran Inj) 4 mg IVP Q6HR PRN PRN Reason: Nausea / Vomiting Last Admin: 06/25/20 08:33 Dose: 4 mg Documented by: Pantoprazole Sodium (Protonix) 40 mg IVP BID [facility] Last Admin: 06/25/20 08:30 Dose: 40 mg Documented by: Prochlorperazine Edisylate (Compazine Inj) 10 mg IVP Q6HR PRN PRN Reason: Nausea / Vomiting Last Admin: 06/24/20 09:14 Dose: 10 mg Documented by: Sodium Chloride (Normal Saline Flush 0.9%) 10 ml IVP PRN PRN PRN Reason: NEEDED PER PROVIDER ORDERS Last Admin: 06/24/20 06:27 Dose: 30 ml Documented by: Sodium Chloride (Normal Saline Flush 0.9%) 10 ml IVP 0100,0900,1700 [facility] Last Admin: 06/25/20 08:34 Dose: 10 ml Documented by: Sucralfate (Carafate) 1 gm PO 0700,1100,1600,2200 [facility] Last Admin: 06/25/20 10:58 Dose: 1 gm Documented by: Thiamine HCl (Vitamin B-1) 100 mg PO DAILY [facility] Last Admin: 06/25/20 08:33 Dose: 100 mg Documented by: tiZANidine [Zanaflex] 4 mg PO TID PRN 06/06/17 Albuterol Sulf [Ventolin Hfa Inhaler] 2 puffs INH QID PRN 06/23/20 SUMAtriptan succinate [Sumatriptan Succinate] 100 mg PO DAILY PRN 06/23/20 Gabapentin [Neurontin] 800 mg PO QID 06/24/20 Objective - Vital Signs/Intake & Output Vital Signs: Vital Signs x48h Temp Pulse Pulse Resp BP Pulse Ox 06/24/20 16:00 36.5 C 60 22 130/72 95 06/24/20 14:30 66 10 L Intake & Output: Intake & Output 06/21/20 06/22/20 06/23/20 06/24/20 23:59 23:59 23:59 23:59 Intake Total 2288 1000 Output Total 550 2250 Balance 1738 -1250 - Objective General Appearance: positive: No acute distress, Alert. negative: Lethargic Eyes Bilateral: positive: Normal inspection, PERRL, No lid inflammation ENT: positive: ENT inspection nml, No signs of dehydration. negative: Purulent nasal drainage Neck: positive: Nml inspection, Thyroid nml, Trachea midline. negative: Thyromegaly, Stiff neck, Tracheal deviation Respiratory: positive: Chest non-tender, No respiratory distress. negative: Wheezes, Rales, Rhonchi Cardiovascular: positive: Regular rate & rhythm, No murmur. negative: Irregularly irregular, Tachycardia, Bradycardia, Systolic murmur, Diastolic murmur Peripheral Pulses: 2+ Radial (R), 2+ Radial (L) Abdomen: positive: Non-tender, Nml bowel sounds, No distention. negative: Tenderness, Guarding, Rebound Back: positive: Nml inspection. negative: CVA tenderness (R), CVA tenderness (L) Skin: positive: Color nml, No rash, Warm, Dry. negative: Cyanosis, Diaphoresis, Pallor Extremities: positive: Non-tender, Full ROM, Nml appearance. negative: Calf tenderness Neurologic/Psychiatric: positive: Oriented x3, Motor nml, Sensation nml. negative: Weakness, Sensory loss, Facial droop, Slurred/abnml speech - Lab Results Fish Bones: 06/25/20 05:25 06/25/20 05:25 Other Labs: Lab Results x24hrs 06/24/20 06/24/20 06/24/20 Range/Units 14:50 09:05 09:05 WBC 3.7 L 3.8 L (4.8-10.8) x10^3/uL RBC 3.83 L 3.61 L (4.70-6.10) 10^6/uL Hgb 14.1 13.0 L (14.0-18.0) g/dL Hct 40.1 L 37.5 L (42.0-52.0) % MCV 104.7 H 103.9 H (80.0-94.0) fL MCH 36.8 H 36.0 H (27.0-31.0) pg MCHC 35.2 34.7 (32.0-36.0) g/dL RDW 12.7 12.7 (12.0-15.0) % Plt Count 62 L 58 L (130-450) 10^3/uL MPV 10.7 11.5 H (7.4-11.4) fL Neut # (Auto) 2.3 2.3 Lymph # (Auto) 1.2 L 2.1 Gordon # (Auto) 0.2 0.3 Eos # (Auto) 0.0 0.7 Baso # (Auto) 0.0 0.3 H Absolute Nucleated RBC 0.00 0.00 Total Counted Band Neuts % (Manual) (0 - 10) % Abnorm Lymph % (Manual) % Nucleated RBC % 0.0 0.0 Neutrophils # (Manual) (1.5-6.6) 10^3/uL Lymphocytes # (Manual) (1.5-3.5) 10^3/uL Monocytes # (Manual) (0.0-1.0) 10^3/uL Eosinophils # (Manual) (0-0.7) 10^3/uL Basophils # (Manual) (0-0.1) 10^3/uL Differential Comment Platelet Estimate (NORMAL) RBC Morph Micro Appear (NORMAL) Sodium (135-145) mmol/L Potassium (3.5-5.0) mmol/L Chloride (101-111) mmol/L Carbon Dioxide (21-32) mmol/L Anion Gap (6-13) BUN (6-20) mg/dL Creatinine (0.6-1.2) mg/dL Estimated GFR (MDRD) (>89) Glucose (70-100) mg/dL Calcium (8.5-10.3) mg/dL Magnesium 2.2 (1.7-2.8) mg/dL Total Bilirubin (0.2-1.0) mg/dL AST (10-42) IU/L ALT (10-60) IU/L Alkaline Phosphatase (42-121) IU/L Total Protein (6.7-8.2) g/dL Albumin (3.2-5.5) g/dL Globulin (2.1-4.2) g/dL Albumin/Globulin Ratio (1.0-2.2) 06/24/20 06/24/20 06/23/20 Range/Units 04:35 04:35 21:02 WBC 2.9 L 2.9 L (4.8-10.8) x10^3/uL RBC 3.78 L 3.78 L (4.70-6.10) 10^6/uL Hgb 14.0 14.4 (14.0-18.0) g/dL Hct 39.2 L 39.5 L (42.0-52.0) % MCV 103.7 H 104.5 H (80.0-94.0) fL MCH 37.0 H 38.1 H (27.0-31.0) pg MCHC 35.7 36.5 H (32.0-36.0) g/dL RDW 12.8 12.7 (12.0-15.0) % Plt Count 65 L 71 L (130-450) 10^3/uL MPV 11.8 H 11.2 (7.4-11.4) fL Neut # (Auto) Not Reportable Not Reportable Lymph # (Auto) Not Reportable Not Reportable [place] # (Auto) Not Reportable Not Reportable Eos # (Auto) Not Reportable Not Reportable Baso # (Auto) Not Reportable Not Reportable Absolute Nucleated RBC Not Reportable Not Reportable Total Counted 100 100 Band Neuts % (Manual) 1 0 (0 - 10) % Abnorm Lymph % (Manual) 0 0 % Nucleated RBC % Not Reportable Not Reportable Neutrophils # (Manual) 1.4 L 1.6 (1.5-6.6) 10^3/uL Lymphocytes # (Manual) 1.3 L 1.1 L (1.5-3.5) 10^3/uL Monocytes # (Manual) 0.1 0.1 (0.0-1.0) 10^3/uL Eosinophils # (Manual) 0.0 0.0 (0-0.7) 10^3/uL Basophils # (Manual) 0.0 0.1 (0-0.1) 10^3/uL Differential Comment MANUAL DIFFERENTIAL MANUAL DIFFERENTIAL Platelet Estimate DECREASED (<130,000) DECREASED (<130,000) (NORMAL) RBC Morph Micro Appear NORMAL APPEARANCE 1+ MACROCYTOSIS (NORMAL) Sodium 138 (135-145) mmol/L Potassium 3.7 (3.5-5.0) mmol/L Chloride 101 (101-111) mmol/L Carbon Dioxide 23 (21-32) mmol/L Anion Gap 14.0 H (6-13) BUN 12 (6-20) mg/dL Creatinine 0.8 (0.6-1.2) mg/dL Estimated GFR (MDRD) 110 (>89) Glucose 83 (70-100) mg/dL Calcium 7.7 L (8.5-10.3) mg/dL Magnesium (1.7-2.8) mg/dL Total Bilirubin 2.3 H (0.2-1.0) mg/dL AST 202 H (10-42) IU/L ALT 94 H (10-60) IU/L Alkaline Phosphatase 52 (42-121) IU/L Total Protein 5.0 L (6.7-8.2) g/dL Albumin 3.1 L (3.2-5.5) g/dL Globulin 1.9 L (2.1-4.2) g/dL Albumin/Globulin Ratio 1.6 (1.0-2.2) ABX Reporting Has patient been on IV antibiotics over the past 48 hours?: No Assessment/Plan - Problem List (1) GI bleed Impression: Patient report There is no more nausea or vomiting of blood, patient report he had bowel movement with dark stool. Patient's hemoglobin is stable. Patient will have EGD done in the late afternoon (2) Alcohol abuse Conclusion/Plan: Patient started to show alcohol withdrawal symptoms, Handshaking. We will cont inue [facility] protocol, Continue banana bag. 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
--- NOTE | 2020-06-24 19:36 | ANESTHESIA POST OP EVALUATION ---
Anesthesia Post Eval - Post Anesthesia Eval Vitals: Last Vital Signs Temp 36.5 C 06/24/20 18:45 Pulse 80 06/24/20 18:45 Resp 22 06/24/20 18:45 BP 121/79 06/24/20 18:45 Pulse Ox 96 06/24/20 18:45 CV Function Including HR & BP: positive: Stable Pain Control: positive: Satisfactory Nausea & Vomiting: positive: Negative Mental Status: positive: Baseline Respiratory Status: Airway Patent Hydration Status: Satisfactory Anesthesia Complications: positive: None
[2020-06-24] MEDS: D5.45NS W/20 MEQ KCL 1,000 ML IV SCH ×2 (20:26→20:30)
[2020-06-24 21:04] LABS: HGB - HEMOGLOBIN 13.7 g/dL (14.0-18.0)
[2020-06-24] MEDS: SUCRALFATE 1 GM/10 ML UDC PO SCH (21:19)
[2020-06-25] MEDS: LORazepam 2 MG/ML VIAL IVP PRN ×6 (00:30→15:07)
[2020-06-25] MEDS: chlordiazePOXIDE 25 MG CAPSULE PO SCH ×3 (00:30→11:04)
[2020-06-25] MEDS: SODIUM CHLORIDE FLUSH 0.9% 10 ML SYRINGE IVP SCH ×2 (00:31→08:34)
[2020-06-25 06:20] LABS: ALBUMIN 3.2 g/dL (3.2-5.5); ALBUMIN/GLOBULIN RATIO 1.3 (1.0-2.2); ALKALINE PHOSPHATASE 76 IU/L (42-121); ALT ALANINE AMINOTRANSFERASE 123 IU/L (10-60); AST ASPARTATE AMINOTRANSFERASE 283 IU/L (10-42); BILIRUBIN,TOTAL 1.8 mg/dL (0.2-1.0); BUN - BLOOD UREA NITROGEN < 5 mg/dL (6-20); CALCIUM 8.6 mg/dL (8.5-10.3); CARBON DIOXIDE - CO2 28 mmol/L (21-32); CHLORIDE 99 mmol/L (101-111); GLUCOSE 107 mg/dL (70-100); SODIUM 138 mmol/L (135-145); TOTAL PROTEIN 5.7 g/dL (6.7-8.2)
[2020-06-25] MEDS: SUCRALFATE 1 GM/10 ML UDC PO SCH ×2 (06:59→10:58)
[2020-06-25] MEDS: D5.45NS W/20 MEQ KCL 1,000 ML IV SCH (07:07)
[2020-06-25 07:38] LABS: BASOPHILS % (AUTO) 1.3 %; EOSINOPHILS # (AUTO) 0.1 10^3/uL (0.0-0.7); EOSINOPHILS % (AUTO) 2.3 %; HGB - HEMOGLOBIN 13.7 g/dL (14.0-18.0); LYMPHOCYTES # (AUTO) 1.1 10^3/uL (1.5-3.5); LYMPHOCYTES % (AUTO) 36.2 %; MEAN CORPUSCULAR HEMOGLOBIN 35.8 pg (27.0-31.0); MEAN CORPUSCULAR HGB CONC 33.4 g/dL (32.0-36.0); MEAN PLATELET VOLUME 11.3 fL (7.4-11.4); MONOCYTES # (AUTO) 0.2 10^3/uL (0.0-1.0); MONOCYTES % (AUTO) 4.9 %; NEUTROPHILS # (AUTO) 1.7 10^3/uL (1.5-6.6); NEUTROPHILS % (AUTO) 55.3 %; PLT - PLATELET COUNT 59 10^3/uL (130-450); RED BLOOD COUNT 3.83 10^6/uL (4.70-6.10); RED CELL DISTRIBUTION WIDTH 13.2 % (12.0-15.0)
[2020-06-25] MEDS: ALBUTEROL NEB 2.5 MG/3 ML INH PRN (07:51)
[2020-06-25] MEDS: PANTOPRAZOLE 40 MG VIAL IVP SCH (08:30)
[2020-06-25] MEDS: ACETAMINOPHEN 325 MG TABLET PO PRN (08:30)
[2020-06-25] MEDS: THIAMINE 100 MG TABLET PO SCH (08:33)
[2020-06-25] MEDS: ONDANSETRON 4 MG/2 ML VIAL IVP PRN (08:33)
[2020-06-25] MEDS: NICOTINE 14 MG PATCH TOP SCH (08:34)
[2020-06-25 08:51] VITALS: BP 133/68
--- NOTE | 2020-06-25 14:59 | PROVIDER PROGRESS NOTE ---
Assessment/Plan - Problem List (1) GI bleed Qualifiers: GI bleed type/associated pathology: unspecified gastrointestinal hemorrhage type Qualified Code(s): K92.2 - Gastrointestinal hemorrhage, unspecified Assessment/Plan: 91,Patient has no nausea vomiting, has no bowel movement. HGB is stable. EGD found the patient to have 2 gastric ulcers, surgeon believe this is his bleeding sites. We will continue Protonix twice daily, add Carafate, Advance diet the patient tolerated (2) Alcohol abuse Conclusion/Plan: , Patient CIWA score still has 16, Symptomatic withdrawal symptoms. We will continue Librium, continue Ativan PRN, continue banana bag.Advised the patient quit alcohol Patient started to show alcohol withdrawal symptoms, Handshaking. We will continue CIWA protocol, Continue banana bag. 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 (4) Seizure Conclusion/Plan: No seizure, seizure precaution (3) Alcoholic hepatitis Qualifiers: Ascites presence: without ascites Qualified Code(s): K70.10 - Alcoholic hepatitis without ascites - Current Meds Current Meds: Current Medications Generic Name Dose Route Start Last Admin Trade Name Freq PRN Reason Stop Dose Admin Acetaminophen 650 mg 06/24/20 13:51 06/25/20 08:30 Tylenol PO 650 mg Q4HR PRN Administration Pain or Fever > 38C (100.4F) Albuterol 2.5 mg 06/23/20 18:10 06/25/20 07:51 INH 2.5 mg RTQ4H PRN Administration Wheezing Chlordiazepoxide HCl 25 mg 06/23/20 18:00 06/25/20 11:04 Librium PO 25 mg Q6HR DANYA Administration Lorazepam 1 mg 06/23/20 16:11 06/25/20 13:28 Ativan Inj (Vial) IVP 1 mg Q30M PRN Administration CIWA >8 Protocol Nicotine 1 patch 06/23/20 19:14 06/25/20 08:34 Nicoderm TOP 1 patch DAILY DANYA Administration Ondansetron HCl 4 mg 06/23/20 16:00 06/25/20 08:33 Zofran Inj IVP 4 mg Q6HR PRN Administration Nausea / Vomiting Pantoprazole Sodium 40 mg 06/23/20 21:00 06/25/20 08:30 Protonix IVP 40 mg BID DANYA Administration Prochlorperazine Edisylate 10 mg 06/23/20 16:00 06/24/20 09:14 Compazine Inj IVP 10 mg Q6HR PRN Administration Nausea / Vomiting Sodium Chloride 10 ml 06/23/20 16:00 06/24/20 06:27 Normal Saline Flush 0.9% IVP 30 ml PRN PRN Administration NEEDED PER PROVIDER ORDERS Sodium Chloride 10 ml 06/23/20 17:00 06/25/20 08:34 Normal Saline Flush 0.9% IVP 10 ml 0100,0900,1700 DANYA Administration Sucralfate 1 gm 06/24/20 22:00 06/25/20 10:58 Carafate PO 1 gm 0700,1100,1600,2200 DANYA Administration Thiamine HCl 100 mg 06/24/20 09:00 06/25/20 08:33 Vitamin B-1 PO 100 mg DAILY DANYA Administration - Lab Result Fish Bone Diagrams: 06/25/20 05:25 06/25/20 05:25 - Additional Planning My Orders: My Active Orders 06/24/20 Dinner Soft (Low Fiber) Diet [DIET] 06/24/20 22:00 Sucralfate [Carafate] 1 gm PO 0700,1100,1600,2200 06/26/20 05:00 CBC - COMP BLD CT W/AUTO DIFF [HEME] DAILYLAB 06/27/20 05:00 CBC - COMP BLD CT W/AUTO DIFF [HEME] DAILYLAB 06/28/20 05:00 CBC - COMP BLD CT W/AUTO DIFF [HEME] DAILYLAB 06/29/20 05:00 CBC - COMP BLD CT W/AUTO DIFF [HEME] DAILYLAB Subjective - Subjective Nursing Reports: Sedated Objective Vital Signs: Vital Signs - 24 hr 06/24/20 06/24/20 06/24/20 16:00 18:15 18:45 Temperature 36.5 C 36.5 C 36.5 C Heart Rate 60 Heart Rate [ 60 80 Brachial] Respiratory 22 22 22 Rate Blood Pressure 121/79 [Left Brachial artery] Blood Pressure 130/72 [Right Brachial artery] O2 Saturation 95 95 96 06/24/20 06/24/20 06/25/20 20:20 23:54 07:51 Temperature 37.0 C Heart Rate 80 88 Heart Rate [ 76 Brachial] Respiratory 22 18 14 Rate Blood Pressure [Left Brachial artery] Blood Pressure 120/71 [Right Brachial artery] O2 Saturation 96 06/25/20 08:45 Temperature 36.6 C Heart Rate Heart Rate [ 87 Brachial] Respiratory 18 Rate Blood Pressure [Left Brachial artery] Blood Pressure 133/68 H [Right Brachial artery] O2 Saturation 95 Oxygen O2 Source Room air I&O (Last 24 Hrs): Intake and Output Totals x24h 06/23/20 06/24/20 06/25/20 23:59 23:59 23:59 Intake Total 2288 2406.2 1960 Output Total 550 3050 1925 Balance 1738 -643.8 35 General: Alert, No acute distress HEENT: Atraumatic Neck: Supple Lymphatic: no adenopathy Neuro: Alert, Non Focal Cardiovascular: Regular rate, Normal S1, Normal S2 Respiratory: Chest non-tender, No respiratory distress Abdomen: Normal bowel sounds, Soft Extremities: Normal pulses - Results Results: Laboratory Results WBC 3.0 x10^3/uL (4.8-10.8) L 06/25/20 05:25 RBC 3.83 10^6/uL (4.70-6.10) L 06/25/20 05:25 Hgb 13.7 g/dL (14.0-18.0) L 06/25/20 05:25 Hct 41.0 % (42.0-52.0) L 06/25/20 05:25 MCV 107.0 fL (80.0-94.0) H 06/25/20 05:25 MCH 35.8 pg (27.0-31.0) H 06/25/20 05:25 MCHC 33.4 g/dL (32.0-36.0) 06/25/20 05:25 RDW 13.2 % (12.0-15.0) 06/25/20 05:25 Plt Count 59 10^3/uL (130-450) L 06/25/20 05:25 MPV 11.3 fL (7.4-11.4) 06/25/20 05:25 Neut # (Auto) 1.7 10^3/uL (1.5-6.6) 06/25/20 05:25 Lymph # (Auto) 1.1 10^3/uL (1.5-3.5) L 06/25/20 05:25 [place] # (Auto) 0.2 10^3/uL (0.0-1.0) 06/25/20 05:25 Eos # (Auto) 0.1 10^3/uL (0.0-0.7) 06/25/20 05:25 Baso # (Auto) 0.0 10^3/uL (0.0-0.1) 06/25/20 05:25 Absolute Nucleated RBC 0.00 x10^3/uL 06/25/20 05:25 Total Counted 100 06/24/20 04:35 Band Neuts % (Manual) 1 % (0-10) 06/24/20 04:35 Abnorm Lymph % (Manual) 0 % 06/24/20 04:35 Nucleated RBC % 0.0 /100WBC 06/25/20 05:25 Neutrophils # (Manual) 1.4 10^3/uL (1.5-6.6) L 06/24/20 04:35 Lymphocytes # (Manual) 1.3 10^3/uL (1.5-3.5) L 06/24/20 04:35 Monocytes # (Manual) 0.1 10^3/uL (0.0-1.0) 06/24/20 04:35 Eosinophils # (Manual) 0.0 10^3/uL (0-0.7) 06/24/20 04:35 Basophils # (Manual) 0.0 10^3/uL (0-0.1) 06/24/20 04:35 Differential Comment MANUAL DIFFERENTIAL 06/24/20 04:35 WBC Morphology NORMAL APPEARANCE (NORMAL) 06/23/20 11:50 Platelet Estimate DECREASED (<130,000) (NORMAL) 06/24/20 04:35 Platelet Morphology NORMAL APPEARANCE (NORMAL) 06/23/20 11:50 RBC Morph Micro Appear NORMAL APPEARANCE (NORMAL) 06/24/20 04:35 Whole Blood INR 1.1 (0.8-1.2) 06/23/20 12:20 Sodium 138 mmol/L (135-145) 06/25/20 05:25 Potassium 3.8 mmol/L (3.5-5.0) 06/25/20 05:25 Chloride 99 mmol/L (101-111) L 06/25/20 05:25 Carbon Dioxide 28 mmol/L (21-32) 06/25/20 05:25 Anion Gap 11.0 (6-13) 06/25/20 05:25 BUN < 5 mg/dL (6-20) L 06/25/20 05:25 Creatinine 1.0 mg/dL (0.6-1.2) 06/25/20 05:25 Estimated GFR (MDRD) 85 (>89) L 06/25/20 05:25 Glucose 107 mg/dL (70-100) H 06/25/20 05:25 Calcium 8.6 mg/dL (8.5-10.3) 06/25/20 05:25 Magnesium 2.2 mg/dL (1.7-2.8) 06/24/20 09:05 Total Bilirubin 1.8 mg/dL (0.2-1.0) H 06/25/20 05:25 AST 283 IU/L (10-42) H 06/25/20 05:25 ALT 123 IU/L (10-60) H 06/25/20 05:25 Alkaline Phosphatase 76 IU/L (42-121) 06/25/20 05:25 Total Creatine Kinase 104 IU/L (22-269) 06/23/20 11:50 Troponin I High Sens 7.2 ng/L (2.3-19.7) 06/23/20 11:50 Total Protein 5.7 g/dL (6.7-8.2) L 06/25/20 05:25 Albumin 3.2 g/dL (3.2-5.5) 06/25/20 05:25 Globulin 2.5 g/dL (2.1-4.2) 06/25/20 05:25 Albumin/Globulin Ratio 1.3 (1.0-2.2) 06/25/20 05:25 Lipase 49 U/L (22-51) 06/23/20 11:50 Urine Color YELLOW 06/23/20 13:05 Urine Clarity CLEAR (CLEAR) 06/23/20 13:05 Urine pH 7.0 PH (5.0-7.5) 06/23/20 13:05 Ur Specific [place] 1.020 (1.002-1.030) 06/23/20 13:05 Urine Protein NEGATIVE mg/dL (NEGATIVE) 06/23/20 13:05 Urine Glucose (UA) NEGATIVE mg/dL (NEGATIVE) 06/23/20 13:05 Urine Ketones NEGATIVE mg/dL (NEGATIVE) 06/23/20 13:05 Urine Occult Blood NEGATIVE (NEGATIVE) 06/23/20 13:05 Urine Nitrite NEGATIVE (NEGATIVE) 06/23/20 13:05 Urine Bilirubin NEGATIVE (NEGATIVE) 06/23/20 13:05 Urine Urobilinogen 0.2 (NORMAL) E.U./dL (NORMAL) 06/23/20 13:05 Ur Leukocyte Esterase NEGATIVE (NEGATIVE) 06/23/20 13:05 Ur Microscopic Review NOT INDICATED 06/23/20 13:05 Urine Culture Comments NOT INDICATED 06/23/20 13:05 Ethyl Alcohol 201.9 mg/dL 06/23/20 11:50 Blood Type AB POSITIVE 06/23/20 12:45 Blood Type Recheck AB POSITIVE 06/23/20 11:50 Antibody Screen NEGATIVE 06/23/20 12:45 ABX Reporting Has patient been on IV antibiotics over the past 48 hours?: No Current Medications - Current Medications Current Medications: Active Medications Acetaminophen (Tylenol) 650 mg PO Q4HR PRN PRN Reason: Pain or Fever > 38C (100.4F) Last Admin: 06/25/20 08:30 Dose: 650 mg Documented by: Albuterol () 2.5 mg INH RTQ4H PRN PRN Reason: Wheezing Last Admin: 06/25/20 07:51 Dose: 2.5 mg Documented by: Chlordiazepoxide HCl (Librium) 25 mg PO Q6HR DANYA Last Admin: 06/25/20 11:04 Dose: 25 mg Documented by: Lorazepam (Ativan Inj (Vial)) 1 mg IVP Q30M PRN; Protocol PRN Reason: CIWA >8 Last Admin: 06/25/20 13:28 Dose: 1 mg Documented by: Lorazepam (Ativan Inj (Vial)) 2 mg IVP Q2H PRN PRN Reason: Seizure Nicotine (Nicoderm) 1 patch TOP DAILY DANYA Last Admin: 06/25/20 08:34 Dose: 1 patch Documented by: Ondansetron HCl (Zofran Inj) 4 mg IVP Q6HR PRN PRN Reason: Nausea / Vomiting Last Admin: 06/25/20 08:33 Dose: 4 mg Documented by: Pantoprazole Sodium (Protonix) 40 mg IVP BID [facility] Last Admin: 06/25/20 08:30 Dose: 40 mg Documented by: Prochlorperazine Edisylate (Compazine Inj) 10 mg IVP Q6HR PRN PRN Reason: Nausea / Vomiting Last Admin: 06/24/20 09:14 Dose: 10 mg Documented by: Sodium Chloride (Normal Saline Flush 0.9%) 10 ml IVP PRN PRN PRN Reason: NEEDED PER PROVIDER ORDERS Last Admin: 06/24/20 06:27 Dose: 30 ml Documented by: Sodium Chloride (Normal Saline Flush 0.9%) 10 ml IVP 0100,0900,1700 [facility] Last Admin: 06/25/20 08:34 Dose: 10 ml Documented by: Sucralfate (Carafate) 1 gm PO 0700,1100,1600,2200 [facility] Last Admin: 06/25/20 10:58 Dose: 1 gm Documented by: Thiamine HCl (Vitamin B-1) 100 mg PO DAILY [facility] Last Admin: 06/25/20 08:33 Dose: 100 mg Documented by: tiZANidine [Zanaflex] 4 mg PO TID PRN 06/06/17 Albuterol Sulf [Ventolin Hfa Inhaler] 2 puffs INH QID PRN 06/23/20 SUMAtriptan succinate [Sumatriptan Succinate] 100 mg PO DAILY PRN 06/23/20 Gabapentin [Neurontin] 800 mg PO QID 06/24/20
--- NOTE | 2020-06-25 15:47 | DISCHARGE SUMMARY ---
"Discharge Summary Admit Date: 06/23/20 Discharge Date: 06/25/20 Discharging Provider: Herson Granger Primary Care Provider: Rosette Bronson Condition at Discharge: Stable Discharge Disposition: Against Medical Advice Discharge Facility Name: home - DIAGNOSES Discharge Diagnoses with Status of Each Condition: (1) GI bleed Patient' HGB is stable, has no more GI bleeding, No more vomiting. Patient was found to have 2 gastric ulcers which was believed bleeding site by the GI surgeon when he had a EGD done in the hospital. Patient is prescribed PPI, Carafate.Advised patient quit alcohol (2) Alcohol abuse Patient request to sign AMA and left the hospital. Patient was the strongest advised to quit alcohol. Patient is prescript of pre-malena, vitamin B-1, and Ativan to help alcoholism. (3) Alcoholic hepatitis Stable. Strongly advised the patient quit alcohol (4) Seizure No seizure in the hospital (5)AMA pt is alert and oriented plus 3. Patient requested to sign AMA and left the hospital. Patient was advised the risk to sign AMA, But the patient continue sign AMA and left the hospital. - HPI History of Present Illness: This is a 34-year-old male with a history of alcohol abuse and seizure-caused by alcohol withdrawal, presents to the emergency department with overnight of vomiting and diarrhea. He reports vomiting coffee-ground emesis on last night at the same time, he still drunk bear, but also having hematochezia over the night. He report his diarrhea is stopped now. He report his last drink is last night to have three large beer. Patient report his father and his uncle both from alcohol abuse. He reports that he had a colonoscopy and EGD in 2007, he report both was normal reported to him. Initial hemoglobin 15. He was given 1 L of IV fluids and after nearly 4 hours in the emergency department, in the repeated hemoglobin was 13.9. IN hospital, he has not had any further vomiting of blood or hematochezia. CT angios of the abdomen Did not indicate acute abnormality. ER discuss with the radiologist, radiologist did not think pt has varices. Patient was admitted for GI bleeding, general surgeon was called and the plan to have EGD first on tomorrow. Discussed the care goal with the patient, patient want full code - CONSULTS | PROCEDURES Consultations: Dr. Brown Procedures: EGD - HOSPITAL COURSE Hospital Course: Patient was admitted for vomiting of blood and GI rectal bleeding. After admitted, patient was give intravenous Protonix, bowel rest, Intravenous IV fluids. Patient was advised by radiologist patient has no esophageal varices to cause vomiting of blood. Patient had a EGD done in the hospital which show patient had a 2 gastro ulcers which GI surgeon believe it is the bleeding site. Patient was given Protonix and Carafate. Patient has no more vomiting of the blood, patient has no bowel movement on today. Patient's hemoglobin is stable. Patient is alert and orientated plus 3 and Patient request to sign AMA and left the hospital. Patient is prescribed of PPI, Carafate, pre-, vitamin B1, and Ativan to help pt. - ALLERGIES Allergies/Adverse Reactions: Allergies Allergy/AdvReac Type Severity Reaction Status Date / Time No Known Drug Allergies Allergy Verified 06/23/20 11:39 - MEDICATIONS Home Medications: Ambulatory Orders Medication Instructions Recorded Confirmed tiZANidine [Zanaflex] 4 mg PO TID PRN 06/06/17 06/24/20 Ondansetron Odt [Zofran] 4 mg TL Q6H PRN #10 tablet 03/03/20 06/24/20 Famotidine 20 mg PO DAILY #30 tablet 03/17/20 06/24/20 Albuterol Sulf [Ventolin Hfa 2 puffs INH QID PRN 06/23/20 06/24/20 Inhaler] SUMAtriptan succinate [Sumatriptan 100 mg PO DAILY PRN 06/23/20 06/24/20 Succinate] Gabapentin [Neurontin] 800 mg PO QID 06/24/20 06/24/20 LORazepam [Ativan] 1 mg PO Q6H PRN #15 tablet 06/25/20 Omeprazole 40 mg PO DAILY #30 capsule. 06/25/20 Pnv No.95/Ferrous Fum/Folic AC 1 each PO DAILY #30 tablet 06/25/20 [ Tablet] Sucralfate [Carafate] 1 gm PO TID #60 tablet 06/25/20 Thiamine HCl [Vitamin B-1] 100 mg PO DAILY #30 tablet 06/25/20 - PHYSICAL EXAM AT DISCHARGE Physical Exam Other/Comments: Patient signed AMA and left the hospital, I cannot do the physical examination for patient before pt left - LABS Result Diagrams: 06/25/20 05:25 06/25/20 05:25 - FOLLOW UP Follow Up: Advised the patient quit alcohol, follow-up with PCP in 1 to 2 weeks - TIME SPENT Time Spent in Discharge (Minutes): 30"
== END 2020-06-25 15:45 | disposition left against medical advice (07) | DRG 378 ==
LOC: ED 11:32 → MS2 16:00
PROVIDERS: ADMIT Specialist; ATTEND Specialist
PROC: 0DB68ZX Excision of Stomach, Via Natural or Artificial Opening Endoscopic, Diagnostic (ICD-10-PCS; principal; 2020-06-24 15:55)
DX: K25.4 Chronic or unspecified gastric ulcer with hemorrhage (principal); F10.239 Alcohol dependence with withdrawal, unspecified; K70.10 Alcoholic hepatitis without ascites; K21.9 Gastro-esophageal reflux disease without esophagitis; K44.9 Diaphragmatic hernia without obstruction or gangrene; K52.9 Noninfective gastroenteritis and colitis, unspecified; Z72.89 Other problems related to lifestyle; Z86.69 Personal history of other diseases of the nervous system and sense organs; Z81.1 Family history of alcohol abuse and dependence
CPT/HCPCS: 36415; 71045; 74174; 80053; 80320; 81003; 82550; 83690; 83735; 84484; 85014; 85018; 85025; 85027; 85610; 86850; 86900; 86901; 93005; 94640; 96361; 96374; 96375; 96376; 99285; 99406; A9270; J2060; J3411; J7040; Q9967; 81001; 87086

== ENCOUNTER 2020-06-27 21:08 | Emergency (ER) | payer MEDICAID ==
[2020-06-27 22:04] LABS: EOSINOPHILS % (AUTO) 0.7 %; HGB - HEMOGLOBIN 13.7 g/dL (14.0-18.0); LYMPHOCYTES % (AUTO) 26.8 %; MEAN CORPUSCULAR HEMOGLOBIN 35.8 pg (27.0-31.0); MEAN CORPUSCULAR HGB CONC 32.7 g/dL (32.0-36.0); MEAN CORPUSCULAR VOLUME 109.4 fL (80.0-94.0); MEAN PLATELET VOLUME 10.7 fL (7.4-11.4); MONOCYTES % (AUTO) 6.5 %; NEUTROPHILS % (AUTO) 64.5 %; PLT - PLATELET COUNT 77 10^3/uL (130-450); RED BLOOD COUNT 3.83 10^6/uL (4.70-6.10); RED CELL DISTRIBUTION WIDTH 13.6 % (12.0-15.0); WHITE BLOOD COUNT 4.1 x10^3/uL (4.8-10.8)
[2020-06-27 22:12] LABS: ABNORMAL LYMPHS % (MANUAL) 0 %; BAND NEUTROPHILS % (MANUAL) 0 %
[2020-06-27 22:16] LABS: ALBUMIN 4.1 g/dL (3.2-5.5); ALBUMIN/GLOBULIN RATIO 1.2 (1.0-2.2); BILIRUBIN,TOTAL 1.3 mg/dL (0.2-1.0); CALCIUM 9.6 mg/dL (8.5-10.3); CREATININE 0.8 mg/dL (0.6-1.2); TOTAL PROTEIN 7.5 g/dL (6.7-8.2)
[2020-06-27 22:27] LABS: BASOPHILS % (MANUAL) 1 %; EOSINOPHILS # (MANUAL) 0.1 10^3/uL (0-0.7); LYMPHOCYTES # (MANUAL) 1.1 10^3/uL (1.5-3.5); LYMPHOCYTES % (MANUAL) 28 %; MONOCYTES # (MANUAL) 0.2 10^3/uL (0.0-1.0)
[2020-06-27 22:28] LABS: DIFFERENTIAL COMMENT MANUAL DIFFERENTIAL; PLATELET ESTIMATE, MANUAL DECREASED (<130,000) (NORMAL); PLATELET MORPHOLOGY NORMAL APPEARANCE (NORMAL)
[2020-06-27 22:36] LABS: BILIRUBIN,URINE NEGATIVE (NEGATIVE); CLARITY,URINE CLEAR (CLEAR); GLUCOSE, URINE (UA) NEGATIVE (NEGATIVE); KETONES,URINE (UA) NEGATIVE (NEGATIVE); LEUKOCYTE ESTERASE, URINE NEGATIVE (NEGATIVE); NITRITE,URINE NEGATIVE (NEGATIVE); OCCULT BLOOD,URINE NEGATIVE (NEGATIVE); PROTEIN,URINE NEGATIVE (NEGATIVE); UROBILINOGEN,URINE 0.2 (NORMAL) E.U./dL (NORMAL)
[2020-06-27] MEDS ORDERED: LORazepam 2 MG/ML VIAL IVP STA (23:07)
[2020-06-27] MEDS ORDERED: PROMETHAZINE INJ 25 MG in SODIUM CHLORIDE 0.9% 50 ML IV STA (23:07)
--- NOTE | 2020-06-27 23:08 | ED Physician Documentation ---
History of Present Illness - Stated complaint Stated Complaint: N&V, DIARRHEA - Chief complaint Chief Complaint: Abd Pain - History obtained from History obtained from: Patient - Additonal information Additional information: Patient comes emergency department complaining of nausea and "feeling like crap" after signing out of the hospital yesterday while admitted for upper GI bleed. Patient is a chronic alcoholic times "decades" and states that he left because he needed to take care of his little dog. He states that he took the Ativan that was prescribed for him by his hospitalist, but that did not seem to help with the shakes and nausea. As such, the patient decided to drink "a couple beers". Patient states it helped him feel little better, but then he began to feel shaky again today, so he drank another beer. He has continued to take the Ativan also. He states he is taking about 1 mg every few hours. Patient denies any seizures or hallucinations. He states that he has had small amount of blood in his stool and vomitus. The patient's records reveal that the patient was worked up with an EGD which showed a couple of gastric ulcers which were nonbleeding at the time of scope. The patient was started on omeprazole which she was instructed to take as an outpatient and patient states he has been doing this. The patient was also instructed to stop drinking alcohol. The patient does have a primary care physician whom he is seen once, but not since leaving the hospital yesterday. No other complaints at this time. Review of Systems Ten Systems: 10 systems reviewed and negative Constitutional: reports: Reviewed and negative Eyes: reports: Reviewed and negative Ears: reports: Reviewed and negative Nose: reports: Reviewed and negative Throat: reports: Reviewed and negative Cardiac: reports: Reviewed and negative Respiratory: reports: Reviewed and negative GI: reports: Nausea, Vomiting, Diarrhea, Hematemesis, Bloody / black stool : reports: Reviewed and negative Skin: reports: Reviewed and negative Musculoskeletal: reports: Reviewed and negative Neurologic: reports: Reviewed and negative Psychiatric: reports: Reviewed and negative Endocrine: reports: Reviewed and negative Immunocompromised: reports: Reviewed and negative PD PAST MEDICAL HISTORY - Past Medical History Cardiovascular: None Respiratory: None Neuro: Seizure disorder Endocrine/Autoimmune: None GI: GERD, Chronic diarrhea : None HEENT: None Psych: None Musculoskeletal: None Derm: None - Past Surgical History Past Surgical History: Yes General: Colonoscopy HEENT: Tonsil/Adenoidectomy - Present Medications Home Medications: Ambulatory Orders Medication Instructions Recorded Confirmed tiZANidine [Zanaflex] 4 mg PO TID PRN 06/06/17 06/24/20 Ondansetron Odt [Zofran] 4 mg TL Q6H PRN #10 tablet 03/03/20 06/24/20 Famotidine 20 mg PO DAILY #30 tablet 03/17/20 06/24/20 Albuterol Sulf [Ventolin Hfa 2 puffs INH QID PRN 06/23/20 06/24/20 Inhaler] SUMAtriptan succinate [Sumatriptan 100 mg PO DAILY PRN 06/23/20 06/24/20 Succinate] Gabapentin [Neurontin] 800 mg PO QID 06/24/20 06/24/20 LORazepam [Ativan] 1 mg PO Q6H PRN #15 tablet 06/25/20 Omeprazole 40 mg PO DAILY #30 capsule. 06/25/20 Pnv No.95/Ferrous Fum/Folic AC 1 each PO DAILY #30 tablet 06/25/20 [ Tablet] Sucralfate [Carafate] 1 gm PO TID #60 tablet 06/25/20 Thiamine HCl [Vitamin B-1] 100 mg PO DAILY #30 tablet 06/25/20 LORazepam [Lorazepam] 2 mg PO Q4HR PRN 2 Days #8 tablet 06/27/20 Ondansetron Odt [Zofran] 4 mg TL Q6H PRN #10 tablet 06/27/20 - Allergies Allergies/Adverse Reactions: Allergies Allergy/AdvReac Type Severity Reaction Status Date / Time No Known Drug Allergies Allergy Verified 06/27/20 21:22 - Social History Does the pt smoke?: No Smoking Status: Never smoker Does the pt drink ETOH?: No Does the pt have substance abuse?: No - Immunizations Immunizations are current?: Yes Immunizations: TDAP current <10years - POLST Patient has POLST: No POLST Status: Full Code PD ED PE NORMAL - Vitals Vital signs reviewed: Yes - General General: Alert and oriented X 3, No acute distress, Well developed/nourished - HEENT HEENT: Atraumatic, PERRL, EOMI, Moist mucous membranes - Neck Neck: Supple, no meningeal sign - Cardiac Cardiac: RRR, No murmur - Respiratory Respiratory: No respiratory distress, Clear bilaterally - Abdomen Abdomen: Soft, Non tender, Non distended - Derm Derm: Normal color, Warm and dry, No rash - Extremities Extremities: No deformity, No edema - Neuro Neuro: Alert and oriented X 3, 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, No motor deficit, No sensory deficit, Normal speech - Psych Psych: Normal mood, Normal affect Results - Vitals Vitals: Vital Signs - 24 hr 06/27/20 21:22 Temperature 36.8 C Heart Rate 100 Respiratory 16 Rate Blood Pressure 129/78 O2 Saturation 98 Oxygen O2 Source Room air - Labs Labs: Laboratory Tests 06/27/20 06/27/20 06/27/20 21:39 21:39 22:30 WBC 4.1 L RBC 3.83 L Hgb 13.7 L Hct 41.9 L MCV 109.4 H MCH 35.8 H MCHC 32.7 RDW 13.6 Plt Count 77 L MPV 10.7 Neut # (Auto) Not Reportable Lymph # (Auto) Not Reportable Elbert # (Auto) Not Reportable Eos # (Auto) Not Reportable Baso # (Auto) Not Reportable Absolute Nucleated RBC Not Reportable Total Counted 100 Band Neuts % (Manual) 0 Abnorm Lymph % (Manual) 0 Nucleated RBC % Not Reportable Neutrophils # (Manual) 2.7 Lymphocytes # (Manual) 1.1 L Monocytes # (Manual) 0.2 Eosinophils # (Manual) 0.1 Basophils # (Manual) 0.0 Differential Comment MANUAL DIFFERENTIAL Manual Slide Review Indicated WBC Morphology NORMAL APPEARANCE Platelet Estimate DECREASED (<130,000) Platelet Morphology NORMAL APPEARANCE RBC Morph Micro Appear 3+ STOMATOCYTES Sodium 142 Potassium 4.0 Chloride 102 Carbon Dioxide 27 Anion Gap 13.0 BUN 8 Creatinine 0.8 Estimated GFR (MDRD) 110 Glucose 82 Calcium 9.6 Total Bilirubin 1.3 H AST 130 H ALT 116 H Alkaline Phosphatase 74 Total Protein 7.5 Albumin 4.1 Globulin 3.4 Albumin/Globulin Ratio 1.2 Lipase 86 H Urine Color YELLOW Urine Clarity CLEAR Urine pH 6.0 Ur Specific [place] 1.025 Urine Protein NEGATIVE Urine Glucose (UA) NEGATIVE Urine Ketones NEGATIVE Urine Occult Blood NEGATIVE Urine Nitrite NEGATIVE Urine Bilirubin NEGATIVE Urine Urobilinogen 0.2 (NORMAL) Ur Leukocyte Esterase NEGATIVE Ur Microscopic Review NOT INDICATED Urine Culture Comments NOT INDICATED PD MEDICAL DECISION MAKING - ED course Complexity details: reviewed results, re-evaluated patient, considered differential, d/w patient ED course: It was worked up with labs, which were unremarkable. Specifically, the patient's H&H was unchanged since the last 2 measurements. The patient was given doses of Phenergan and Ativan in the emergency department. He reported having been able to drink water all day and I felt it was unlikely that he was s ignificantly dehydrated. We have discussed nausea medicine for at home, as well as the need to continue weaning off alcohol. The patient may take 2 mg of Ativan instead of 1 if he feels the single milligram is not controlling his withdrawal symptoms well enough. Patient is advised to follow-up with his primary care physician. Departure - Departure Disposition: 01 Home, Self Care Clinical Impression: Alcohol abuse, Nausea, Peptic ulcer disease Alcohol withdrawal Qualifiers: Complication of substance-induced condition: uncomplicated Qualified Code(s): F10.230 - Alcohol dependence with withdrawal, uncomplicated Condition: Stable Instructions: ED Withdrawal Alcohol, ED Alcohol Abuse Prescriptions: LORazepam [Lorazepam] 2 mg PO Q4HR PRN 2 Days #8 tablet PRN Reason: Alcohol Withdrawal Ondansetron Odt [Zofran] 4 mg TL Q6H PRN #10 tablet PRN Reason: Nausea / Vomiting Comments: Your labs are unchanged since the last 2 such you had drawn, and there is no evidence of a significant blood loss at this time. Is very important that you continue your plans to get off of alcohol. The worst of the withdrawal symptoms are within the first 3 days of quitting drinking, so you should be a good portion of the way through this. You have been given a prescription for the next 1-1/2 days of a higher dose of Ativan, but then should return to the lower dose of 1 mg to ease your body off of any dependence on this kind of medication or alcohol. Your Zofran has also been refilled. Please follow-up with your primary care physician for further assistance with all of this. Please continue to take the stomach medication that you were prescribed to help your ulcers heal. Staying off of alcohol will also help the ulcers to heal, as well.
[2020-06-27] MEDS ORDERED: PROMETHAZINE 25 MG/1 ML VIAL ONE (23:20)
[2020-06-27 23:53] VITALS: BP 118/65
== END 2020-06-27 23:53 | disposition home or self-care (01) ==
LOC: ED 21:08
DX: F10.230 Alcohol dependence with withdrawal, uncomplicated (principal); K27.9 Peptic ulcer, site unspecified, unspecified as acute or chronic, without hemorrhage or perforation
CPT/HCPCS: 36415; 80053; 81003; 83690; 85025; 96365; 96375; 99284; J2060; 81001; 87086

== ENCOUNTER 2020-07-21 13:35 | Emergency (ER) | payer MEDICAID ==
[2020-07-21] MEDS ORDERED: MORPHINE 10 MG/ML VIAL IVP STA (14:58)
[2020-07-21] MEDS ORDERED: FOLIC ACID INJ 1 MG, THIAMINE INJ 100 MG, MAGNESIUM SULFATE 2 GM, MULTIVITAMIN 10 ML in... IV STA ×5 (14:58)
--- NOTE | 2020-07-21 15:03 | ED Physician Documentation ---
PD HPI ABD PAIN - Stated complaint Stated Complaint: BLOOD IN STOOL - Chief complaint Chief Complaint: Abd Pain - History obtained from History obtained from: Patient - Additional information Additional information: 34-year-old gentleman with history of alcoholism presents with dark red bloody stools and lower abdominal pain. He was seen in mid June for upper GI bleeding and admitted. He had duodenal ulcers at the time. States that he was discharged with a PPI and has been compliant with that. Unfortunately he has also been using ibuprofen and continues to use alcohol. He was seen a couple of days later for diarrhea. States that since that discharge has continued to have on and off dark red blood per rectum with lower abdominal pain which is at times severe. Last alcoholic drink was approximately 10 hours ago. No hematemesis although he has been vomiting on and off Review of Systems Ten Systems: 10 systems reviewed and negative Constitutional: reports: Fatigue. denies: Fever, Chills Cardiac: denies: Chest pain / pressure, Palpitations Respiratory: reports: Cough. denies: Dyspnea PD PAST MEDICAL HISTORY - Past Medical History Past Medical History: Yes Cardiovascular: None Respiratory: None Neuro: Seizure disorder Endocrine/Autoimmune: None GI: GERD, Chronic diarrhea : None HEENT: None Psych: None Musculoskeletal: None Derm: None - Past Surgical History Past Surgical History: Yes General: Colonoscopy HEENT: Tonsil/Adenoidectomy - Present Medications Home Medications: Ambulatory Orders Medication Instructions Recorded Confirmed tiZANidine [Zanaflex] 4 mg PO TID PRN 06/06/17 06/24/20 Ondansetron Odt [Zofran] 4 mg TL Q6H PRN #10 tablet 03/03/20 06/24/20 Famotidine 20 mg PO DAILY #30 tablet 03/17/20 06/24/20 Albuterol Sulf [Ventolin Hfa 2 puffs INH QID PRN 06/23/20 06/24/20 Inhaler] SUMAtriptan succinate [Sumatriptan 100 mg PO DAILY PRN 06/23/20 06/24/20 Succinate] Gabapentin [Neurontin] 800 mg PO QID 06/24/20 06/24/20 LORazepam [Ativan] 1 mg PO Q6H PRN #15 tablet 06/25/20 Omeprazole 40 mg PO DAILY #30 capsule. 06/25/20 Pnv No.95/Ferrous Fum/Folic AC 1 each PO DAILY #30 tablet 06/25/20 [ Tablet] Sucralfate [Carafate] 1 gm PO TID #60 tablet 06/25/20 Thiamine HCl [Vitamin B-1] 100 mg PO DAILY #30 tablet 06/25/20 LORazepam [Lorazepam] 2 mg PO Q4HR PRN 2 Days #8 tablet 06/27/20 Ondansetron Odt [Zofran] 4 mg TL Q6H PRN #10 tablet 06/27/20 LORazepam [Ativan] 1 mg PO TID PRN #12 tablet 07/21/20 - Allergies Allergies/Adverse Reactions: Allergies Allergy/AdvReac Type Severity Reaction Status Date / Time No Known Drug Allergies Allergy Verified 06/27/20 21:22 - Social History Does the pt smoke?: No Smoking Status: Never smoker Does the pt drink ETOH?: No Does the pt have substance abuse?: No - Immunizations Immunizations are current?: Yes Immunizations: TDAP current <10years - POLST Patient has POLST: No POLST Status: Full Code PD ED PE NORMAL - Vitals Vital signs reviewed: Yes - General General: Alert and oriented X 3, No acute distress - HEENT HEENT: PERRL, EOMI - Neck Neck: Supple, no meningeal sign, No bony TTP - Cardiac Cardiac: RRR, No murmur - Respiratory Respiratory: No respiratory distress, Clear bilaterally - Abdomen Abdomen: Other (Modest lower abdominal tenderness without surgical signs) - Back Back: No CVA TTP, No spinal TTP - Derm Derm: Normal color, Warm and dry - Extremities Extremities: No edema, No calf tenderness / cord - Neuro Neuro: Alert and oriented X 3, Normal speech Results - Vitals Vitals: Vital Signs - 24 hr 07/21/20 07/21/20 13:49 14:58 Temperature 36.8 C Heart Rate 80 76 Respiratory 18 16 Rate Blood Pressure 119/76 130/78 O2 Saturation 98 100 Oxygen O2 Source Room air - Labs Labs: Laboratory Tests 07/21/20 07/21/20 07/21/20 15:06 15:06 15:06 WBC 2.4 L RBC 3.63 L Hgb 13.8 L Hct 39.6 L MCV 109.1 H MCH 38.0 H MCHC 34.8 RDW 13.2 Plt Count 72 L MPV 10.1 Neut # (Auto) Not Reportable Lymph # (Auto) Not Reportable Jewell # (Auto) Not Reportable Eos # (Auto) Not Reportable Baso # (Auto) Not Reportable Absolute Nucleated RBC Not Reportable Total Counted 100 Band Neuts % (Manual) 0 Abnorm Lymph % (Manual) 0 Nucleated RBC % Not Reportable Neutrophils # (Manual) 1.5 Lymphocytes # (Manual) 0.6 L Monocytes # (Manual) 0.3 Eosinophils # (Manual) 0.0 Basophils # (Manual) 0.0 Differential Comment MANUAL DIFFERENTIAL Manual Slide Review Indicated WBC Morphology NORMAL APPEARANCE Platelet Estimate DECREASED (<130,000) Platelet Morphology NORMAL APPEARANCE RBC Morph Micro Appear 2+ STOMATOCYTES PT 14.8 H INR 1.4 H Sodium Potassium Chloride Carbon Dioxide Anion Gap BUN Creatinine Estimated GFR (MDRD) Glucose Calcium Total Bilirubin AST ALT Alkaline Phosphatase Total Protein Albumin Globulin Albumin/Globulin Ratio Ethyl Alcohol Blood Type AB POSITIVE Antibody Screen NEGATIVE 07/21/20 15:06 WBC RBC Hgb Hct MCV MCH MCHC RDW Plt Count MPV Neut # (Auto) Lymph # (Auto) Jewell # (Auto) Eos # (Auto) Baso # (Auto) Absolute Nucleated RBC Total Counted Band Neuts % (Manual) Abnorm Lymph % (Manual) Nucleated RBC % Neutrophils # (Manual) Lymphocytes # (Manual) Monocytes # (Manual) Eosinophils # (Manual) Basophils # (Manual) Differential Comment Manual Slide Review WBC Morphology Platelet Estimate Platelet Morphology RBC Morph Micro Appear PT INR Sodium 137 Potassium 3.3 L Chloride 95 L Carbon Dioxide 31 Anion Gap 11.0 BUN 11 Creatinine 0.9 Estimated GFR (MDRD) 96 Glucose 129 H Calcium 9.3 Total Bilirubin 3.4 H AST 399 H ALT 186 H Alkaline Phosphatase 82 Total Protein 6.7 Albumin 3.9 Globulin 2.8 Albumin/Globulin Ratio 1.4 Ethyl Alcohol 289.3 Blood Type Antibody Screen - Rads (name of study) CT A/P Radiology: EMP read contemporaneously (Diverticulosis without diverticulitis. Otherwise unremarkable.) PD MEDICAL DECISION MAKING - ED course ED course: 34-year-old gentleman with history of alcoholism presents with subacute dark bloody stools with lower abdominal pain. His H&H is rocksolid from prior values. No active bleeding here. CT done without pertinent positive findings except for diverticula. Counseled at length to quit drinking which he plans to do and given a limited prescription for Ativan to help with impending withdrawals. Discussed return precautions and need for follow-up colonoscopy. Departure - Departure Disposition: 01 Home, Self Care Clinical Impression: Alcoholism Alcoholic hepatitis Qualifiers: Ascites presence: without ascites Qualified Code(s): K70.10 - Alcoholic hepatitis without ascites Abdominal pain Qualifiers: Abdominal location: generalized Qualified Code(s): R10.84 - Generalized abdominal pain Condition: Good Record reviewed to determine appropriate education?: Yes Instructions: ED Abdominal Pain Unkn Cause Male, ED Alcohol Abuse Follow-Up: Jorge Brown MD [Provider Admit Priv/Credential] - Prescriptions: LORazepam [Ativan] 1 mg PO TID PRN #12 tablet PRN Reason: Anxiety Comments: You were seen today for blood in your stool, your hemoglobin is very stable from prior values. You should return if worsening but imperative to take your medications and not drink alcohol. You should follow-up for consideration of colonoscopy. I have included the name of the surgeon on this form who can perform that, call today for an appointment.
[2020-07-21] MEDS ORDERED: IOVERSOL 320 100 ML VIAL IVP ONE ×2 (15:10→17:31)
[2020-07-21 15:14] LABS: BASOPHILS % (AUTO) 0.8 %; HGB - HEMOGLOBIN 13.8 g/dL (14.0-18.0); LYMPHOCYTES % (AUTO) 27.4 %; MEAN CORPUSCULAR HGB CONC 34.8 g/dL (32.0-36.0); MEAN CORPUSCULAR VOLUME 109.1 fL (80.0-94.0); MEAN PLATELET VOLUME 10.1 fL (7.4-11.4); MONOCYTES % (AUTO) 10.1 %; NEUTROPHILS % (AUTO) 58.7 %; PLT - PLATELET COUNT 72 10^3/uL (130-450); RED BLOOD COUNT 3.63 10^6/uL (4.70-6.10); RED CELL DISTRIBUTION WIDTH 13.2 % (12.0-15.0); WHITE BLOOD COUNT 2.4 x10^3/uL (4.8-10.8)
[2020-07-21 15:22] LABS: ABNORMAL LYMPHS % (MANUAL) 0 %; BAND NEUTROPHILS % (MANUAL) 0 %; INR 1.4 (0.8-1.2); PT - PROTHROMBIN TIME 14.8 secs (9.9-12.6)
[2020-07-21] MEDS ORDERED: MORPHINE 2 MG/ML CARPUJECT IVP STA (15:26)
[2020-07-21] MEDS ORDERED: MORPHINE 2 MG/ML CARPUJECT ONE (15:27)
[2020-07-21 15:32] LABS: ALBUMIN 3.9 g/dL (3.2-5.5); ALBUMIN/GLOBULIN RATIO 1.4 (1.0-2.2); BILIRUBIN,TOTAL 3.4 mg/dL (0.2-1.0); CALCIUM 9.3 mg/dL (8.5-10.3); CREATININE 0.9 mg/dL (0.6-1.2); TOTAL PROTEIN 6.7 g/dL (6.7-8.2)
[2020-07-21 15:36] LABS: BASOPHILS % (MANUAL) 2 %; LYMPHOCYTES # (MANUAL) 0.6 10^3/uL (1.5-3.5); LYMPHOCYTES % (MANUAL) 23 %; MONOCYTES # (MANUAL) 0.3 10^3/uL (0.0-1.0)
[2020-07-21 15:37] LABS: DIFFERENTIAL COMMENT MANUAL DIFFERENTIAL; PLATELET ESTIMATE, MANUAL DECREASED (<130,000) (NORMAL); PLATELET MORPHOLOGY NORMAL APPEARANCE (NORMAL)
--- NOTE | 2020-07-21 16:24 | CT Report ---
PROCEDURE: Abdomen/Pelvis W INDICATIONS: Abdominal pain CONTRAST: IV CONTRAST: Optiray 320 ml: 100 PO CONTRAST: *NO PO CONTRAST TECHNIQUE: After the administration of intravenous contrast, 5 mm thick sections acquired from the diaphragms to the symphysis. 5 mm thick coronal and sagittal reformats were acquired. For radiation dose reducti on, the following was used: automated exposure control, adjustment of mA and/or kV according to lalit ent size. COMPARISON: 06/23/2020 CT angiogram of the abdomen and pelvis FINDINGS: Image quality: Excellent. ABDOMEN: Lung bases: Lung bases are clear. Heart size is normal. Solid organs: Liver and spleen are normal in size and enhancement. Gallbladder is distended with no evidence of wall thickening or adjacent inflammatory change. Biliary system is non dilated. Pancrea s enhances normally. No adrenal nodules. Kidneys demonstrate normal size and enhancement, without h ydronephrosis. Peritoneum and bowel: Bowel loops demonstrate normal wall thickness and caliber. No free fluid or a ir. Nodes and vessels: No retroperitoneal or mesenteric adenopathy by size criteria. Aorta and inferior vena cava are normal in size. Miscellaneous: No ventral hernias. PELVIS: Genitourinary: Bladder wall thickness is normal. Miscellaneous: No inguinal hernias or adenopathy. Bones: No suspicious bony lesions. No vertebral body compression fractures. IMPRESSION: Mild sigmoid diverticulosis with no findings of diverticulitis. Otherwise unremarkable appearance of the abdomen and pelvis. Reviewed by: John Vidal MD on 07/21/2020 4:23 PM PDT Approved by: John Vidal MD on 07/21/2020 4:23 PM PDT Station ID: [id number]
[2020-07-21 17:26] VITALS: BP 122/70
== END 2020-07-21 17:40 | disposition home or self-care (01) ==
LOC: ED 13:35
DX: K92.1 Melena (principal); R10.84 Generalized abdominal pain; F10.20 Alcohol dependence, uncomplicated; K70.10 Alcoholic hepatitis without ascites
CPT/HCPCS: 36415; 74177; 80053; 80320; 85025; 85610; 86850; 86900; 86901; 96374; 96375; 99284; J3411; Q9967

== ENCOUNTER 2020-11-23 18:35 | Emergency (ER) | payer MEDICAID ==
[2020-11-23 19:47] LABS: BASOPHILS % (AUTO) 0.6 %; EOSINOPHILS % (AUTO) 0.9 %; HGB - HEMOGLOBIN 16.2 g/dL (14.0-18.0); LYMPHOCYTES # (AUTO) 0.8 10^3/uL (1.5-3.5); LYMPHOCYTES % (AUTO) 23.9 %; MEAN CORPUSCULAR HEMOGLOBIN 34.6 pg (27.0-31.0); MEAN CORPUSCULAR HGB CONC 35.4 g/dL (32.0-36.0); MEAN CORPUSCULAR VOLUME 97.9 fL (80.0-94.0); MEAN PLATELET VOLUME 8.5 fL (7.4-11.4); MONOCYTES # (AUTO) 0.4 10^3/uL (0.0-1.0); MONOCYTES % (AUTO) 10.1 %; NEUTROPHILS # (AUTO) 2.2 10^3/uL (1.5-6.6); NEUTROPHILS % (AUTO) 64.5 %; PLT - PLATELET COUNT 111 10^3/uL (130-450); RED BLOOD COUNT 4.68 10^6/uL (4.70-6.10); RED CELL DISTRIBUTION WIDTH 14.4 % (12.0-15.0); WHITE BLOOD COUNT 3.5 x10^3/uL (4.8-10.8)
[2020-11-23 20:04] LABS: ALBUMIN 5.1 g/dL (3.2-5.5); ALBUMIN/GLOBULIN RATIO 1.7 (1.0-2.2); BILIRUBIN,TOTAL 1.1 mg/dL (0.2-1.0); CALCIUM 9.3 mg/dL (8.5-10.3); TOTAL PROTEIN 8.1 g/dL (6.7-8.2)
[2020-11-23 20:07] LABS: INR 1.1 (0.8-1.2); PT - PROTHROMBIN TIME 12.1 secs (9.9-12.6)
[2020-11-23 20:14] LABS: BILIRUBIN,URINE NEGATIVE (NEGATIVE); GLUCOSE, URINE (UA) NEGATIVE (NEGATIVE); KETONES,URINE (UA) NEGATIVE (NEGATIVE); LEUKOCYTE ESTERASE, URINE NEGATIVE (NEGATIVE); NITRITE,URINE NEGATIVE (NEGATIVE); OCCULT BLOOD,URINE NEGATIVE (NEGATIVE); PH,URINE 7.5 PH (5.0-7.5); PROTEIN,URINE NEGATIVE (NEGATIVE); UROBILINOGEN,URINE 0.2 (NORMAL) E.U./dL (NORMAL)
[2020-11-23 20:14] LABS: PARTIAL THROMBOPLASTIN TIME 27.4 secs (24.9-33.3)
[2020-11-23 20:15] LABS: CLARITY,URINE CLEAR (CLEAR)
--- NOTE | 2020-11-23 21:31 | ED Physician Documentation ---
PD HPI NVD - Stated complaint Stated Complaint: VOM/BLOODY STOOL [id number] - Chief complaint Chief Complaint: Abd Pain - History obtained from History obtained from: Patient - History of Present Illness Timing - onset: How many weeks ago (1) Timing - details: Gradual onset Associated symptoms: No: Fever Recently seen: Not recently seen - Additonal information Additional information: c/o one week of n/v with blood in vomitus and BRBPR. He also says he fell 2 days ago at home, c/o neck and back pain. Did not call PMD because he says it takes "months" to get an appointment. [facility] because "my fiancee forced me to come". Review of Systems Constitutional: denies: Fever, Chills, Sweats Cardiac: reports: Reviewed and negative Respiratory: reports: Reviewed and negative GI: reports: Abdominal Pain, Nausea, Vomiting, Hematemesis, Bloody / black stool. denies: Constipation, Diarrhea : denies: Dysuria, Frequency Musculoskeletal: reports: Neck pain, Back pain Neurologic: denies: Generalized weakness, Focal weakness, Numbness PD PAST MEDICAL HISTORY - Past Medical History Cardiovascular: None Respiratory: None Neuro: Seizure disorder Endocrine/Autoimmune: None GI: GERD, Chronic diarrhea : None HEENT: None Psych: None Musculoskeletal: None Derm: None - Past Surgical History Past Surgical History: Yes General: Colonoscopy HEENT: Tonsil/Adenoidectomy - Present Medications Home Medications: Ambulatory Orders Medication Instructions Recorded Confirmed tiZANidine [Zanaflex] 4 mg PO TID PRN 06/06/17 06/24/20 Ondansetron Odt [Zofran] 4 mg TL Q6H PRN #10 tablet 03/03/20 06/24/20 Famotidine 20 mg PO DAILY #30 tablet 03/17/20 06/24/20 Albuterol Sulf [Ventolin Hfa 2 puffs INH QID PRN 06/23/20 06/24/20 Inhaler] SUMAtriptan succinate [Sumatriptan 100 mg PO DAILY PRN 06/23/20 06/24/20 Succinate] Gabapentin [Neurontin] 800 mg PO QID 06/24/20 06/24/20 LORazepam [Ativan] 1 mg PO Q6H PRN #15 tablet 06/25/20 Omeprazole 40 mg PO DAILY #30 capsule. 06/25/20 Pnv No.95/Ferrous Fum/Folic AC 1 each PO DAILY #30 tablet 06/25/20 [ Tablet] Sucralfate [Carafate] 1 gm PO TID #60 tablet 06/25/20 Thiamine HCl [Vitamin B-1] 100 mg PO DAILY #30 tablet 06/25/20 LORazepam [Lorazepam] 2 mg PO Q4HR PRN 2 Days #8 tablet 06/27/20 Ondansetron Odt [Zofran] 4 mg TL Q6H PRN #10 tablet 06/27/20 LORazepam [Ativan] 1 mg PO TID PRN #12 tablet 07/21/20 - Allergies Allergies/Adverse Reactions: Allergies Allergy/AdvReac Type Severity Reaction Status Date / Time No Known Drug Allergies Allergy Verified 11/23/20 18:59 - Social History Does the pt smoke?: No Smoking Status: Never smoker Does the pt drink ETOH?: No Does the pt have substance abuse?: No - Immunizations Immunizations are current?: Yes Immunizations: TDAP current <10years - POLST Patient has POLST: No POLST Status: Full Code PD ED PE NORMAL - Vitals Vital signs reviewed: Yes - General General: Alert and oriented X 3, No acute distress, Well developed/nourished - HEENT HEENT: Atraumatic, PERRL, EOMI, Moist mucous membranes, Pharynx benign - Neck Neck: Supple, no meningeal sign, No bony TTP - Cardiac Cardiac: RRR, No murmur, No gallop, No rub - Respiratory Respiratory: No respiratory distress, Clear bilaterally - Abdomen Abdomen: Soft, Non tender, Non distended - Back Back: No spinal TTP - Derm Derm: Normal color, Warm and dry - Extremities Extremities: No deformity, No tenderness to palpate, Normal ROM s pain - Neuro Neuro: Alert and oriented X 3, 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, No motor deficit, No sensory deficit, Normal speech Eye Opening: Spontaneous Motor: Obeys Commands Verbal: Oriented GCS Score: 15 Results - Vitals Vitals: Vital Signs - 24 hr 11/23/20 11/23/20 11/23/20 18:59 20:07 22:10 Temperature 36.4 C L 36.4 C L 36.8 C Heart Rate 88 88 77 Respiratory 20 20 18 Rate Blood Pressure 126/70 121/78 O2 Saturation 98 98 100 11/24/20 00:10 Temperature Heart Rate 86 Respiratory 18 Rate Blood Pressure 142/97 H O2 Saturation 98 Oxygen O2 Source Room air - Labs Labs: Laboratory Tests 11/23/20 11/23/20 11/23/20 19:19 19:36 19:36 WBC 3.5 L RBC 4.68 L Hgb 16.2 Hct 45.8 MCV 97.9 H MCH 34.6 H MCHC 35.4 RDW 14.4 Plt Count 111 L MPV 8.5 Neut # (Auto) 2.2 Lymph # (Auto) 0.8 L [place] # (Auto) 0.4 Eos # (Auto) 0.0 Baso # (Auto) 0.0 Absolute Nucleated RBC 0.00 Nucleated RBC % 0.0 PT INR APTT Sodium 141 Potassium 4.5 Chloride 98 L Carbon Dioxide 31 Anion Gap 12.0 BUN 15 Creatinine 1.0 Estimated GFR (MDRD) 85 L Glucose 104 H Calcium 9.3 Total Bilirubin 1.1 H AST 49 H ALT 22 Alkaline Phosphatase 54 Total Protein 8.1 Albumin 5.1 Globulin 3.0 Albumin/Globulin Ratio 1.7 Lipase 78 H Urine Color YELLOW Urine Clarity CLEAR Urine pH 7.5 Ur Specific [place] 1.010 Urine Protein NEGATIVE Urine Glucose (UA) NEGATIVE Urine Ketones NEGATIVE Urine Occult Blood NEGATIVE Urine Nitrite NEGATIVE Urine Bilirubin NEGATIVE Urine Urobilinogen 0.2 (NORMAL) Ur Leukocyte Esterase NEGATIVE Ur Microscopic Review NOT INDICATED Urine Culture Comments NOT INDICATED Ethyl Alcohol 372.5 Blood Type Antibody Screen 11/23/20 11/23/20 19:36 19:36 WBC RBC Hgb Hct MCV MCH MCHC RDW Plt Count MPV Neut # (Auto) Lymph # (Auto) [place] # (Auto) Eos # (Auto) Baso # (Auto) Absolute Nucleated RBC Nucleated RBC % PT 12.1 INR 1.1 APTT 27.4 Sodium Potassium Chloride Carbon Dioxide Anion Gap BUN Creatinine Estimated GFR (MDRD) Glucose Calcium Total Bilirubin AST ALT Alkaline Phosphatase Total Protein Albumin Globulin Albumin/Globulin Ratio Lipase Urine Color Urine Clarity Urine pH Ur Specific [place] Urine Protein Urine Glucose (UA) Urine Ketones Urine Occult Blood Urine Nitrite Urine Bilirubin Urine Urobilinogen Ur Leukocyte Esterase Ur Microscopic Review Urine Culture Comments Ethyl Alcohol Blood Type AB POSITIVE Antibody Screen NEGATIVE PD MEDICAL DECISION MAKING - ED course Complexity details: reviewed old records, reviewed results, re-evaluated patient, considered differential, d/w patient ED course: abnormalities on blood tests tonight are comparable to previous (leukopenia, thrombocytopenia, elevated LFTs). His blood ethanol level is very high; despite this, he is AAOx3. He has over 30 previous [facility] ED visits on [facility] records going back to 2012. Previous visits include admission for bleeding duodenal ulcers. Previous records reflect h/o alcoholism. On reevaluation, he is in NAD. He has not had any episodes of vomiting nor blood per rectum during ED stay. Results d/w patient. He requested pain medication on initial evaluation and again on reevaluation; he was given IM hydroxyzine initially and reports no improvement on reevaluation. I discussed with him that options for analgesia at this time are very limited: acetaminophen and NSAIDs are best avoided at this time (due to alcoholism and h/o bleeding PUD, respectively). There is no indication at this time for narcotic (opiate) analgesia, which could also be problematic given his alcoholism and current level (serum) of ethanol. Departure - Departure Disposition: 01 Home, Self Care Clinical Impression: Alcoholism, Hematochezia Vomiting Qualifiers: Vomiting type: unspecified Vomiting Intractability: non-intractable Nausea presence: with nausea Qualified Code(s): R11.2 - Nausea with vomiting, unspecified Condition: Good Instructions: ED Hematochezia Stable, ED Nausea Vomiting, ED Alcohol Abuse Follow-Up: Rosette Rodriguez ARNP [Primary Care Provider] - Discharge Date/Time: 11/24/20 00:10
[2020-11-23] MEDS ORDERED: PANTOPRAZOLE 40 MG VIAL IVP STA (21:48)
[2020-11-23] MEDS ORDERED: ONDANSETRON 4 MG/2 ML VIAL IVP STA (21:48)
[2020-11-23] MEDS ORDERED: SODIUM CHLORIDE 0.9% 1,000 ML IV STA (21:50)
[2020-11-24 00:11] VITALS: BP 142/97
== END 2020-11-24 00:10 | disposition home or self-care (01) ==
LOC: ED 18:35
DX: K92.1 Melena (principal); R11.2 Nausea with vomiting, unspecified; F10.20 Alcohol dependence, uncomplicated; Z87.11 Personal history of peptic ulcer disease; M54.2 Cervicalgia; M54.9 Dorsalgia, unspecified; W18.30XA Fall on same level, unspecified, initial encounter; Y92.009 Unspecified place in unspecified non-institutional (private) residence as the place of occurrence of the external cause
CPT/HCPCS: 36415; 80053; 80320; 81003; 83690; 85025; 85610; 85730; 86850; 86900; 86901; 96372; 96374; 96375; 99283; 99284; J3410; 81001; 87086

== ENCOUNTER 2020-12-01 07:41 | Emergency (ER) | payer MEDICAID ==
[2020-12-01] MEDS ORDERED: PANTOPRAZOLE 40 MG VIAL IVP STA (07:50)
[2020-12-01] MEDS ORDERED: SODIUM CHLORIDE 0.9% 1,000 ML IV STA (07:50)
[2020-12-01] MEDS ORDERED: THIAMINE INJ 100 MG in SODIUM CHLORIDE 0.9% 50 ML IV STA (07:50)
[2020-12-01] MEDS ORDERED: LIDOCAINE VISCOUS 2% 15 ML UDC MM STA (07:50)
[2020-12-01] MEDS ORDERED: METOCLOPRAMIDE 10 MG/2 ML VIAL IVP STA (07:50)
[2020-12-01] MEDS ORDERED: MAG HYDROX/AL HYDROX/SIMETH 30 ML UDC PO STA (07:50)
--- NOTE | 2020-12-01 07:54 | ED Physician Documentation ---
History of Present Illness - Stated complaint Stated Complaint: WEAKNESS,N/V,BLOODY EMISIS - History obtained from History obtained from: Patient - Additonal information Additional information: 35-year-old gentleman with alcoholism presents with nausea, diffuse abdominal pain, poor oral intake. He does have a history of labs consistent with cirrhosis but an upper endoscopy done in June of last year and a CT done in July of last year were without mention of varices. He did have a small gastric ulcer on that endoscopy. He states that basically he cannot eat or drink because he is nauseous. Last alcoholic beverage was sometime last night, he is not sure when, he does not feel drunk now. When offered detox he is willing to consider and talk with the social work. History is somewhat vague because of intoxication. Review of Systems Ten Systems: 10 systems reviewed and negative Constitutional: reports: Reviewed and negative Ears: reports: Reviewed and negative Nose: reports: Reviewed and negative Throat: reports: Reviewed and negative Cardiac: reports: Reviewed and negative PD PAST MEDICAL HISTORY - Past Medical History Cardiovascular: None Respiratory: None Neuro: Seizure disorder Endocrine/Autoimmune: None GI: GERD, Chronic diarrhea : None HEENT: None Psych: None Musculoskeletal: None Derm: None - Past Surgical History Past Surgical History: Yes General: Colonoscopy HEENT: Tonsil/Adenoidectomy - Present Medications Home Medications: Ambulatory Orders Medication Instructions Recorded Confirmed tiZANidine [Zanaflex] 4 mg PO TID PRN 06/06/17 06/24/20 Ondansetron Odt [Zofran] 4 mg TL Q6H PRN #10 tablet 03/03/20 06/24/20 Famotidine 20 mg PO DAILY #30 tablet 03/17/20 06/24/20 Albuterol Sulf [Ventolin Hfa 2 puffs INH QID PRN 06/23/20 06/24/20 Inhaler] SUMAtriptan succinate [Sumatriptan 100 mg PO DAILY PRN 06/23/20 06/24/20 Succinate] Gabapentin [Neurontin] 800 mg PO QID 06/24/20 06/24/20 LORazepam [Ativan] 1 mg PO Q6H PRN #15 tablet 06/25/20 Omeprazole 40 mg PO DAILY #30 capsule. 06/25/20 Pnv No.95/Ferrous Fum/Folic AC 1 each PO DAILY #30 tablet 06/25/20 [ Tablet] Sucralfate [Carafate] 1 gm PO TID #60 tablet 06/25/20 Thiamine HCl [Vitamin B-1] 100 mg PO DAILY #30 tablet 06/25/20 LORazepam [Lorazepam] 2 mg PO Q4HR PRN 2 Days #8 tablet 06/27/20 Ondansetron Odt [Zofran] 4 mg TL Q6H PRN #10 tablet 06/27/20 LORazepam [Ativan] 1 mg PO TID PRN #12 tablet 07/21/20 - Allergies Allergies/Adverse Reactions: Allergies Allergy/AdvReac Type Severity Reaction Status Date / Time No Known Drug Allergies Allergy Verified 12/01/20 07:58 - Social History Does the pt smoke?: No Smoking Status: Never smoker Does the pt drink ETOH?: No Does the pt have substance abuse?: No - Immunizations Immunizations are current?: Yes Immunizations: TDAP current <10years - POLST Patient has POLST: No POLST Status: Full Code PD ED PE NORMAL - Vitals Vital signs reviewed: Yes - General General: No acute distress, Other (Slightly slow slurred speech, inconsistent history with regard to dates and times.) - HEENT HEENT: Other (Bloodshot conjunctiva) - Neck Neck: Supple, no meningeal sign, No bony TTP - Cardiac Cardiac: RRR, No murmur - Respiratory Respiratory: No respiratory distress, Clear bilaterally - Abdomen Abdomen: Normal bowel sounds, Soft, Non tender - Back Back: No CVA TTP, No spinal TTP - Derm Derm: Normal color, Warm and dry - Extremities Extremities: No edema, No calf tenderness / cord - Neuro Neuro: Alert and oriented X 3, No motor deficit, No sensory deficit Results - Vitals Vitals: Vital Signs - 24 hr 12/01/20 12/01/20 12/01/20 07:51 08:10 10:00 Temperature 36.2 C L Heart Rate 76 85 72 Respiratory 16 14 19 Rate Blood Pressure 147/108 H 129/95 H 128/76 O2 Saturation 96 98 100 Oxygen O2 Source Room air - Labs Labs: Laboratory Tests 12/01/20 12/01/20 12/01/20 08:00 08:00 08:00 WBC 2.9 L RBC 4.67 L Hgb 16.3 Hct 45.0 MCV 96.4 H MCH 34.9 H MCHC 36.2 H RDW 14.2 Plt Count 107 L MPV 9.6 Neut # (Auto) 1.6 Lymph # (Auto) 0.9 L [place] # (Auto) 0.3 Eos # (Auto) 0.0 Baso # (Auto) 0.0 Absolute Nucleated RBC 0.00 Nucleated RBC % 0.0 Manual Slide Review Indicated Platelet Estimate DECREASED (<130,000) Platelet Morphology NORMAL APPEARANCE RBC Morph Micro Appear 2+ STOMATOCYTES Sodium 137 Potassium 3.9 Chloride 97 L Carbon Dioxide 26 Anion Gap 14.0 H BUN 18 Creatinine 0.9 Estimated GFR (MDRD) 95 Glucose 105 H Calcium 8.9 Magnesium 2.2 Total Bilirubin 3.1 H AST 621 H ALT 136 H Alkaline Phosphatase 69 Total Protein 7.6 Albumin 4.4 Globulin 3.2 Albumin/Globulin Ratio 1.4 Lipase 85 H TSH 3.55 Urine Color Urine Clarity Urine pH Ur Specific [place] Urine Protein Urine Glucose (UA) Urine Ketones Urine Occult Blood Urine Nitrite Urine Bilirubin Urine Urobilinogen Ur Leukocyte Esterase Ur Microscopic Review Urine Culture Comments Nasal Adenovirus (PCR) Nasal B. parapertussis DNA (PCR) Nasal Coronavir 229E PCR Nasal Coronavir HKU1 PCR Nasal Coronavir NL63 PCR Nasal Coronavir OC43 PCR Nasal Enterovir/Rhinovir PCR Nasal Influenza B PCR Nasal Influenza A PCR Nasal Parainfluen 1 PCR Nasal Parainfluen 2 PCR Nasal Parainfluen 3 PCR Nasal Parainfluen 4 PCR Nasal RSV (PCR) Nasal B.pertussis DNA PCR Nasal C.pneumoniae (PCR) [place] Human Metapneumo PCR Nasal M.pneumoniae (PCR) Nasal SARS-CoV-2 (PCR) Salicylates < 6.0 Urine Opiates Screen Ur Oxycodone Screen Urine Methadone Screen Ur Propoxyphene Screen Acetaminophen < 10 L Ur Barbiturates Screen Ur Tricyclics Screen Ur Phencyclidine Scrn Ur Amphetamine Screen U Methamphetamines Scrn U Benzodiazepines Scrn Urine Cocaine Screen U Cannabinoids Screen Ethyl Alcohol 362.1 12/01/20 12/01/20 09:11 09:20 WBC RBC Hgb Hct MCV MCH MCHC RDW Plt Count MPV Neut # (Auto) Lymph # (Auto) [place] # (Auto) Eos # (Auto) Baso # (Auto) Absolute Nucleated RBC Nucleated RBC % Manual Slide Review Platelet Estimate Platelet Morphology RBC Morph Micro Appear Sodium Potassium Chloride Carbon Dioxide Anion Gap BUN Creatinine Estimated GFR (MDRD) Glucose Calcium Magnesium Total Bilirubin AST ALT Alkaline Phosphatase Total Protein Albumin Globulin Albumin/Globulin Ratio Lipase TSH Urine Color DARK YELLOW Urine Clarity CLEAR Urine pH 7.0 Ur Specific [place] 1.010 Urine Protein NEGATIVE Urine Glucose (UA) NEGATIVE Urine Ketones NEGATIVE Urine Occult Blood NEGATIVE Urine Nitrite NEGATIVE Urine Bilirubin NEGATIVE Urine Urobilinogen 0.2 (NORMAL) Ur Leukocyte Esterase NEGATIVE Ur Microscopic Review NOT INDICATED Urine Culture Comments NOT INDICATED Nasal Adenovirus (PCR) NOT DETECTED Nasal B. parapertussis DNA (PCR) NOT DETECTED Nasal Coronavir 229E PCR NOT DETECTED Nasal Coronavir HKU1 PCR NOT DETECTED Nasal Coronavir NL63 PCR NOT DETECTED Nasal Coronavir OC43 PCR NOT DETECTED Nasal Enterovir/Rhinovir PCR NOT DETECTED Nasal Influenza B PCR NOT DETECTED Nasal Influenza A PCR NOT DETECTED Nasal Parainfluen 1 PCR NOT DETECTED Nasal Parainfluen 2 PCR NOT DETECTED Nasal Parainfluen 3 PCR NOT DETECTED Nasal Parainfluen 4 PCR NOT DETECTED Nasal RSV (PCR) NOT DETECTED Nasal B.pertussis DNA PCR NOT DETECTED Nasal C.pneumoniae (PCR) NOT DETECTED [place] Human Metapneumo PCR NOT DETECTED Nasal M.pneumoniae (PCR) NOT DETECTED Nasal SARS-CoV-2 (PCR) NOT DETECTED Salicylates Urine Opiates Screen NEGATIVE Ur Oxycodone Screen NEGATIVE Urine Methadone Screen NEGATIVE Ur Propoxyphene Screen NEGATIVE Acetaminophen Ur Barbiturates Screen NEGATIVE Ur Tricyclics Screen NEGATIVE Ur Phencyclidine Scrn NEGATIVE Ur Amphetamine Screen NEGATIVE U Methamphetamines Scrn NEGATIVE U Benzodiazepines Scrn NEGATIVE Urine Cocaine Screen NEGATIVE U Cannabinoids Screen NEGATIVE Ethyl Alcohol PD MEDICAL DECISION MAKING - ED course ED course: 35-year-old gentleman presents with nausea and abdominal pain related to probably alcoholic gastritis. He says he is unable to keep anything down but clearly has been able to keep alcohol down given his blood alcohol level. We were treating him for this and awaiting social work evaluation and he eloped from the department. Departure - Departure Disposition: 01 Home, Self Care Clinical Impression: Alcohol intoxication Qualifiers: Complication of substance-induced condition: uncomplicated Qualified Code(s): F10.920 - Alcohol use, unspecified with intoxication, uncomplicated Alcoholic hepatitis Qualifiers: Ascites presence: without ascites Qualified Code(s): K70.10 - Alcoholic hepatitis without ascites Condition: Stable Record reviewed to determine appropriate education?: Yes Instructions: Cirrhosis Liver Dc, ED Alcohol Intoxication Comments: Call your doctor to arrange a follow-up appointment, make the next available appointment. In the interim, return anytime if worse or if new symptoms develop. Discharge Date/Time: 12/01/20 10:13
[2020-12-01 08:23] LABS: EOSINOPHILS % (AUTO) 0.7 %; HGB - HEMOGLOBIN 16.3 g/dL (14.0-18.0); LYMPHOCYTES # (AUTO) 0.9 10^3/uL (1.5-3.5); LYMPHOCYTES % (AUTO) 31.4 %; MEAN CORPUSCULAR HEMOGLOBIN 34.9 pg (27.0-31.0); MEAN CORPUSCULAR HGB CONC 36.2 g/dL (32.0-36.0); MEAN CORPUSCULAR VOLUME 96.4 fL (80.0-94.0); MEAN PLATELET VOLUME 9.6 fL (7.4-11.4); MONOCYTES # (AUTO) 0.3 10^3/uL (0.0-1.0); MONOCYTES % (AUTO) 11.3 %; NEUTROPHILS # (AUTO) 1.6 10^3/uL (1.5-6.6); NEUTROPHILS % (AUTO) 55.3 %; PLT - PLATELET COUNT 107 10^3/uL (130-450); RED BLOOD COUNT 4.67 10^6/uL (4.70-6.10); RED CELL DISTRIBUTION WIDTH 14.2 % (12.0-15.0); WHITE BLOOD COUNT 2.9 x10^3/uL (4.8-10.8)
[2020-12-01 08:41] LABS: ACETAMINOPHEN < 10 ug/mL (10-30); ALBUMIN 4.4 g/dL (3.2-5.5); ALBUMIN/GLOBULIN RATIO 1.4 (1.0-2.2); ALKALINE PHOSPHATASE 69 IU/L (42-121); ALT ALANINE AMINOTRANSFERASE 136 IU/L (10-60); AST ASPARTATE AMINOTRANSFERASE 621 IU/L (10-42); BILIRUBIN,TOTAL 3.1 mg/dL (0.2-1.0); BUN - BLOOD UREA NITROGEN 18 mg/dL (6-20); CALCIUM 8.9 mg/dL (8.5-10.3); CARBON DIOXIDE - CO2 26 mmol/L (21-32); CHLORIDE 97 mmol/L (101-111); CREATININE 0.9 mg/dL (0.6-1.2); GLUCOSE 105 mg/dL (70-100); LIPASE 85 U/L (22-51); MAGNESIUM 2.2 mg/dL (1.7-2.8); SALICYLATE < 6.0 mg/dL; TOTAL PROTEIN 7.6 g/dL (6.7-8.2)
[2020-12-01 08:45] LABS: PLATELET ESTIMATE, MANUAL DECREASED (<130,000) (NORMAL); PLATELET MORPHOLOGY NORMAL APPEARANCE (NORMAL)
[2020-12-01 08:46] LABS: RBC MORPHOLOGY (MULTIPLE) 2+ STOMATOCYTES (NORMAL)
[2020-12-01 09:20] LABS: MUDS CUTOFF CONCENTRATIONS CUTOFF CONC BELOW:
[2020-12-01 09:30] LABS: BILIRUBIN,URINE NEGATIVE (NEGATIVE); GLUCOSE, URINE (UA) NEGATIVE (NEGATIVE); KETONES,URINE (UA) NEGATIVE (NEGATIVE); LEUKOCYTE ESTERASE, URINE NEGATIVE (NEGATIVE); NITRITE,URINE NEGATIVE (NEGATIVE); OCCULT BLOOD,URINE NEGATIVE (NEGATIVE); PROTEIN,URINE NEGATIVE (NEGATIVE); UROBILINOGEN,URINE 0.2 (NORMAL) E.U./dL (NORMAL)
[2020-12-01 09:32] LABS: CLARITY,URINE CLEAR (CLEAR)
[2020-12-01 09:41] LABS: AMPHETAMINE SCREEN,URINE NEGATIVE (NEGATIVE); BENZODIAZEPINES SCREEN, URINE NEGATIVE (NEGATIVE); COCAINE SCREEN URINE NEGATIVE (NEGATIVE); METHADONE SCREEN, URINE NEGATIVE (NEGATIVE); METHAMPHETAMINES SCREEN, URINE NEGATIVE (NEGATIVE); OPIATE SCREEN, URINE NEGATIVE (NEGATIVE); OXYCODONE SCREEN, URINE NEGATIVE (NEGATIVE); PROPOXYPHENE SCREEN, URINE NEGATIVE (NEGATIVE); TRICYCLIC ANTIDEPRESSANT,URINE NEGATIVE (NEGATIVE)
[2020-12-01 10:14] VITALS: BP 128/76
[2020-12-01 10:22] LABS: C. PNEUMONIAE- RESP PCR PANEL NOT DETECTED
== END 2020-12-01 10:13 | disposition home or self-care (01) ==
LOC: ED 07:41
DX: F10.229 Alcohol dependence with intoxication, unspecified (principal); K70.10 Alcoholic hepatitis without ascites; Z87.11 Personal history of peptic ulcer disease; Z20.822 Contact with and (suspected) exposure to COVID-19
CPT/HCPCS: 0202U; 36415; 80053; 80306; 80307; 80320; 80329; 81003; 83690; 83735; 84443; 85025; 96365; 96375; 99283; A9270; J2765; J3411; J7040; 81001; 87086

== ENCOUNTER 2020-12-07 12:25 | Emergency (ER) | payer MEDICAID ==
--- NOTE | 2020-12-07 14:20 | ED Physician Documentation ---
History of Present Illness - Stated complaint Stated Complaint: DIARRHEA,NIGHT SWEATS,PINEDA - Chief complaint Chief Complaint: Abd Pain - History obtained from History obtained from: Patient - Additonal information Additional information: 35-year-old man presents after being referred in from self would be [facility] for evaluation. He was seen in December 01 for abdominal pain, decreased appetite, nausea for the past month in the context of chronic alcohol abuse. Upon discharge he was told to follow-up at the [facility]. When he was examined there by a doctor he was apparently told to come back here because his eyes were jaundiced and he still had abdominal pain. Patient states that the clinic was supposed to contact us with report however we received no call. patient has no new complaints at this time aside from a chipped tooth but states he is still open to detox. We will have social work see him and give recs. Review of Systems Ten Systems: 10 systems reviewed and negative Constitutional: reports: Fatigue, Weight Loss. denies: Fever, Chills Throat: reports: Dental pain / toothache GI: reports: Abdominal Pain, Nausea Neurologic: reports: Generalized weakness PD PAST MEDICAL HISTORY - Past Medical History Past Medical History: Yes Cardiovascular: None Respiratory: Other Neuro: Migraines, Peripheral neuropathy, Seizure disorder Endocrine/Autoimmune: None GI: GERD, GI bleed, Ulcers, Chronic diarrhea : None HEENT: None Psych: Depression Musculoskeletal: None Derm: None - Past Surgical History Past Surgical History: Yes General: Colonoscopy HEENT: Tonsil/Adenoidectomy - Present Medications Home Medications: Ambulatory Orders Medication Instructions Recorded Confirmed tiZANidine [Zanaflex] 4 mg PO TID PRN 06/06/17 12/07/20 Famotidine 20 mg PO DAILY #30 tablet 03/17/20 12/07/20 Albuterol Sulf [Ventolin Hfa 2 puffs INH QID PRN 06/23/20 12/07/20 Inhaler] SUMAtriptan succinate [Sumatriptan 100 mg PO DAILY PRN 06/23/20 12/07/20 Succinate] Gabapentin [Neurontin] 800 mg PO QID 06/24/20 12/07/20 Pnv No.95/Ferrous Fum/Folic AC 1 each PO DAILY #30 tablet 06/25/20 12/07/20 [ Tablet] Sucralfate [Carafate] 1 gm PO TID #60 tablet 06/25/20 12/07/20 Thiamine HCl [Vitamin B-1] 100 mg PO DAILY #30 tablet 06/25/20 12/07/20 Ondansetron Odt [Zofran] 4 mg TL Q6H PRN #10 tablet 06/27/20 12/07/20 Pantoprazole Sodium 40 mg PO DAILY 12/07/20 12/07/20 - Allergies Allergies/Adverse Reactions: Allergies Allergy/AdvReac Type Severity Reaction Status Date / Time No Known Drug Allergies Allergy Verified 12/07/20 12:34 - Social History Does the pt smoke?: Yes Smoking Status: Current every day smoker Does the pt drink ETOH?: Yes ETOH Use: Beer Does the pt have substance abuse?: Yes Substance Use and Type: Marijuana - Immunizations Immunizations are current?: Yes Immunizations: TDAP current <10years - POLST Patient has POLST: No POLST Status: Full Code PD ED PE NORMAL - Vitals Vital signs reviewed: Yes - General General: Alert and oriented X 3, No acute distress, Other - HEENT HEENT: Atraumatic, PERRL, EOMI (jaundiced appearing), Other (tooth 6 ttp with partial avulsion. no periodontal swleling) - Neck Neck: Supple, no meningeal sign - Cardiac Cardiac: RRR - Respiratory Respiratory: No respiratory distress, Clear bilaterally - Abdomen Abdomen: Non tender, Non distended, Other (discomfort to epigastric palpation) - Male Male : Deferred - Rectal Rectal: Deferred - Back Back: No CVA TTP - Derm Derm: Normal color, Warm and dry - Extremities Extremities: No deformity - Neuro Neuro: Alert and oriented X 3 - Psych Psych: Normal mood, Normal affect Results - Vitals Vitals: Vital Signs - 24 hr 12/07/20 12/07/20 12/07/20 12:35 13:10 14:50 Temperature 37.3 C 37.1 C Heart Rate 90 90 90 Respiratory 18 16 18 Rate Blood Pressure 125/88 H 109/70 128/71 O2 Saturation 99 95 98 12/07/20 12/07/20 18:00 19:14 Temperature Heart Rate 84 75 Respiratory 20 Rate Blood Pressure 120/77 115/80 O2 Saturation 95 Oxygen O2 Source Room air - Labs Labs: Laboratory Tests 12/07/20 12/07/20 12/07/20 15:45 15:45 16:40 WBC 2.8 L RBC 3.70 L Hgb 13.3 L Hct 36.9 L MCV 99.7 H MCH 35.9 H MCHC 36.0 RDW 13.2 Plt Count 76 L MPV 10.5 Neut # (Auto) Not Reportable Lymph # (Auto) Not Reportable [place] # (Auto) Not Reportable Eos # (Auto) Not Reportable Baso # (Auto) Not Reportable Absolute Nucleated RBC Not Reportable Total Counted 100 Band Neuts % (Manual) 1 Reactive Lymphs % (Man) Not Reportable Abnorm Lymph % (Manual) 0 Nucleated RBC % Not Reportable Neutrophils # (Manual) 1.5 Lymphocytes # (Manual) 1.2 L Monocytes # (Manual) 0.1 Eosinophils # (Manual) 0.1 Basophils # (Manual) 0.0 Differential Comment MANUAL DIFFERENTIAL Platelet Estimate DECREASED (<130,000) Platelet Morphology NORMAL APPEARANCE RBC Morph Micro Appear NORMAL APPEARANCE Sodium 132 L Potassium 3.9 Chloride 94 L Carbon Dioxide 26 Anion Gap 12.0 BUN 18 Creatinine 0.7 Estimated GFR (MDRD) 128 Glucose 95 Calcium 8.5 Total Bilirubin 6.0 H AST 428 H ALT 128 H Alkaline Phosphatase 80 Total Protein 6.4 L Albumin 3.6 Globulin 2.8 Albumin/Globulin Ratio 1.3 Amylase 41 Lipase 93 H Urine Color Urine Clarity Urine pH Ur Specific [place] Urine Protein Urine Glucose (UA) Urine Ketones Urine Occult Blood Urine Nitrite Urine Bilirubin Urine Urobilinogen Ur Leukocyte Esterase Ur Microscopic Review Urine Culture Comments Nasal Adenovirus (PCR) NOT DETECTED Nasal B. parapertussis DNA (PCR) NOT DETECTED Nasal Coronavir 229E PCR NOT DETECTED Nasal Coronavir HKU1 PCR NOT DETECTED Nasal Coronavir NL63 PCR NOT DETECTED Nasal Coronavir OC43 PCR NOT DETECTED Nasal Enterovir/Rhinovir PCR NOT DETECTED Nasal Influenza B PCR NOT DETECTED Nasal Influenza A PCR NOT DETECTED Nasal Parainfluen 1 PCR NOT DETECTED Nasal Parainfluen 2 PCR NOT DETECTED Nasal Parainfluen 3 PCR NOT DETECTED Nasal Parainfluen 4 PCR NOT DETECTED Nasal RSV (PCR) NOT DETECTED Nasal B.pertussis DNA PCR NOT DETECTED Nasal C.pneumoniae (PCR) NOT DETECTED Jorge Human Metapneumo PCR NOT DETECTED Nasal M.pneumoniae (PCR) NOT DETECTED Nasal SARS-CoV-2 (PCR) NOT DETECTED Ethyl Alcohol 271.0 12/07/20 18:09 WBC RBC Hgb Hct MCV MCH MCHC RDW Plt Count MPV Neut # (Auto) Lymph # (Auto) [place] # (Auto) Eos # (Auto) Baso # (Auto) Absolute Nucleated RBC Total Counted Band Neuts % (Manual) Reactive Lymphs % (Man) Abnorm Lymph % (Manual) Nucleated RBC % Neutrophils # (Manual) Lymphocytes # (Manual) Monocytes # (Manual) Eosinophils # (Manual) Basophils # (Manual) Differential Comment Platelet Estimate Platelet Morphology RBC Morph Micro Appear Sodium Potassium Chloride Carbon Dioxide Anion Gap BUN Creatinine Estimated GFR (MDRD) Glucose Calcium Total Bilirubin AST ALT Alkaline Phosphatase Total Protein Albumin Globulin Albumin/Globulin Ratio Amylase Lipase Urine Color YELLOW Urine Clarity CLEAR Urine pH 5.5 Ur Specific [place] 1.020 Urine Protein NEGATIVE Urine Glucose (UA) NEGATIVE Urine Ketones NEGATIVE Urine Occult Blood NEGATIVE Urine Nitrite NEGATIVE Urine Bilirubin SMALL H Urine Urobilinogen 0.2 (NORMAL) Ur Leukocyte Esterase NEGATIVE Ur Microscopic Review NOT INDICATED Urine Culture Comments NOT INDICATED Nasal Adenovirus (PCR) Nasal B. parapertussis DNA (PCR) Nasal Coronavir 229E PCR Nasal Coronavir HKU1 PCR Nasal Coronavir NL63 PCR Nasal Coronavir OC43 PCR Nasal Enterovir/Rhinovir PCR Nasal Influenza B PCR Nasal Influenza A PCR Nasal Parainfluen 1 PCR Nasal Parainfluen 2 PCR Nasal Parainfluen 3 PCR Nasal Parainfluen 4 PCR Nasal RSV (PCR) Nasal B.pertussis DNA PCR Nasal C.pneumoniae (PCR) Jorge Human Metapneumo PCR Nasal M.pneumoniae (PCR) Nasal SARS-CoV-2 (PCR) Ethyl Alcohol PD MEDICAL DECISION MAKING - ED course ED course: 35-year-old man, chronic alcoholic with history of withdrawal seizures presents with chronic abdominal pain, decreased appetite, nausea and fatigue for the past month. Also with chipped right top front canine. He is requesting detox so we will have social work evaluate. Social work was able to put in preliminary workup and found a couple of beds available but had to leave for the evening prior to labwork being completed. Will continue to treat symptomatically. patient in NAD. Labwork stable from previous with mild pancytopenia, mild liver injury attributable to alcohol use. No active bleeding and asymptomatic at present. Endorsed to Dr. Estrella for overnight management. Departure - Departure Clinical Impression: Alcohol abuse
[2020-12-07] MEDS ORDERED: ONDANSETRON 4 MG/2 ML VIAL IVP STA (15:32)
[2020-12-07] MEDS ORDERED: SODIUM CHLORIDE 0.9% 1,000 ML IV STA ×2 (15:32→21:37)
[2020-12-07] MEDS ORDERED: chlordiazePOXIDE 25 MG CAPSULE PO STA (15:33)
[2020-12-07] MEDS ORDERED: THIAMINE 100 MG TABLET PO STA (15:34)
[2020-12-07 15:54] LABS: BASOPHILS % (AUTO) 1.1 %; EOSINOPHILS % (AUTO) 0.4 %; HCT - HEMATOCRIT 36.9 % (42.0-52.0); HGB - HEMOGLOBIN 13.3 g/dL (14.0-18.0); LYMPHOCYTES % (AUTO) 42.6 %; MEAN CORPUSCULAR HEMOGLOBIN 35.9 pg (27.0-31.0); MEAN CORPUSCULAR VOLUME 99.7 fL (80.0-94.0); MEAN PLATELET VOLUME 10.5 fL (7.4-11.4); MONOCYTES % (AUTO) 7.8 %; NEUTROPHILS % (AUTO) 47.7 %; PLT - PLATELET COUNT 76 10^3/uL (130-450); RED CELL DISTRIBUTION WIDTH 13.2 % (12.0-15.0); WHITE BLOOD COUNT 2.8 x10^3/uL (4.8-10.8)
[2020-12-07 15:57] LABS: ABNORMAL LYMPHS % (MANUAL) 0 %
[2020-12-07 16:15] LABS: ALBUMIN 3.6 g/dL (3.2-5.5); ALBUMIN/GLOBULIN RATIO 1.3 (1.0-2.2); CALCIUM 8.5 mg/dL (8.5-10.3); CREATININE 0.7 mg/dL (0.6-1.2); POTASSIUM 3.9 mmol/L (3.5-5.0); TOTAL PROTEIN 6.4 g/dL (6.7-8.2)
[2020-12-07 16:18] LABS: EOSINOPHILS # (MANUAL) 0.1 10^3/uL (0-0.7)
[2020-12-07 16:19] LABS: DIFFERENTIAL COMMENT MANUAL DIFFERENTIAL; PLATELET ESTIMATE, MANUAL DECREASED (<130,000) (NORMAL); PLATELET MORPHOLOGY NORMAL APPEARANCE (NORMAL); RBC MORPHOLOGY (MULTIPLE) NORMAL APPEARANCE (NORMAL)
[2020-12-07 16:26] LABS: LYMPHOCYTES % (MANUAL) 43 %
[2020-12-07 16:27] LABS: BAND NEUTROPHILS % (MANUAL) 1 %; LYMPHOCYTES # (MANUAL) 1.2 10^3/uL (1.5-3.5); MONOCYTES # (MANUAL) 0.1 10^3/uL (0.0-1.0); NEUTROPHILS # (MANUAL) 1.5 10^3/uL (1.5-6.6)
[2020-12-07 18:13] LABS: B. PARAPERTUSSIS- RESP PCR PAN NOT DETECTED; B. PERTUSSIS- RESP PCR PANEL NOT DETECTED; C. PNEUMONIAE- RESP PCR PANEL NOT DETECTED; CORONAVIRUS 229E-RESP PCR NOT DETECTED; CORONAVIRUS HKU1-RESP PCR NOT DETECTED; CORONAVIRUS NL63-RESP PCR NOT DETECTED; CORONAVIRUS OC43-RESP PCR NOT DETECTED; HUMAN METAPNEUMOVIRUS NOT DETECTED; INFLUENZA A- RESP PCR PANEL NOT DETECTED; INFLUENZA B - RESP PCR PANEL NOT DETECTED; M. PNEUMONIAE- RESP PCR PANEL NOT DETECTED; PARAINFLUENZA VIRUS 1 NOT DETECTED; PARAINFLUENZA VIRUS 2 NOT DETECTED; PARAINFLUENZA VIRUS 3 NOT DETECTED; PARAINFLUENZA VIRUS 4 NOT DETECTED; RHINOVIRUS/ENTEROVIRUS NOT DETECTED; RSV- RESP PCR PANEL NOT DETECTED; SARS-CoV-2 -RESP PCR PANEL NOT DETECTED
[2020-12-07 18:29] LABS: GLUCOSE, URINE (UA) NEGATIVE (NEGATIVE); KETONES,URINE (UA) NEGATIVE (NEGATIVE); LEUKOCYTE ESTERASE, URINE NEGATIVE (NEGATIVE); NITRITE,URINE NEGATIVE (NEGATIVE); OCCULT BLOOD,URINE NEGATIVE (NEGATIVE); PH,URINE 5.5 PH (5.0-7.5); PROTEIN,URINE NEGATIVE (NEGATIVE); UROBILINOGEN,URINE 0.2 (NORMAL) E.U./dL (NORMAL)
[2020-12-07 18:34] LABS: BILIRUBIN,URINE SMALL (NEGATIVE); CLARITY,URINE CLEAR (CLEAR); ICTOTEST,URINE POSITIVE
[2020-12-07] MEDS ORDERED: KETOROLAC 30 MG/ML VIAL IVP STA (21:37)
[2020-12-07] MEDS ORDERED: DROPERIDOL 5 MG/2 ML VIAL IVP STA (21:38)
[2020-12-07] MEDS ORDERED: PHENobarbital 65 MG/ML VIAL IV STA (21:40)
--- NOTE | 2020-12-08 02:49 | ED Physician Documentation ---
ED Addendum - Addendum Addendum: 12/08/20 02:46 I assumed care of the patient on change of shift. He had been resting for a while and then awoke and was feeling a little bit anxious and nauseous. It did feel that he was likely having some withdrawal symptoms. He also complained of some headache and states he gets occasional migraines. We gave him some more IV fluids along with Toradol and Inapsine for nausea and migraine. I gave phenobarb 260 mg as a treatment regimen for the alcohol withdrawal. These medicines helped quite a bit and his CIWA score was down to 2 and he remained comfortable with that. The ER nurse talked with his [facility] detox who felt the patient was not appropriate for their facility since he does have history of seizures in the past. They suggest of medical detox instead. At this point we will need to await social work in the morning to help facilitate placement. The patient is willing and asking for help like this.
[2020-12-08 07:46] LABS: BASOPHILS % (AUTO) 0.7 %; EOSINOPHILS % (AUTO) 0.7 %; HCT - HEMATOCRIT 38.2 % (42.0-52.0); HGB - HEMOGLOBIN 13.8 g/dL (14.0-18.0); LYMPHOCYTES # (AUTO) 1.1 10^3/uL (1.5-3.5); LYMPHOCYTES % (AUTO) 39.6 %; MEAN CORPUSCULAR HEMOGLOBIN 36.3 pg (27.0-31.0); MEAN CORPUSCULAR HGB CONC 36.1 g/dL (32.0-36.0); MEAN CORPUSCULAR VOLUME 100.5 fL (80.0-94.0); MEAN PLATELET VOLUME 10.6 fL (7.4-11.4); MONOCYTES # (AUTO) 0.2 10^3/uL (0.0-1.0); MONOCYTES % (AUTO) 7.6 %; NEUTROPHILS # (AUTO) 1.4 10^3/uL (1.5-6.6); NEUTROPHILS % (AUTO) 51.4 %; PLT - PLATELET COUNT 69 10^3/uL (130-450); RED CELL DISTRIBUTION WIDTH 12.9 % (12.0-15.0); WHITE BLOOD COUNT 2.8 x10^3/uL (4.8-10.8)
[2020-12-08 07:47] LABS: SLIDE REVIEW? Indicated
[2020-12-08 08:15] LABS: PLATELET ESTIMATE, MANUAL DECREASED (<130,000) (NORMAL); PLATELET MORPHOLOGY NORMAL APPEARANCE (NORMAL); RBC MORPHOLOGY (MULTIPLE) NORMAL APPEARANCE (NORMAL)
[2020-12-08 08:16] LABS: ALBUMIN 3.7 g/dL (3.2-5.5); ALBUMIN/GLOBULIN RATIO 1.4 (1.0-2.2); BILIRUBIN,TOTAL 5.2 mg/dL (0.2-1.0); CALCIUM 8.9 mg/dL (8.5-10.3); CREATININE 0.6 mg/dL (0.6-1.2); POTASSIUM 4.2 mmol/L (3.5-5.0); TOTAL PROTEIN 6.3 g/dL (6.7-8.2)
[2020-12-08] MEDS ORDERED: LORazepam 2 MG/ML VIAL IVP STA (08:32)
[2020-12-08 08:57] LABS: INR 1.2 (0.8-1.2); PT - PROTHROMBIN TIME 13.6 secs (9.9-12.6)
[2020-12-08 09:04] LABS: PARTIAL THROMBOPLASTIN TIME 28.4 secs (24.9-33.3)
--- NOTE | 2020-12-08 11:31 | ED Physician Documentation ---
ED Addendum - Addendum Addendum: 12/08/20 11:30 Patient accepted to [facility]. Does not need prescriptions. We will go by Medicaid taxi. Social work arranged for this. Symptoms controlled with Ativan in the ER. This document was made in part using voice recognition software. While efforts are made to proofread this document, sound alike and grammatical errors may occur. Departure - Departure Disposition: 01 Home, Self Care Clinical Impression: Alcohol abuse Alcoholic hepatitis Qualifiers: Ascites presence: unspecified Qualified Code(s): K70.10 - Alcoholic hepatitis without ascites Condition: Good Instructions: ED Alcohol Abuse Follow-Up: Rosette Rodriguez ARNP [Primary Care Provider] - As Needed Comments: Follow up with [facility] today as scheduled. Return if you worsen.
[2020-12-08 12:54] VITALS: BP 142/89
== END 2020-12-08 12:54 | disposition home or self-care (01) ==
LOC: ED 12:25
DX: F10.139 Alcohol abuse with withdrawal, unspecified (principal); K70.10 Alcoholic hepatitis without ascites; S02.5XXA Fracture of tooth (traumatic), initial encounter for closed fracture; X58.XXXA Exposure to other specified factors, initial encounter; G43.909 Migraine, unspecified, not intractable, without status migrainosus; D61.818 Other pancytopenia; Z20.822 Contact with and (suspected) exposure to COVID-19; G40.909 Epilepsy, unspecified, not intractable, without status epilepticus; F17.200 Nicotine dependence, unspecified, uncomplicated
CPT/HCPCS: 0202U; 36415; 80053; 80320; 81003; 82150; 83690; 85025; 85610; 85730; 93005; 96361; 96374; 96375; 99283; 99284; A9270; J2060; 81001; 87086

== ENCOUNTER 2021-01-25 10:45 | Outpatient (CLI) | payer MEDICAID | END 2021-01-25 10:46 | disposition E | LOC: EMS 10:45 ==